=== PATIENT | female | born 1990 | race Caucasian/White ===

== ENCOUNTER 2018-01-17 20:02 | Emergency (ER) | payer BC ==
[2018-01-17] MEDS ORDERED: DEXAMETHASONE 10 MG/ML VIAL ONE (21:51)
[2018-01-17] MEDS ORDERED: MORPHINE 4 MG/ML SYR ONE (21:51)
[2018-01-17] MEDS ORDERED: DIAZEPAM 5 MG TABLET ONE (21:51)
[2018-01-17] MEDS ORDERED: NA CHLORIDE 0.9% 1,000 ML ONE (21:52)
[2018-01-17] MEDS ORDERED: KETOROLAC 30 MG/ML INJ ONE (21:52)
[2018-01-17] MEDS ORDERED: ONDANSETRON 4 MG/2 ML VIAL ONE (21:52)
--- NOTE | 2018-01-17 22:03 | RAD REPORT ---
EXAM DESCRIPTION: CT - Spine Lumbar Wo Con - 01/17/2018 9:34 pm CLINICAL HISTORY: History of herniated disc with recent steroid injection, new onset sharp pain in b ack COMPARISON: None. TECHNIQUE: Thin section axial imaging of the lumbar spine was performed. Sagittal and coronal recon struction images were generated and reviewed. All CT scans are performed using dose optimization technique as appropriate and may include automated exposure control or mA/KV adjustment according to patient size. FINDINGS: Lumbar bodies are normal in height and normal in AP alignment. There is a very minimal rig ht convex curvature of the lumbar spine. No compression fracture. No acute vertebral body finding. Th ere are no pars defects identified. Mild facet joint degenerative change present at L4-5. . No paraspinal soft tissue mass. Disc bulge changes are evident at L5-S1. Disc bulge appears to contact the left S1 nerve root. Mild d isc bulge present at L4-5. No central spinal stenosis. No significant foraminal encroachment seen. IMPRESSION: L5-S1 disc bulge appearing to contact the left S1 nerve root. Mild disc bulge at L4-5. Central canal detail is inherently limited. No finding to suspect epidural abscess or significant epi dural mass.
[2018-01-17 22:16] LABS: Urine Blood TRACE (NEG); Urine Glucose NEGATIVE (NEG); Urine Protein NEGATIVE (NEG); Urine Specific Gravity >1.030 (1.005-1.030); Urine pH 5.5 (5.0-7.0)
[2018-01-17 22:17] LABS: Absolute Lymphocytes (CBC) 2.7 K/uL (0.7-4.9); Absolute Monocytes 0.8 K/uL (0.1-1.3); Absolute Neutrophil 8.7 K/uL (1.8-8.0); Basophils % 0.4 % (0-1.3); Eosinophils % 0.7 % (0-4.4); MCH 27.2 pg (27.0-35.0); MPV 9.1 fL (7.6-11.3); Monocytes % 6.7 % (3.3-12.3); RBC Red Blood Cell Count 5.06 M/uL (3.86-4.86)
--- NOTE | 2018-01-17 22:32 | EDPHYS ---
Physician Documentation [facility] Name: Belia Peter Age: 27 yrs Sex: Female : 1990 Arrival Date: 01/17/2018 Time: 20:10 Bed 15 Private MD: Brown Bower E ED Physician Moris Faustin HPI: 01/17 21:10 This 27 yrs old Female presents to ER via Ambulatory with complaints of Back eloina Pain, Leg Pain. 21:10 The patient presents with pain that is acute, with no known mechanism of injury, and eloina decreased range of motion. The symptoms are located in the low back, right low back. Onset: The symptoms/episode began/occurred 3 day(s) ago. The pain radiates to the right low back. The pain does not radiate. Associated signs and symptoms: The patient has no apparent associated signs or symptoms. Modifying factors: The patient symptoms are alleviated by remaining still, the patient symptoms are aggravated by any movement, standing. Severity of symptoms: At their worst the symptoms were mild, in the emergency department the symptoms are unchanged. The patient has experienced similar episodes in the past, multiple times. 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 - Social history:: Smoking status: Patient/guardian denies using tobacco. - Ebola Screening: : No symptoms or risks identified at this time. - Family history:: not pertinent. ROS: 21:10 Constitutional: Negative for fever, chills, and weight loss, Eyes: Negative for injury, eloina pain, redness, and discharge, ENT: Negative for injury, pain, and discharge, Neck: Negative for injury, pain, and swelling, Cardiovascular: Negative for chest pain, palpitations, and edema, Respiratory: Negative for shortness of breath, cough, wheezing, and pleuritic chest pain, Abdomen/GI: Negative for abdominal pain, nausea, vomiting, diarrhea, and constipation, : Negative for injury, bleeding, discharge, and swelling, MS/Extremity: Negative for injury and deformity, Skin: Negative for injury, rash, and discoloration, Neuro: Negative for headache, weakness, numbness, tingling, and seizure, Psych: Negative for depression, anxiety, suicide ideation, homicidal ideation, and hallucinations, Allergy/Immunology: Negative for hives, rash, and allergies, Endocrine: Negative for neck swelling, polydipsia, polyuria, polyphagia, and marked weight changes, Hematologic/Lymphatic: Negative for swollen nodes, abnormal bleeding, and unusual bruising. 21:10 Back: Positive for decreased range of motion, pain at rest, pain with movement, radiated pain, of the right low back. Exam: 21:10 Constitutional: This is a well developed, well nourished patient who is awake, alert, eloina and in no acute distress. Head/Face: Normocephalic, atraumatic. Eyes: Pupils equal round and reactive to light, extra-ocular motions intact. Lids and lashes normal. Conjunctiva and sclera are non-icteric and not injected. Cornea within normal limits. Periorbital areas with no swelling, redness, or edema. ENT: Nares patent. No nasal discharge, no septal abnormalities noted. Tympanic membranes are normal and external auditory canals are clear. Oropharynx with no redness, swelling, or masses, exudates, or evidence of obstruction, uvula midline. Mucous membranes moist. Neck: Trachea midline, no thyromegaly or masses palpated, and no cervical lymphadenopathy. Supple, full range of motion without nuchal rigidity, or vertebral point tenderness. No Meningismus. Chest/axilla: Normal chest wall appearance and motion. Nontender with no deformity. No lesions are appreciated. Cardiovascular: Regular rate and rhythm with a normal S1 and S2. No gallops, murmurs, or rubs. Normal PMI, no JVD. No pulse deficits. Respiratory: Lungs have equal breath sounds bilaterally, clear to auscultation and percussion. No rales, rhonchi or wheezes noted. No increased work of breathing, no retractions or nasal flaring. Abdomen/GI: Soft, non-tender, with normal bowel sounds. No distension or tympany. No guarding or rebound. No evidence of tenderness throughout. Female : Normal external genitalia. Skin: Warm, dry with normal turgor. Normal color with no rashes, no lesions, and no evidence of cellulitis. MS/ Extremity: Pulses equal, no cyanosis. Neurovascular intact. Full, normal range of motion. Neuro: Awake and alert, GCS 15, oriented to person, place, time, and situation. Cranial nerves II-XII grossly intact. Motor strength 5/5 in all extremities. Sensory grossly intact. Cerebellar exam normal. Normal gait. Psych: Awake, alert, with orientation to person, place and time. Behavior, mood, and affect are within normal limits. Vital Signs: 20:16 BP 139 / 104; Pulse 88; Resp 16; Temp 97.5(TE); Pulse Ox 100% on R/A; Weight 133.81 kg; la1 Height 5 ft. 7 in. (170.18 cm); 22:40 BP 114 / 77; Pulse 70; Resp 18; Pulse Ox 98% on R/A; lp1 20:16 Body Mass Index 46.20 (133.81 kg, 170.18 cm) [facility] MDM: 20:59 Patient medically screened. [facility] 22:31 Data reviewed: vital signs, nurses notes, lab test result(s), radiologic studies, CT eloina scan. 01/17 21:10 Order name: CBC with Diff; Complete Time: 22:38 [facility] 01/17 21:10 Order name: Comprehensive Metabolic Panel; Complete Time: 22:38 [facility] 01/17 21:10 Order name: CT Lumbar Spine Wo Con; Complete Time: 22:31 [facility] 01/17 21:53 Order name: Urine Dipstick--Ancillary (enter results); Complete Time: 22:31 [facility] 01/17 21:10 Order name: Urine Dipstick-Ancillary (obtain specimen); Complete Time: 22:11 [facility] Administered Medications: 22:10 Drug: NS 0.9% 1000 ml Route: IV; Rate: 1 bolus; Site: left antecubital; 1 23:00 Follow up: IV Status: Completed infusion aa 22:10 Drug: TORadol 30 mg Route: IVP; Site: left antecubital; 1 22:11 Drug: morphine 4 mg Route: IVP; Site: left antecubital; lp1 22:11 Drug: Zofran 4 mg Route: IVP; Site: left antecubital; 1 01/18 03:52 Follow up: Response: No adverse reaction [facility] 01/17 22:11 Drug: Decadron - Dexamethasone 10 mg Route: IVP; Site: left antecubital; 1 23:15 Follow up: Response: No adverse reaction; Pain is decreased aa1 22:12 Drug: Valium 5 mg Route: PO; lp1 23:15 Follow up: Response: No adverse reaction; Pain is decreased aa1 Disposition: 01/17/18 22:32 Discharged to Home. Impression: Low back pain, Sciatica, right side. - Condition is Fair. - Discharge Instructions: Back Pain, Adult, Chronic Back Pain, Sciatica, Back Pain, Adult, [id number], Epidural Steroid Injection, Sciatica, [id number]. - Prescriptions for Ibuprofen 600 mg Oral Tablet - take 1 tablet by ORAL route every 6 hours As needed take with food; 30 tablet. Skelaxin 800 mg Oral Tablet - take 1 tablet by ORAL route every 6 hours As needed; 28 tablet. Tylenol- Codeine #3 300-30 mg Oral Tablet - take 2 tablets by ORAL route every 6 hours As needed; 26 tablet. Medrol (Luc) 4 mg Oral Tablets, Dose Pack - take 1 tablet by ORAL route as directed - follow package instructions; 1 packet. - Medication Reconciliation Form, Thank You Letter, Antibiotic Education, Prescription Opioid Use, Family Work Release form. - Follow up: Brown Bower; When: 2 - 3 days; Reason: Recheck today's complaints, Continuance of care, Re-evaluation by your physician. Follow up: Sylvester De Jesus; When: 2 - 3 days; Reason: Recheck today's complaints, Continuance of care, Re-evaluation by your physician. - Problem is new. - Symptoms have improved. Signatures: Dispatcher [employer] EDFatmata Choi RN RN aa1 Moris Faustin MD MD cha Pena, Laura RN RN lp1 Jae Cifuentes RN RN la1 Corrections: (The following items were deleted from the chart) 23:13 22:32 01/17/2018 22:32 Discharged to Home. Impression: Low back pain; Sciatica, right aa1 side. Condition is Fair. Discharge Instructions: Back Pain, Adult, Chronic Back Pain, Sciatica, Back Pain, Adult, [id number], Epidural Steroid Injection, Sciatica, [id number]. Prescriptions for Ibuprofen 600 mg Oral Tablet - take 1 tablet by ORAL route every 6 hours As needed take with food; 30 tablet, Skelaxin 800 mg Oral Tablet - take 1 tablet by ORAL route every 6 hours As needed; 28 tablet, Tylenol-Codeine #3 300-30 mg Oral Tablet - take 2 tablets by ORAL route every 6 hours As needed; 26 tablet, Medrol (Luc) 4 mg Oral Tablets, Dose Pack - take 1 tablet by ORAL route as directed - follow package instructions; 1 packet. and Forms are Medication Reconciliation Form, Thank You Letter, Antibiotic Education, Prescription Opioid Use. Follow up: Brown Bower; When: 2 - 3 days; Reason: Recheck today's complaints, Continuance of care, Re-evaluation by your physician. Follow up: Sylvester De Jesus; When: 2 - 3 days; Reason: Recheck today's complaints, Continuance of care, Re-evaluation by your physician. Problem is new. Symptoms have improved. eloina
--- NOTE | 2018-01-17 22:32 | ER ---
Nurse's Notes [facility] Name: Belia Peter Age: 27 yrs Sex: Female : 1990 Arrival Date: 01/17/2018 Time: 20:10 Bed 15 Private MD: Brown Bower E Diagnosis: Low back pain;Sciatica, right side Presentation: 01/17 20:15 Presenting complaint: Patient states: I have a herniated disk and I got a steroid la1 injection on Wednesday morning, Wednesday night I began having sharp, shooting pain in my back that is new and when I called the office they said to come to the ER. Transition of care: patient was not received from another setting of care. Onset of symptoms was January 17, 2018. Risk Assessment: Do you want to hurt yourself or someone else? Patient reports no desire to harm self or others. Initial Sepsis Screen: Does the patient meet any 2 criteria? No. Patient's initial sepsis screen is negative. Does the patient have a suspected source of infection? No. Patient's initial sepsis screen is negative. Care prior to arrival: None. 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 - Social history:: Smoking status: Patient/guardian denies using tobacco. - Ebola Screening: : No symptoms or risks identified at this time. - Family history:: not pertinent. Screenin:40 Abuse screen: Denies threats or abuse. Denies injuries from another. Nutritional lp1 screening: No deficits noted. Tuberculosis screening: No symptoms or risk factors identified. Fall Risk None identified. Assessment: 21:01 Reassessment: Patient appears in no apparent distress at this time. Patient and/or aa1 family updated on plan of care and expected duration. Pain level reassessed. Patient is alert, oriented x 3, equal unlabored respirations, skin warm/dry/pink. Dr. Faustin at bedside for initial provider assessment. 21:28 Reassessment: Patient appears in no apparent distress at this time. Pt taken to CT at aa1 this time. 23:10 General: Appears uncomfortable, Behavior is appropriate for age. Pain: Complains of lp1 pain in lumbar area Pain currently is 5 out of 10 on a pain scale. Neuro: Level of Consciousness is awake, alert, obeys commands, Oriented to person, place, time, situation. Respiratory: Respiratory effort is even, unlabored. Derm: Skin is pink, warm \T\ dry. Vital Signs: 20:16 BP 139 / 104; Pulse 88; Resp 16; Temp 97.5(TE); Pulse Ox 100% on R/A; Weight 133.81 kg; la1 Height 5 ft. 7 in. (170.18 cm); 22:40 BP 114 / 77; Pulse 70; Resp 18; Pulse Ox 98% on R/A; lp1 20:16 Body Mass Index 46.20 (133.81 kg, 170.18 cm) la1 ED Course: 20:10 Patient arrived in ED. al2 20:10 Brown Bower MD is Private Physician. al2 20:16 Triage completed. la1 20:16 Arm band placed on left wrist. la1 20:59 Moris Faustin MD is Attending Physician. eloina 21:00 Fatmata Ramirez RN is Primary Nurse. aa1 21:[address] kc3 21:35 CT Lumbar Spine Wo Con In Process Unspecified. EDMS 22:00 Inserted saline lock: 20 gauge in left antecubital area, using aseptic technique. Blood lp1 collected. 22:32 Brown Bower MD is Referral Physician. eloina 22:32 Sylvester De Jesus MD is Referral Physician. eloina 22:40 Patient has correct armband on for positive identification. lp1 23:08 No provider procedures requiring assistance completed. IV discontinued, No lp1 redness/swelling at site. Pressure dressing applied. Administered Medications: 22:10 Drug: NS 0.9% 1000 ml Route: IV; Rate: 1 bolus; Site: left antecubital; lp1 23:00 Follow up: IV Status: Completed infusion aa1 22:10 Drug: TORadol 30 mg Route: IVP; Site: left antecubital; lp1 22:11 Drug: morphine 4 mg Route: IVP; Site: left antecubital; lp1 22:11 Drug: Zofran 4 mg Route: IVP; Site: left antecubital; lp1 01/18 03:52 Follow up: Response: No adverse reaction aa1 01/17 22:11 Drug: Decadron - Dexamethasone 10 mg Route: IVP; Site: left antecubital; lp1 23:15 Follow up: Response: No adverse reaction; Pain is decreased aa1 22:12 Drug: Valium 5 mg Route: PO; lp1 23:15 Follow up: Response: No adverse reaction; Pain is decreased aa1 Outcome: 22:32 Discharge ordered by MD. duvall 23:09 Discharged to home ambulatory, with significant other. lp1 23:09 Condition: good 23:09 Discharge instructions given to patient, Instructed on discharge instructions, follow up and referral plans. medication usage, Demonstrated understanding of instructions, follow-up care, medications, Prescriptions given X 4. 23:13 Patient left the ED. aa1 Signatures: Dispatcher [employer] EDMS Fatmata Ramirez RN RN aa1 Moris Faustin MD MD cha Pena, Laura, RN RN lp1 Jae Cifuentes RN RN la1 Love, Angelica al2 Campbell, Kim 3
[2018-01-17 22:34] LABS: Albumin 3.6 g/dL (3.4-5.0); Bilirubin Total 0.2 mg/dL (0.2-1.0); Potassium 3.9 mmol/L (3.5-5.1); Protein, Total 8.1 g/dL (6.4-8.2)
[2018-01-17 23:16] VITALS: TEMP 97.5
[2018-01-17 23:17] VITALS: BP 114/77; O2SAT 98
== END 2018-01-17 23:13 | disposition home or self-care (01) ==
LOC: ER 20:02
DX: M54.41 Lumbago with sciatica, right side (principal)
CPT/HCPCS: 36415; 72131; 80053; 81003; 85025; 96361; 96374; 96375; 99284; J1100; J2405; J7030

== ENCOUNTER 2019-04-11 22:06 | Emergency (ER) | payer BC, SELFPAY ==
[2019-04-11] MEDS ORDERED: HYDROCODONE/APAP 7.5/325 MG TAB ONE (23:19)
[2019-04-11] MEDS ORDERED: TETRACAINE HCL 0.5% 4ML OPTH ONE (23:20)
[2019-04-11] MEDS ORDERED: FLUORESCEIN SODIUM 1 MG/WRAP ONE (23:20)
[2019-04-12] LABS: Urine Blood TRACE (NEG); Urine Glucose NEGATIVE (NEG); Urine Protein NEGATIVE (NEG)
[2019-04-12] MEDS ORDERED: FLUORESCEIN SODIUM 1 MG/WRAP ONE (00:18)
[2019-04-12] MEDS ORDERED: GENTAMICIN 0.3% OPTH DROP 5ML ONE (00:29)
--- NOTE | 2019-04-12 00:32 | EDPHYS ---
Physician Documentation [facility] Name: Belia Peter Age: 29 yrs Sex: Female : 1990 Arrival Date: 04/11/2019 Time: 22:08 Bed 16 Private MD: ED Physician Jordan Fierro HPI: 04/11 23:20 This 29 yrs old Female presents to ER via Ambulatory with complaints of Eye cp Swelling. 23:20 The patient is experiencing decreased vision, pain, redness, to the right eye, caused cp by an unknown mechanism. Onset: The symptoms/episode began/occurred yesterday, and became worse today. 23:20 Duration: the symptoms are continuous. Aggravated by light, opening eye, Alleviated by cp nothing. Associated signs and symptoms: Pertinent negatives: ear ache, fever, runny nose, drainage from eye. Patient wears glasses, wears soft contacts, patient reports she has not worn any contact lenses for the past week. Severity of symptoms: in the emergency department the symptoms are unchanged despite home interventions. 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 - Social history:: Smoking status: Patient/guardian denies using tobacco, Patient/guardian denies using alcohol, street drugs. - Ebola Screening: : Patient negative for fever greater than or equal to 101.5 degrees Fahrenheit, and additional compatible Ebola Virus Disease symptoms Patient denies exposure to infectious person Patient denies travel to an Ebola-affected area in the 21 days before illness onset. ROS: 23:20 Constitutional: Negative for body aches, chills, fever, poor PO intake. cp 23:20 Eyes: Positive for pain, photophobia, redness, visual disturbance, of the right eye, cp Negative for discharge, foreign body sensation. 23:20 ENT: Negative for drainage from ear(s), ear pain, sinus congestion, sinus pain, sore throat, difficulty swallowing, difficulty handling secretions. 23:20 Neck: Negative for pain with movement, pain at rest, stiffness. 23:20 Cardiovascular: Negative for chest pain, palpitations. 23:20 Respiratory: Negative for cough, shortness of breath, wheezing. 23:20 Abdomen/GI: Negative for abdominal pain, nausea, vomiting, and diarrhea. 23:20 Skin: Negative for cellulitis, rash. 23:20 Neuro: Negative for altered mental status, dizziness, headache, numbness, weakness. 23:20 All other systems are negative. Exam: 23:30 Constitutional: The patient appears alert, awake, non-toxic, well developed, well cp nourished, in obvious pain, uncomfortable. 23:30 Head/Face: Normocephalic, atraumatic. cp 23:30 Eyes: Periorbital structures: appear normal, no erythema, no swelling, Pupils: equal, round, and reactive to light and accomodation, Extraocular movements: intact throughout, Conjunctiva: injected, bilaterally, right eye worse than left, Corneas: abrasion, on the right, at 6 o'clock, medium size, foreign body, is not appreciated, a fluorescein strip employed to appreciate the findings, Anterior chamber: normal, no hyphema, Lids and lashes: drainage, is not appreciated, mild swelling of right upper and lower lids. Intraocular pressure: right eye = 20mmHg, left eye = 16mmHg. 23:30 ENT: External ear(s): are unremarkable, Ear canal(s): are normal, clear, TM's: dullness, bilaterally, Nose: is normal, Mouth: Lips: moist, Oral mucosa: pink and intact, moist, Posterior pharynx: is normal, airway is patent, no erythema, no exudate. 23:30 Neck: ROM/movement: is normal, is supple, without pain, no range of motions limitations, no nuchal rigidity, Lymph nodes: no appreciated lymphadenopathy. 23:30 Chest/axilla: Inspection: normal, Palpation: is normal, no crepitus, no tenderness. 23:30 Cardiovascular: Rate: normal, Rhythm: regular. 23:30 Respiratory: the patient does not display signs of respiratory distress, Respirations: normal, no use of accessory muscles, no retractions, no splinting, no tachypnea, labored breathing, is not present, Breath sounds: are clear throughout, no decreased breath sounds, no stridor, no wheezing. 23:30 Abdomen/GI: Exam negative for discomfort, distension, guarding, Inspection: abdomen appears normal. 23:30 Skin: cellulitis, is not appreciated, no rash present. 23:30 Neuro: Orientation: to person, place \T\ time. Mentation: is normal, Cerebellar function: is grossly normal, Motor: moves all fours, strength is normal, Sensation: is normal. Vital Signs: 22:18 BP 140 / 70; Pulse 91; Resp 17; Temp 98.2(O); Pulse Ox 99% on R/A; Weight 140.61 kg; tl1 Height 5 ft. 7 in. (170.18 cm); Pain 02/21; 04/12 00:39 BP 146 / 97; Pulse 94; Resp 18 S; Pulse Ox 99% on R/A; jd3 04/11 22:18 Body Mass Index 48.55 (140.61 kg, 170.18 cm) tl1 Visual Acuity: 00:08 Left Eye Visual acuity 20/40, Pupil size 3 mm, Normal, React To Light, Reactive To jd3 Accomodation; Right Eye Visual acuity 20/50, Pupil size 3 mm, Normal, React To Light, Reactive To Accomodation; Both Eyes Visual acuity 20/50; Without Lenses; MDM: 04/11 23:10 Patient medically screened. cp 23:20 Differential diagnosis: Corneal abrasion of right eye. Corneal ulcer of right eye. cp Foreign body in right eye. Acute iritis of right eye. Infectious conjunctivitis in right eye. 04/12 00:15 Physician consultation: Cheli Franks MD was called at 00:10, was contacted at 00:10, cp regarding consult, patient's condition, outpatient follow-up, today, \T\0800 in clinic would like medications started, gentamycin eye drops apply 1 drop to right eye every 1 hr and f/u in clinic today \T\0800. 00:15 Data reviewed: vital signs, nurses notes, I have discussed the patient's cp presentation/case with the attending Emergency Department Physician;. 00:31 Counseling: I had a detailed discussion with the patient and/or guardian regarding: the cp historical points, exam findings, and any diagnostic results supporting the discharge/admit diagnosis, the need for outpatient follow up, for definitive care, an opthalmologist, to return to the emergency department if symptoms worsen or persist or if there are any questions or concerns that arise at home. 00:31 Response to treatment: the patient's symptoms have markedly improved after treatment, cp Pain improved, and as a result, I will discharge patient. 04/11 23:28 Order name: Urine --Ancillary (enter results) ds4 04/11 23:28 Order name: Urine Dipstick--Ancillary (enter results) ds4 04/11 23:15 Order name: Visual Acuity; Complete Time: 00:14 cp 04/11 23:15 Order name: Eye Tray; Complete Time: 23:23 cp 04/11 23:15 Order name: Fluoresene Opth strip; Complete Time: 23:23 cp 04/11 23:15 Order name: Urine Dipstick-Ancillary (obtain specimen); Complete Time: 23:26 cp 04/11 23:15 Order name: Urine Test (obtain specimen); Complete Time: 23:26 cp Administered Medications: 04/11 23:22 Drug: Tetracaine Drops 0.5 % 1 drops Route: Ophthalmic; Site: right eye; jd3 04/12 00:20 Follow up: Response: No adverse reaction jd3 04/11 23:26 Drug: Hydrocodone-Acetaminophen (7.5 mg-325 mg) 1 tabs Route: PO; jd3 04/12 00:25 Follow up: Response: No adverse reaction; RASS: Alert and Calm (0) jd3 00:30 Drug: Gentamicin Drops 0.3 % 2 drops Route: Ophthalmic; Site: right eye; jd3 00:36 Follow up: Response: Medication administered at discharge. jd3 Disposition: 00:45 Chart complete. cp 07:19 Co-signature as Attending Physician, Jordan Fierro MD I agree with the assessment and tw4 plan of care. Disposition: 04/12/19 00:31 Discharged to Home. Impression: Panuveitis, right eye. - Condition is Stable. - Discharge Instructions: Uveitis. - Prescriptions for Gentamicin 0.3 % Ophthalmic Drops - instill 1 drop by OPHTHALMIC route as directed for 1 day apply 1 drop to right eye every hour while awake today; 1 bottle. - Medication Reconciliation Form, Thank You Letter, Antibiotic Education, Prescription Opioid Use form. - Follow up: Cheli Franks MD; When: Today; Reason: 0800 for reevaluation. Signatures: Dispatcher [employer] EDZahira Troncoso RN RN tl1 Moris Nicholson PA PA cp Davies, Jonathon, RN RN jd3 Jordan Fierro MD MD tw4 Corrections: (The following items were deleted from the chart) 00:39 00:31 04/12/2019 00:31 Discharged to Home. Impression: Panuveitis, right eye. Condition jd3 is Stable. Forms are Medication Reconciliation Form, Thank You Letter, Antibiotic Education, Prescription Opioid Use. Follow up: Cheli Franks; When: Today; Reason: 0800 for reevaluation. cp
--- NOTE | 2019-04-12 00:32 | ER ---
Nurse's Notes [facility] Name: Belia Peter Age: 29 yrs Sex: Female : 1990 Arrival Date: 04/11/2019 Time: 22:08 Bed 16 Private MD: Diagnosis: Panuveitis, right eye Presentation: 04/11 22:16 Presenting complaint: Patient states: I started having sensitivity in my right eye tl1 yesterday and then it started being painful this morning and the pain has gotten worse thru the day. I can't open my right eye. Transition of care: patient was not received from another setting of care. Onset of symptoms was April 11, 2019. Risk Assessment: Do you want to hurt yourself or someone else? Patient reports no desire to harm self or others. Initial Sepsis Screen: Does the patient meet any 2 criteria? No. Patient's initial sepsis screen is negative. Does the patient have a suspected source of infection? No. Patient's initial sepsis screen is negative. Care prior to arrival: None. 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 - Social history:: Smoking status: Patient/guardian denies using tobacco, Patient/guardian denies using alcohol, street drugs. - Ebola Screening: : Patient negative for fever greater than or equal to 101.5 degrees Fahrenheit, and additional compatible Ebola Virus Disease symptoms Patient denies exposure to infectious person Patient denies travel to an Ebola-affected area in the 21 days before illness onset. Screenin:03 Abuse screen: Denies threats or abuse. Nutritional screening: No deficits noted. jd3 Tuberculosis screening: No symptoms or risk factors identified. Fall Risk Ambulatory Aid- None/Bed Rest/Nurse Assist (0 pts). Gait- Normal/Bed Rest/Wheelchair (0 pts) Mental Status- Oriented to own ability (0 pts). Total Hunt Fall Scale indicates No Risk (0-24 pts). Assessment: 23:02 General: Appears in no apparent distress. uncomfortable, Behavior is calm, cooperative, jd3 appropriate for age. Pain: Complains of pain in right eye Quality of pain is described as stinging. Neuro: Level of Consciousness is awake, alert, obeys commands, Oriented to person, place, time, situation. Cardiovascular: Capillary refill < 3 seconds Patient's skin is warm and dry. Respiratory: Airway is patent Respiratory effort is even, unlabored, Respiratory pattern is regular, symmetrical, Denies cough, shortness of breath. GI: No signs and/or symptoms were reported involving the gastrointestinal system. : No signs and/or symptoms were reported regarding the genitourinary system. EENT: Eyes are tearing on right eye Reports pain in right eye. Derm: Skin is intact, Skin is dry, Skin is normal, Skin temperature is warm. Musculoskeletal: Circulation, motion, and sensation intact. Range of motion: intact in all extremities. 04/12 00:30 Reassessment: Patient appears in no apparent distress at this time. Patient and/or jd3 family updated on plan of care and expected duration. Pain level reassessed. Patient is alert, oriented x 3, equal unlabored respirations, skin warm/dry/pink. Patient states feeling better. 00:38 Reassessment: Patient appears in no apparent distress at this time. Patient and/or jd3 family updated on plan of care and expected duration. Pain level reassessed. Patient is alert, oriented x 3, equal unlabored respirations, skin warm/dry/pink. reported understanding of discharge instructions, even and steady gait upon discharge. Vital Signs: 04/11 22:18 BP 140 / 70; Pulse 91; Resp 17; Temp 98.2(O); Pulse Ox 99% on R/A; Weight 140.61 kg; tl1 Height 5 ft. 7 in. (170.18 cm); Pain 02/21; 04/12 00:39 BP 146 / 97; Pulse 94; Resp 18 S; Pulse Ox 99% on R/A; jd3 04/11 22:18 Body Mass Index 48.55 (140.61 kg, 170.18 cm) tl1 Visual Acuity: 00:08 Left Eye Visual acuity 20/40, Pupil size 3 mm, Normal, React To Light, Reactive To jd3 Accomodation; Right Eye Visual acuity 20/50, Pupil size 3 mm, Normal, React To Light, Reactive To Accomodation; Both Eyes Visual acuity 20/50; Without Lenses; ED Course: 04/11 22:08 Patient arrived in ED. cl3 22:18 Triage completed. tl1 22:19 Arm band placed on left wrist. tl1 22:43 Moris Nicholson PA is PHCP. cp 22:43 Jordan Fierro MD is Attending Physician. cp 23:02 Prasanna Pang, PETAR is Primary Nurse. jd3 23:03 Patient has correct armband on for positive identification. Bed in low position. Call jd3 light in reach. Side rails up X 1. Adult w/ patient. 04/12 00:07 Assist provider with eye exam of right eye. using fluorescein stain, Performed by Moris ARCE Patient tolerated well. 00:28 Cheli Franks MD is Referral Physician. cp 00:38 Patient did not have IV access during this emergency room visit. jd3 Administered Medications: 04/11 23:22 Drug: Tetracaine Drops 0.5 % 1 drops Route: Ophthalmic; Site: right eye; jd3 04/12 00:20 Follow up: Response: No adverse reaction jd3 04/11 23:26 Drug: Hydrocodone-Acetaminophen (7.5 mg-325 mg) 1 tabs Route: PO; jd3 04/12 00:25 Follow up: Response: No adverse reaction; RASS: Alert and Calm (0) jd3 00:30 Drug: Gentamicin Drops 0.3 % 2 drops Route: Ophthalmic; Site: right eye; jd3 00:36 Follow up: Response: Medication administered at discharge. jd3 Outcome: 00:31 Discharge ordered by . cp 00:37 Discharged to home ambulatory, with family. jd3 00:37 Condition: stable 00:37 Discharge instructions given to patient, family, Instructed on discharge instructions, follow up and referral plans. medication usage, Demonstrated understanding of instructions, follow-up care, medications, Prescriptions given X 1. 00:39 Patient left the ED. jd3 Signatures: Zahira Chávez RN RN tl1 Moris Nicholson PA PA cp Davies, Jonathon, RN RN jd3 Lewis, Charde cl3
[2019-04-12 01:09] VITALS: TEMP 98.2; O2SAT 99
[2019-04-12 01:11] VITALS: BP 146/97
== END 2019-04-12 00:39 | disposition home or self-care (01) ==
LOC: ER 22:06
DX: H44.111 Panuveitis, right eye (principal)
CPT/HCPCS: 81003; 81025; 99283

== ENCOUNTER 2019-06-09 15:45 | Emergency (ER) | payer SELFPAY ==
--- OUTSIDE RECORDS SUMMARY | 2019-06-09 15:47 | XMS REPORT ---
:1990 [facility] Address [address] [place] [address] Dr. Meeks [address] [place] [id number] Care Team Providers Name Role Phone Unavailable Unavailable Unavailable Problems This patient has no known problems. Allergies, Adverse Reactions, Alerts This patient has no known allergies or adverse reactions. Medications This patient has no known medications.
[2019-06-09] MEDS ORDERED: ONDANSETRON 4 MG/2 ML VIAL ONE (16:55)
[2019-06-09] MEDS ORDERED: MORPHINE 4 MG/ML SYR ONE (16:55)
[2019-06-09] MEDS ORDERED: NA CHLORIDE 0.9% 1,000 ML ONE (16:56)
[2019-06-09 17:16] LABS: Absolute Lymphocytes (CBC) 2.1 K/uL (0.7-4.9); Basophils % 0.7 % (0-1.3); Hematocrit 44.6 % (36.0-45.0); Lymphocytes % 24.8 % (15.3-44.8); MPV 9.1 fL (7.6-11.3); RBC Red Blood Cell Count 5.49 M/uL (3.86-4.86)
[2019-06-09 17:34] LABS: Albumin 3.8 g/dL (3.4-5.0); Bilirubin Direct 0.1 mg/dL (0-0.2); Bilirubin Total 0.3 mg/dL (0.2-1.0); Potassium 3.7 mmol/L (3.5-5.1); Protein, Total 8.2 g/dL (6.4-8.2)
[2019-06-09] MEDS ORDERED: KETOROLAC 30 MG/ML INJ ONE (17:42)
[2019-06-09] MEDS ORDERED: FENTANYL CITR 100 MCG/2 ML ONE (18:27)
--- NOTE | 2019-06-09 18:31 | RAD REPORT ---
EXAM DESCRIPTION: CT - Abdomen Pelvis W Contrast - 06/09/2019 6:06 pm CLINICAL HISTORY: Abdominal pain COMPARISON: none. TECHNIQUE: Computed axial tomography of the abdomen pelvis was obtained. 100 cc Isovue-300 was admin istered intravenously. Oral contrast was not requested which limits evaluation of bowel. All CT scans are performed using dose optimization technique as appropriate and may include automated exposure control or mA/KV adjustment according to patient size. FINDINGS: Fatty infiltration of the liver. Hepatic and splenic granulomata. Mild hepatomegaly Cholecystectomy Pancreas, adrenal and kidneys appear unremarkable. There is no evidence of diverticulitis. Hysterectomy. Small umbilical hernia IMPRESSION: Mild hepatomegaly with fatty infiltration
[2019-06-09] MEDS ORDERED: HYDROCODONE/APAP 10/325 TAB ONE (19:20)
[2019-06-09 19:23] LABS: Urine Blood 2+ (NEG); Urine Glucose NEGATIVE (NEG); Urine Protein TRACE (NEG)
[2019-06-09] MEDS ORDERED: CEFTRIAXONE/SWI 1gm 1 GM/10 ML SYR ONE (19:26)
[2019-06-09 19:30] LABS: Urine Bacteria 20-50 /HPF (<20); Urine Culture Reflex Order REFLEXED
--- NOTE | 2019-06-09 19:45 | ER ---
Nurse's Notes [facility] Name: Belia Peter Age: 29 yrs Sex: Female : 1990 Arrival Date: 06/09/2019 Time: 15:45 Bed 17 Private MD: Diagnosis: Acute cystitis;Abdominal and pelvic pain Presentation: 06/09 16:21 Presenting complaint: Patient states: lower abdominal pain and R side pain since ch yesterday morning, diarrhea yesterday. Transition of care: patient was not received from another setting of care. Onset of symptoms was June 08, 2019 at 08:00. Risk Assessment: Do you want to hurt yourself or someone else? Patient reports no desire to harm self or others. Initial Sepsis Screen: Does the patient meet any 2 criteria? No. Patient's initial sepsis screen is negative. Does the patient have a suspected source of infection? No. Patient's initial sepsis screen is negative. Care prior to arrival: None. 16:21 Method Of Arrival: Ambulatory 16:21 Acuity: PRIMO 3 Triage Assessment: 16:22 General: Appears in no apparent distress. uncomfortable, Behavior is calm, cooperative, ch appropriate for age. Pain: Complains of pain in posterior aspect of right lateral abdomen, anterior aspect of right lateral abdomen, right lower quadrant and left lower quadrant Pain currently is 7 out of 10 on a pain scale. 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 . - Social history:: Smoking status: Patient/guardian denies using tobacco, Patient/guardian denies using alcohol, street drugs. - Ebola Screening: : Patient negative for fever greater than or equal to 101.5 degrees Fahrenheit, and additional compatible Ebola Virus Disease symptoms Patient denies exposure to infectious person Patient denies travel to an Ebola-affected area in the 21 days before illness onset No symptoms or risks identified at this time. Screenin:35 Abuse screen: Denies threats or abuse. Nutritional screening: No deficits noted. ae4 Tuberculosis screening: No symptoms or risk factors identified. Fall Risk None identified. Assessment: 17:35 General: Appears in no apparent distress. uncomfortable, obese, Behavior is calm, ae4 cooperative. Pain: Complains of pain in suprapubic area, right lower quadrant and left lower quadrant. Neuro: Level of Consciousness is awake, alert, obeys commands, Oriented to person, place, time, situation, Appropriate for age. Cardiovascular: Skin warm and mildly diaphoretic. 17:35 Reassessment: Patient reports no change to pain level. Provider notified and new orders ae4 received. 17:35 Respiratory: Airway is patent Respiratory effort is even, unlabored, Respiratory ae4 pattern is regular, symmetrical, Breath sounds are clear bilaterally. GI: Bowel sounds present X 4 quads. Abdomen is tender to palpation in right lower quadrant. : Reports burning with urination, little urine output, states "only like a drop or two will come out.". EENT: No signs and/or symptoms were reported regarding the EENT system. Derm: Skin is flushed. Musculoskeletal: No signs and/or symptoms reported regarding the musculoskeletal system. 18:00 Reassessment: Patient reports no change to pain level. Provider notified, no new orders ae4 received. 18:25 Reassessment: patient reports increased pain to LRQ, provider notified, new orders ae4 received. 18:30 Reassessment: Encouraged patient to inform nurse if she needs to urinate, as a urine ae4 sample is needed. Patient states she is unable to urinate at this time. Will continue to monitor. 19:19 Reassessment: Patient reports increased pain to the lower right quadrant, provider ae4 notified, new orders received. 19:28 General: Appears in no apparent distress. uncomfortable, Behavior is calm, cooperative, tl2 appropriate for age. Pain: Complains of pain in suprapubic area and anterior aspect of right lateral abdomen and posterior aspect of right lateral abdomen Pain currently is 6 out of 10 on a pain scale. Neuro: Level of Consciousness is awake, alert, obeys commands, Oriented to person, place, time, situation. : Reports burning with urination, flank pain. Derm: Skin is pink, warm \\T\\ dry. 19:28 Reassessment: Sent urine to lab, awaiting results. Pt received pain medication and tl2 antibiotic. Resting at this time, no questions or concerns. Family at bedside. 20:05 Reassessment: Patient appears in no apparent distress at this time. Patient and/or tl2 family updated on plan of care and expected duration. Pain level reassessed. Patient is alert, oriented x 3, equal unlabored respirations, skin warm/dry/pink. pt and family verbalized understanding of discharge instructions, need for follow up and prescription usage Patient states feeling better. Vital Signs: 16:22 BP 133 / 91; Pulse 81; Resp 17; Temp 97.9; Pulse Ox 96% on R/A; Height 5 ft. 7 in. (170.18 cm); Pain 7/10; 17:35 BP 136 / 96; Pulse 72; Resp 19; Pulse Ox 100% on R/A; ae4 19:30 BP 126 / 72; Pulse 81; Resp 18; Pulse Ox 96% on R/A; Pain 6/10; tl2 20:05 BP 126 / 72; Pulse 73; Resp 18; Pulse Ox 97% on R/A; tl2 ED Course: 15:45 Patient arrived in ED. as 15:52 Jae Cifuentes FNP-C [facility]. la1 15:52 Victor Manuel Boyce MD is Attending Physician. la1 16:22 Triage completed. 16:22 Arm band placed on left wrist. Patient placed in an exam room, on a stretcher. 16:27 John Ludwig, PETAR is Primary Nurse. ae4 17:08 Initial lab(s) drawn, by dc, sent to lab. Inserted saline lock: 22 gauge in right jb1 antecubital area, using aseptic technique. Blood collected. 17:48 Bed in low position. Call light in reach. Side rails up X2. Adult w/ patient. Pulse ox ae4 on. NIBP on. Warm blanket given. 18:06 CT Abd/Pelvis - IV Contrast Only In Process Unspecified. EDMS 20:05 No provider procedures requiring assistance completed. IV discontinued, intact, tl2 bleeding controlled, No redness/swelling at site. Pressure dressing applied. Administered Medications: 17:15 Drug: Zofran 4 mg Route: IVP; Site: right antecubital; ae4 17:44 Follow up: Response: Nausea is decreased ae4 17:15 Drug: NS 0.9% 1000 ml Route: IV; Rate: 1000 ml; Site: right antecubital; ae4 20:08 Follow up: IV Status: Completed infusion; IV Intake: 1000ml tl2 17:19 Drug: morphine 4 mg Route: IVP; Site: right antecubital; ae4 17:40 Follow up: Response: Pain is unchanged, physician notified ae4 18:29 Follow up: Response: RASS: Restless (+1) ae4 17:40 Drug: TORadol - Ketorolac 15 mg Route: IVP; Site: right antecubital; ae4 18:19 Follow up: Response: Pain is unchanged, physician notified; no new orders received at ae4 this time. 18:30 Follow up: Response: RASS: Restless (+1) ae4 18:29 Drug: fentaNYL (PF) 50 mcg Route: IVP; Site: right antecubital; ae4 19:01 Follow up: Response: Pain is decreased; RASS: Alert and Calm (0) ae4 19:21 Drug: Clearwater 10 mg-325 mg 1 tabs Route: PO; tl2 20:07 Follow up: Response: No adverse reaction; Pain is decreased; RASS: Alert and Calm (0) tl2 19:27 Drug: Rocephin 1 grams Route: IV; Rate: calculated rate; Site: right antecubital; tl2 19:30 Follow up: IV Status: Completed infusion; IV Intake: 10ml tl2 20:05 Drug: Pyridium 200 mg Route: PO; tl2 20:08 Follow up: Response: No adverse reaction; Medication administered at discharge. tl2 Intake: 19:30 IV: 10ml; Total: 10ml. tl2 20:08 IV: 1000ml; Total: 1010ml. tl2 Outcome: 19:44 Discharge ordered by . la1 20:05 Discharged to home ambulatory, with family. tl2 20:05 Condition: stable 20:05 Discharge instructions given to patient, family, Instructed on discharge instructions, follow up and referral plans. medication usage, Demonstrated understanding of instructions, follow-up care, medications, Prescriptions given X 2. 20:08 Patient left the ED. tl2 Addendum: 06/11/2019 07:55 Addendum: Culture Results: Positive urine culture. No further action required. Bacteria e b sensitive to prescribed antibiotic. Signatures: Dispatcher [employer] Stephen Garrett jb1 Dorothea Wright, RN RN ch Miladys Graf Lee, YEYO-C GRANTS DIRECTOR-[id number] Dixie Fajardo RN RN tl2 Ragini Youngblood Andrea RN RN ae4
--- NOTE | 2019-06-09 19:45 | EDPHYS ---
Physician Documentation [facility] Name: Belia Peter Age: 29 yrs Sex: Female : 1990 Arrival Date: 06/09/2019 Time: 15:45 Bed 17 Private MD: ED Physician Victor Manuel Boyce HPI: 06/09 17:03 This 29 yrs old Female presents to ER via Ambulatory with complaints of la1 Abdominal Pain, Flank Pain. 17:03 The patient presents with abdominal pain in the lower abdomen, right lower quadrant. la1 Onset: The symptoms/episode began/occurred acutely. The symptoms do not radiate. Associated signs and symptoms: Pertinent positives: nausea. The symptoms are described as sharp, waxing/waning. Modifying factors: The symptoms are alleviated by nothing, the symptoms are aggravated by touching the area. Severity of pain: At its worst the pain was moderate. The patient has not experienced similar symptoms in the past. 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 . - Social history:: Smoking status: Patient/guardian denies using tobacco, Patient/guardian denies using alcohol, street drugs. - Ebola Screening: : Patient negative for fever greater than or equal to 101.5 degrees Fahrenheit, and additional compatible Ebola Virus Disease symptoms Patient denies exposure to infectious person Patient denies travel to an Ebola-affected area in the 21 days before illness onset No symptoms or risks identified at this time. ROS: 17:04 Constitutional: Negative for fever, chills, and weight loss, Eyes: Negative for injury, la1 pain, redness, and discharge, ENT: Negative for injury, pain, and discharge, Neck: Negative for injury, pain, and swelling, Cardiovascular: Negative for chest pain, palpitations, and edema, Respiratory: Negative for shortness of breath, cough, wheezing, and pleuritic chest pain. 17:04 Back: Negative for injury and pain, : Negative for injury, bleeding, discharge, and swelling, MS/Extremity: Negative for injury and deformity. 17:04 Abdomen/GI: Positive for abdominal pain, Negative for diarrhea, constipation, abdominal distension, dysphagia, hematemesis, black/tarry stool, rectal pain, rectal bleeding, bowel incontinence. Exam: 17:04 Constitutional: This is a well developed, well nourished patient who is awake, alert, la1 and in no acute distress. Head/Face: Normocephalic, atraumatic. Eyes: Pupils equal round and reactive to light, extra-ocular motions intact.Periorbital areas with no swelling, redness, or edema. ENT: Mucous membranes moist. Neck: Trachea midline, no thyromegaly or masses palpated, and no cervical lymphadenopathy. Supple, full range of motion without nuchal rigidity, or vertebral point tenderness. No Meningismus. Chest/axilla: Normal chest wall appearance and motion. Nontender with no deformity. No lesions are appreciated. Cardiovascular: Regular rate and rhythm with a normal S1 and S2. No gallops, murmurs, or rubs. Normal PMI, no JVD. No pulse deficits. Respiratory: Lungs have equal breath sounds bilaterally, clear to auscultation No rales, rhonchi or wheezes noted. No increased work of breathing, no retractions or nasal flaring. 17:04 Abdomen/GI: Inspection: obese Bowel sounds: normal, in all quadrants, Palpation: soft, in all quadrants, moderate abdominal tenderness, in the suprapubic area, right lower quadrant and left lower quadrant, Indicators: McBurney's point is tender, Zamudio's sign is negative, Rovsing's sign is negative, Obturator sign is negative, Psoas sign is negative. 17:05 Back: CVA tenderness, is absent. la1 Vital Signs: 16:22 BP 133 / 91; Pulse 81; Resp 17; Temp 97.9; Pulse Ox 96% on R/A; Height 5 ft. 7 in. ch (170.18 cm); Pain 7/10; 17:35 BP 136 / 96; Pulse 72; Resp 19; Pulse Ox 100% on R/A; ae4 19:30 BP 126 / 72; Pulse 81; Resp 18; Pulse Ox 96% on R/A; Pain 6/10; tl2 20:05 BP 126 / 72; Pulse 73; Resp 18; Pulse Ox 97% on R/A; tl2 MDM: 17:33 Patient medically screened. la1 19:42 Data reviewed: vital signs, nurses notes, lab test result(s), radiologic studies, and la1 as a result, I will discharge patient. Data interpreted: Pulse oximetry: on room air is 96 %. Interpretation: normal. Counseling: I had a detailed discussion with the patient and/or guardian regarding: the historical points, exam findings, and any diagnostic results supporting the discharge/admit diagnosis, lab results, radiology results, the need for outpatient follow up, a family practitioner, to return to the emergency department if symptoms worsen or persist or if there are any questions or concerns that arise at home. Response to treatment: the patient's symptoms have markedly improved after treatment, and as a result, I will discharge patient. Special discussion: Based on the patient's Hx, exam, and Dx evaluation, there is no indication for emergent surgery or inpatient Tx. It is understood by the patient/guardian that if the Sx's persist or worsen they need to return immediately for re-evaluation. Based on the history and exam findings, there is no indication for further emergent testing or inpatient evaluation. I discussed with the patient/guardian the need to see the primary care provider for further evaluation of the symptoms. 06/09 16:31 Order name: Basic Metabolic Panel; Complete Time: 18:20 06/09 16:31 Order name: CBC with Diff; Complete Time: 17:33 06/09 16:31 Order name: Creatinine for Radiology; Complete Time: 17:33 06/09 16:31 Order name: Hepatic Function; Complete Time: 18:20 06/09 16:31 Order name: Lipase; Complete Time: 18:20 06/09 19:18 Order name: Urine Microscopic Only; Complete Time: 19:41 la06/09 16:54 Order name: CT Abd/Pelvis - IV Contrast Only; Complete Time: 18:39 06/09 19:20 Order name: Urine Dipstick--Ancillary (enter results); Complete Time: 19:41 ar5 06/09 19:31 Order name: Urine Culture EDMS 06/09 16:31 Order name: IV Saline Lock; Complete Time: 17:08 06/09 16:31 Order name: Labs collected and sent; Complete Time: 17:08 la1 06/09 16:31 Order name: Urine Dipstick-Ancillary (obtain specimen); Complete Time: 19:21 la1 Administered Medications: 17:15 Drug: Zofran 4 mg Route: IVP; Site: right antecubital; ae4 17:44 Follow up: Response: Nausea is decreased ae4 17:15 Drug: NS 0.9% 1000 ml Route: IV; Rate: 1000 ml; Site: right antecubital; ae4 20:08 Follow up: IV Status: Completed infusion; IV Intake: 1000ml tl2 17:19 Drug: morphine 4 mg Route: IVP; Site: right antecubital; ae4 17:40 Follow up: Response: Pain is unchanged, physician notified ae4 18:29 Follow up: Response: RASS: Restless (+1) ae4 17:40 Drug: TORadol - Ketorolac 15 mg Route: IVP; Site: right antecubital; ae4 18:19 Follow up: Response: Pain is unchanged, physician notified; no new orders received at ae4 this time. 18:30 Follow up: Response: RASS: Restless (+1) ae4 18:29 Drug: fentaNYL (PF) 50 mcg Route: IVP; Site: right antecubital; ae4 19:01 Follow up: Response: Pain is decreased; RASS: Alert and Calm (0) ae4 19:21 Drug: Wilber 10 mg-325 mg 1 tabs Route: PO; tl2 20:07 Follow up: Response: No adverse reaction; Pain is decreased; RASS: Alert and Calm (0) tl2 19:27 Drug: Rocephin 1 grams Route: IV; Rate: calculated rate; Site: right antecubital; tl2 19:30 Follow up: IV Status: Completed infusion; IV Intake: 10ml tl2 20:05 Drug: Pyridium 200 mg Route: PO; tl2 20:08 Follow up: Response: No adverse reaction; Medication administered at discharge. tl2 Disposition: 06/10 19:37 Co-signature as Attending Physician, Victor Manuel Boyce MD I agree with the assessment and kdr plan of care. Disposition: 06/09/19 19:44 Discharged to Home. Impression: Acute cystitis, Abdominal and pelvic pain. - Condition is Stable. - Discharge Instructions: Abdominal Pain, Adult, Urinary Tract Infection, Adult, Abdominal Pain, Adult, [id number]. - Prescriptions for Pyridium 200 mg Oral Tablet - take 1 tablet by ORAL route every 8 hours for 3 days; 9 tablet. Macrobid 100 mg Oral Capsule - take 1 capsule by ORAL route every 12 hours for 7 days; 14 capsule. - Medication Reconciliation Form, Thank You Letter, Antibiotic Education form. - Follow up: Private Physician; When: 2 - 3 days; Reason: Recheck today's complaints, Re-evaluation by your physician. - Problem is new. - Symptoms have improved. Signatures: Dispatcher [employer] EDMS Dorothea Wright, RN RN Victor Manuel Boyce MD MD [facility] Jae Cifuentes, SHOE REPAIRER-C SHOE REPAIRER-Cla1 Dixie Fajardo RN RN tl2 John Ludwig RN RN ae4 Corrections: (The following items were deleted from the chart) 06/09 19:22 16:31 Urine Test ordered. la1 tl2 20:08 19:44 06/09/2019 19:44 Discharged to Home. Impression: Acute cystitis; Abdominal and tl2 pelvic pain. Condition is Stable. Forms are Medication Reconciliation Form, Thank You Letter, Antibiotic Education, Prescription Opioid Use. Follow up: Private Physician; When: 2 - 3 days; Reason: Recheck today's complaints, Re-evaluation by your physician. Problem is new. Symptoms have improved. la1
[2019-06-09] MEDS ORDERED: PHENAZOPYRIDINE 100MG TAB PO ONE (19:50)
[2019-06-09 20:14] VITALS: TEMP 97.9
[2019-06-09 20:17] VITALS: BP 126/72
[2019-06-09 20:18] VITALS: O2SAT 97
== END 2019-06-09 20:08 | disposition home or self-care (01) ==
LOC: ER 15:45
DX: N30.00 Acute cystitis without hematuria (principal)
CPT/HCPCS: 36415; 74177; 80048; 80076; 81003; 81015; 83690; 85025; 87077; 87086; 87088; 87186; 96361; 96374; 96375; 99284; J0696; J2405; J3010; J7030; Q9967

== ENCOUNTER 2019-12-21 15:36 | Emergency (ER) | payer SELFPAY ==
[2019-12-21] MEDS ORDERED: KETOROLAC 30 MG/ML INJ ONE (19:32)
[2019-12-21] MEDS ORDERED: ONDANSETRON 4 MG/2 ML VIAL ONE (19:32)
[2019-12-21 20:00] LABS: Absolute Lymphocytes (CBC) 2.3 K/uL (0.7-4.9); Basophils % 0.6 % (0-1.3); Hematocrit 45.1 % (36.0-45.0); Lymphocytes % 26.9 % (15.3-44.8); MPV 9.5 fL (7.6-11.3); RBC Red Blood Cell Count 5.47 M/uL (3.86-4.86)
[2019-12-21] MEDS ORDERED: MORPHINE 2 MG/ML SYR ONE (20:20)
[2019-12-21 20:24] LABS: ALT/SGPT 34 U/L (12-78); AST/SGOT 24 U/L (15-37); Albumin 3.9 g/dL (3.4-5.0); Alkaline Phosphatase 83 U/L (45-117); BUN Blood Urea Nitrogen 10 mg/dL (7-18); Bicarbonate 26 mmol/L (21-32); Bilirubin Direct < 0.1 mg/dL (0-0.2); Bilirubin Total 0.3 mg/dL (0.2-1.0); Glucose Level 93 mg/dL (74-106); Lipase 75 U/L (73-393); Potassium 3.8 mmol/L (3.5-5.1); Protein, Total 8.3 g/dL (6.4-8.2); Sodium Level 139 mmol/L (136-145)
[2019-12-21 20:31] LABS: Urine Amorphous Sediment 2+ /HPF (NONE SEEN); Urine Bacteria <20 /HPF (<20); Urine Culture Reflex Order NOT NEEDED; Urine Mucus 2+ /HPF (NONE SEEN); Urine RBC <5 /HPF (NONE SEEN)
--- NOTE | 2019-12-21 21:02 | RAD REPORT ---
EXAM DESCRIPTION: CTAbdomen Pelvis W Contrast - 12/21/2019 8:55 pm CLINICAL HISTORY: Abdominal pain. abd pain COMPARISON: Abdomen Pelvis W Contrast dated 06/09/2019 TECHNIQUE: Biphasic CT imaging of the abdomen and pelvis was performed with 100 ml non-ionic IV cont rast. All CT scans are performed using dose optimization technique as appropriate and may include automated exposure control or mA/KV adjustment according to patient size. FINDINGS: The lung bases are clear.Cholecystectomy clips. The liver demonstrates diffuse fatty infiltration. The spleen, pancreas, adrenal glands and kidneys a re within normal limits. No bowel obstruction, free air, free fluid or abscess. The appendix is normal. No evidence of signi ficant lymphadenopathy. No suspicious bony findings. IMPRESSION: No acute intra-abdominal or pelvic finding.
[2019-12-21] MEDS ORDERED: MORPHINE 4 MG/ML SYR ONE (21:38)
[2019-12-21 22:00] LABS: Urine Blood NEGATIVE (NEG); Urine Glucose NEGATIVE (NEG); Urine Protein TRACE (NEG); Urine Specific Gravity 1.025 (1.005-1.030); Urine pH 7.5 (5.0-7.0)
[2019-12-21] MEDS ORDERED: CEFTRIAXONE/SWI 1gm 1 GM/10 ML SYR ONE (22:08)
[2019-12-21] MEDS ORDERED: AZITHROMYCIN 250 MG TAB ONE (22:08)
--- NOTE | 2019-12-21 23:03 | EDPHYS ---
Physician Documentation [facility] Name: Belia Peter Age: 29 yrs Sex: Female : 1990 Arrival Date: 12/21/2019 Time: 15:45 Bed Ultrasound Private MD: ED Physician HPI: 12/20 17:30 This 29 yrs old Female presents to ER via Ambulatory with complaints of cp Abdominal Pain. 17:30 The patient presents with abdominal pain in the left lower quadrant. Onset: The cp symptoms/episode began/occurred last night. The symptoms do not radiate. Associated signs and symptoms: Pertinent negatives: blood in stools, constipation, diarrhea, dysuria, fever, vaginal discharge, vaginal bleeding, pelvic pain. The symptoms are described as sharp. 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 - Social history:: Smoking status: Patient denies any tobacco usage or history of. ROS: 17:38 Abdomen/GI: Positive for abdominal pain, of the left lower quadrant, Negative for cp vomiting, diarrhea, constipation, black/tarry stool, rectal bleeding. 17:38 Eyes: Negative for injury, pain, redness, and discharge. cp 17:38 Constitutional: Negative for body aches, chills, fever. 17:38 Cardiovascular: Negative for chest pain. 17:38 Respiratory: Negative for cough, shortness of breath, wheezing. 17:38 : Negative for urinary symptoms, flank pain, vaginal bleeding, vaginal discharge. 17:38 Skin: Negative for rash. 17:38 All other systems are negative. Exam: 17:45 Constitutional: The patient appears in no acute distress, alert, awake, non-toxic, well cp developed, well nourished, obese. 17:45 Head/Face: Normocephalic, atraumatic. cp 17:45 Eyes: Periorbital structures: appear normal, Conjunctiva: normal, no exudate, no injection, Sclera: no appreciated abnormality, Lids and lashes: appear normal, bilaterally. 17:45 ENT: External ear(s): are unremarkable, Nose: is normal, Mouth: is normal, Posterior pharynx: is normal, airway is patent, no erythema, no exudate. 17:45 Chest/axilla: Inspection: normal, Palpation: is normal, no crepitus, no tenderness. 17:45 Cardiovascular: Rate: normal, Rhythm: regular. 17:45 Respiratory: the patient does not display signs of respiratory distress, Respirations: normal, no use of accessory muscles, no retractions, labored breathing, is not present, Breath sounds: are clear throughout, no decreased breath sounds. 17:45 Abdomen/GI: Inspection: obese Bowel sounds: active, all quadrants, Palpation: soft, in all quadrants, moderate abdominal tenderness, in the left lower quadrant, rebound tenderness, is not appreciated, voluntary guarding, is elicited in the left lower quadrant. 17:45 Back: pain, is absent, ROM is normal. 21:48 : Pelvic Exam: External exam: is normal, Speculum exam: no bleeding is noted, cp bimanual exam reveals left adnexal tenderness, no adnexal mass on right, no adnexal mass on left, discharge, white, the nurse was present for the exam, Sexual behavior: the patient is sexually active, and reports a single partner, method of control is hysterectomy. Vital Signs: 16:26 BP 131 / 70; Pulse 78; Resp 15 S; Temp 97.6(TE); Pulse Ox 99% on R/A; Weight 136.08 kg ca1 (R); Height 5 ft. 7 in. (170.18 cm) (R); Pain 8/10; 19:44 BP 113 / 74; Pulse 67; Resp 16; Pulse Ox 100% on R/A; Pain 8/10; lp1 21:26 BP 134 / 57; Pulse 67; Resp 16; Pulse Ox 100% on R/A; Pain 7/10; lp1 23:03 BP 118 / 66; Pulse 79; Resp 18; Pulse Ox 100% on R/A; wh 16:26 Body Mass Index 46.99 (136.08 kg, 170.18 cm) ca1 MDM: 17:24 Patient medically screened. cp 18:00 Differential diagnosis: bowel obstruction, diverticulitis, Endometriosis, Ovarian cp Torsion, Pelvic Inflammatory Disease, Pyelonephritis, Tubal Ovarian Abcess, Ureterolithiasis, urinary tract infection. 23:01 Data reviewed: vital signs, nurses notes, lab test result(s), radiologic studies, CT cp scan, ultrasound. 23:01 Counseling: I had a detailed discussion with the patient and/or guardian regarding: the cp historical points, exam findings, and any diagnostic results supporting the discharge/admit diagnosis, lab results, radiology results, the need for outpatient follow up, a family practitioner, to return to the emergency department if symptoms worsen or persist or if there are any questions or concerns that arise at home. 12/20 17:25 Order name: Basic Metabolic Panel 12/20 17:25 Order name: CBC with Diff 12/20 17:25 Order name: Hepatic Function 12/20 17:25 Order name: Lipase 12/20 17:25 Order name: Urine Microscopic Only 12/20 19:27 Order name: Urine Dipstick--Ancillary (enter results) [facility] 12/20 20:07 Order name: CBC with Automated Diff; Complete Time: 21:01 EDVA 12/20 21:01 Interpretation: Normal except: RBC 5.47; HCT 45.1. 12/20 20:24 Order name: Basic Metabolic Panel; Complete Time: 21:01 EDVA 12/20 21:01 Interpretation: Normal except: GFR 81. 12/20 20:24 Order name: Liver (Hepatic) Function; Complete Time: 21:01 EDVA 12/20 21:02 Interpretation: Normal except: TP 8.3; GLOB 4.4; A/G 0.9. 12/20 20:24 Order name: Lipase; Complete Time: 21:01 EDVA 12/20 20:32 Order name: Urine Microscopic Only; Complete Time: 21:01 EDVA 12/20 21:02 Interpretation: Normal except: SQEPI 5-10; AMORPH 2+. 12/20 21:37 Order name: GC (GONORR/CHLAMYDIA) Probe 12/20 21:37 Order name: Wet Prep 12/20 22:00 Order name: Urine Dipstick-Ancillary; Complete Time: 22:12 EDVA 12/20 17:25 Order name: IV Saline Lock; Complete Time: 19:43 12/20 17:25 Order name: Labs collected and sent; Complete Time: 19:43 12/20 17:25 Order name: Urine Dipstick-Ancillary (obtain specimen); Complete Time: 19:43 cp 12/20 17:25 Order name: CT Abd/Pelvis - IV Contrast Only cp 12/20 21:04 Order name: CT; Complete Time: 21:28 EDMS 12/20 21:31 Order name: US Pelvis Complete cp 12/20 21:37 Order name: Pelvic Exam Setup; Complete Time: 21:39 cp 12/20 22:40 Order name: Wet Prep; Complete Time: 23:01 EDMS Administered Medications: 19:42 Drug: TORadol - Ketorolac 15 mg Route: IVP; Site: right antecubital; lp1 20:15 Follow up: Response: No change in condition lp1 19:43 Drug: Zofran (Ondansetron) 4 mg Route: IVP; Site: right antecubital; lp1 20:19 Follow up: Response: No change in condition lp1 20:15 Drug: morphine 2 mg {Note: Verbal order per PA. Alexandra} Route: IVP; Site: right lp1 antecubital; 21:27 Follow up: Response: No change in condition lp1 21:34 Drug: morphine 4 mg {Note: RASS 0.} Route: IVP; Site: left antecubital; lp1 23:10 Follow up: Response: Pain is decreased lp1 22:16 Drug: Rocephin - (cefTRIAXone) 1 grams Route: IVPB; Infused Over: 30 mins; Site: left lp1 antecubital; 23:14 Follow up: Response: No adverse reaction; IV Status: Completed infusion; IV Intake: [id number] 22:16 Drug: Zithromax 1 grams Route: PO; lp1 23:14 Follow up: Response: No adverse reaction lp1 23:12 Drug: DiFLUcan 150 mg Route: PO; 23:35 Follow up: Response: No adverse reaction lp1 Disposition: 12/21 15:33 Co-signature as Attending Physician, Victor Manuel Boyce MD I agree with the assessment and kdr plan of care. Disposition: 12/21/19 23:02 Discharged to Home. Impression: Abdominal and pelvic pain - left, Candidiasis - vaginal. - Condition is Stable. - Discharge Instructions: Abdominal Pain, Adult, Pelvic Pain, Female, Vaginal Yeast Infection, Adult. - Prescriptions for Diflucan 150 mg Oral Tablet - take 1 tablet by ORAL route one time for 1 day take afternoon of 12-23-2019; 1 tablet. Ibuprofen 800 mg Oral Tablet - take 1 tablet by ORAL route every 8 hours As needed take with food; 30 tablet. Doxycycline Hyclate 100 mg Oral Tablet - take 1 tablet by ORAL route every 12 hours; 20 tablet. Metronidazole 500 mg Oral Tablet - take 1 tablet by ORAL route every 8 hours; 30 tablet. Tramadol 50 mg Oral Tablet - take 1 tablet by ORAL route every 8 hours as needed; 12 tablet. - Medication Reconciliation Form, Thank You Letter, Antibiotic Education, Prescription Opioid Use form. - Follow up: Private Physician; When: 1 - 2 days; Reason: Recheck today's complaints. - Problem is new. - Symptoms have improved. Signatures: Dispatcher [employer] EDMS Victor Manuel Boyce MD MD kdr Pena, Laura, RN RN lp1 Moris Nicholson PA PA Joceline العلي Cheryl, RN RN ca1 Corrections: (The following items were deleted from the chart) 12/20 23:04 23:02 12/21/2019 23:02 Discharged to Home. Impression: Abdominal and pelvic pain - cp left. Condition is Stable. Forms are Medication Reconciliation Form, Thank You Letter, Antibiotic Education, Prescription Opioid Use. Follow up: Private Physician; When: 1 - 2 days; Reason: Recheck today's complaints. Problem is new. Symptoms have improved. cp 23:34 23:04 12/21/2019 23:02 Discharged to Home. Impression: Abdominal and pelvic pain - lp1 left; Candidiasis - vaginal. Condition is Stable. Discharge Instructions: Abdominal Pain, Adult, Pelvic Pain, Female, Vaginal Yeast Infection, Adult. Prescriptions for Diflucan 150 mg Oral Tablet - take 1 tablet by ORAL route one time for 1 day take afternoon of 12-23-2019; 1 tablet, Ibuprofen 800 mg Oral Tablet - take 1 tablet by ORAL route every 8 hours As needed take with food; 30 tablet, Doxycycline Hyclate 100 mg Oral Tablet - take 1 tablet by ORAL route every 12 hours; 20 tablet, Metronidazole 500 mg Oral Tablet - take 1 tablet by ORAL route every 8 hours; 30 tablet, Tramadol 50 mg Oral Tablet - take 1 tablet by ORAL route every 8 hours as needed; 12 tablet. and Forms are Medication Reconciliation Form, Thank You Letter, Antibiotic Education, Prescription Opioid Use. Follow up: Private Physician; When: 1 - 2 days; Reason: Recheck today's complaints. Problem is new. Symptoms have improved. cp 23:49 23:34 12/21/2019 23:02 Discharged to Home. Impression: Abdominal and pelvic pain - lp1 left; Candidiasis - vaginal. Condition is Stable. Discharge Instructions: Abdominal Pain, Adult, Pelvic Pain, Female, Vaginal Yeast Infection, Adult. Prescriptions for Diflucan 150 mg Oral Tablet - take 1 tablet by ORAL route one time for 1 day take afternoon of 12-23-2019; 1 tablet, Ibuprofen 800 mg Oral Tablet - take 1 tablet by ORAL route every 8 hours As needed take with food; 30 tablet, Doxycycline Hyclate 100 mg Oral Tablet - take 1 tablet by ORAL route every 12 hours; 20 tablet, Metronidazole 500 mg Oral Tablet - take 1 tablet by ORAL route every 8 hours; 30 tablet, Tramadol 50 mg Oral Tablet - take 1 tablet by ORAL route every 8 hours as needed; 12 tablet. and Forms are Medication Reconciliation Form, Thank You Letter, Antibiotic Education, Prescription Opioid Use. Follow up: Private Physician; When: 1 - 2 days; Reason: Recheck today's complaints. Problem is new. Symptoms have improved. lp1
--- NOTE | 2019-12-21 23:03 | ER ---
Nurse's Notes [facility] Name: Belia Peter Age: 29 yrs Sex: Female : 1990 Arrival Date: 12/21/2019 Time: 15:45 Bed Ultrasound Private MD: Diagnosis: Abdominal and pelvic pain-left;Candidiasis-vaginal Presentation: 12/20 16:26 Chief complaint: Patient states: Severe sharp pain on LLQ since last night and did not ca1 go away. Reports nausea. Denies vomiting and diarrhea. Coronavirus screen: Proceed with normal triage. Patient denies a cough. Patient denies shortness of breath or difficulty breathing. Patient denies measured and/or subjective temperature greater than 100.4F prior to today's visit. Patient denies travel on a cruise ship or to a country the [facility] currently lists as an affected area. Patient denies contact with known and/or suspected case of COVID-19. Ebola Screen: Patient negative for fever greater than or equal to 101.5 degrees Fahrenheit, and additional compatible Ebola Virus Disease symptoms Patient denies exposure to infectious person. Patient denies travel to an Ebola-affected area in the 21 days before illness onset. No symptoms or risks identified at this time. Initial Sepsis Screen: Does the patient meet any 2 criteria? No. Patient's initial sepsis screen is negative. Does the patient have a suspected source of infection? No. Patient's initial sepsis screen is negative. Risk Assessment: Do you want to hurt yourself or someone else? Patient reports no desire to harm self or others. Onset of symptoms was December 21, 2019. 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 - Social history:: Smoking status: Patient denies any tobacco usage or history of. Screenin:44 Abuse screen: Denies threats or abuse. Denies injuries from another. Nutritional lp1 screening: No deficits noted. Tuberculosis screening: No symptoms or risk factors identified. Fall Risk None identified. Assessment: 19:43 General: Appears uncomfortable, Behavior is appropriate for age. Pain: Complains of lp1 pain in left lower quadrant Pain currently is 8 out of 10 on a pain scale. Quality of pain is described as sharp. Neuro: Level of Consciousness is awake, alert, obeys commands, Oriented to person, place, time, situation. Cardiovascular: Patient's skin is warm and dry. Respiratory: Respiratory effort is even, unlabored. GI: Abdomen is non-distended, Bowel sounds present X 4 quads. Abdomen is tender to palpation in left lower quadrant. : No signs and/or symptoms were reported regarding the genitourinary system. EENT: No signs and/or symptoms were reported regarding the EENT system. Derm: Skin is pink, warm \T\ dry. Musculoskeletal: No deficits noted. 20:57 Reassessment: Patient returned, notified by CT of IV infiltration to R AC; IV initiated lp1 to L AC by program technician; cold compress in place to R AC. 21:26 Reassessment: Provider notified of continued pain to LLQ of abdomen at this time; lp1 Verbal order for Morphine 4 mg IV now. 23:34 Reassessment: Patient demonstrates understanding of DC instructions; waiting for ride lp1 home; given sliding scale form of PCP's for follow-up. Vital Signs: 16:26 BP 131 / 70; Pulse 78; Resp 15 S; Temp 97.6(TE); Pulse Ox 99% on R/A; Weight 136.08 kg ca1 (R); Height 5 ft. 7 in. (170.18 cm) (R); Pain 8/10; 19:44 BP 113 / 74; Pulse 67; Resp 16; Pulse Ox 100% on R/A; Pain 8/10; lp1 21:26 BP 134 / 57; Pulse 67; Resp 16; Pulse Ox 100% on R/A; Pain 7/10; lp1 23:03 BP 118 / 66; Pulse 79; Resp 18; Pulse Ox 100% on R/A; wh 16:26 Body Mass Index 46.99 (136.08 kg, 170.18 cm) ca1 ED Course: 15:45 Patient arrived in ED. fj1 16:28 Triage completed. ca1 16:28 Arm band placed on right wrist. ca1 17:19 Moris Nicholson PA is PHCP. cp 17:19 Victor Manuel Boyce MD is Attending Physician. cp 17:43 Adarsh Hughes, RN is Primary Nurse. em 19:35 Inserted saline lock: 20 gauge in right antecubital area, using aseptic technique. lp1 Blood collected. 19:44 Patient has correct armband on for positive identification. lp1 21:48 Assist provider with pelvic exam: Set up pelvic tray. Performed by Moris ARCE lp1 Specimens sent to lab. 23:28 IV discontinued, No redness/swelling at site. Pressure dressing applied, 22g IV to L AC lp1 DC'd. 23:34 Attending Physician role handed off by Victor Manuel Boyce MD lp1 23:34 Primary Nurse role handed off by Adarsh Hughes, PETAR lp1 23:34 Kenzie Bowens, RN is Primary Nurse. lp1 23:45 Pelvis Complete In Process Unspecified. EDMS Administered Medications: 19:42 Drug: TORadol - Ketorolac 15 mg Route: IVP; Site: right antecubital; lp1 20:15 Follow up: Response: No change in condition lp1 19:43 Drug: Zofran (Ondansetron) 4 mg Route: IVP; Site: right antecubital; lp1 20:19 Follow up: Response: No change in condition lp1 20:15 Drug: morphine 2 mg {Note: Verbal order per YAZMIN Morris.} Route: IVP; Site: right lp1 antecubital; 21:27 Follow up: Response: No change in condition lp1 21:34 Drug: morphine 4 mg {Note: RASS 0.} Route: IVP; Site: left antecubital; lp1 23:10 Follow up: Response: Pain is decreased lp1 22:16 Drug: Rocephin - (cefTRIAXone) 1 grams Route: IVPB; Infused Over: 30 mins; Site: left lp1 antecubital; 23:14 Follow up: Response: No adverse reaction; IV Status: Completed infusion; IV Intake: [id number] 22:16 Drug: Zithromax 1 grams Route: PO; lp1 23:14 Follow up: Response: No adverse reaction lp1 23:12 Drug: DiFLUcan 150 mg Route: PO; 23:35 Follow up: Response: No adverse reaction lp1 Intake: 23:14 IV: 10ml; Total: 10ml. lp1 Outcome: 23:02 Discharge ordered by . cp 23:28 Discharged to home ambulatory. lp1 23:28 Condition: good 23:28 Discharge instructions given to patient, Instructed on discharge instructions, follow up and referral plans. medication usage, Demonstrated understanding of instructions, follow-up care, medications, Prescriptions given X 5 23:34 Patient left the ED. lp1 23:49 Patient left the ED. lp1 Signatures: Dispatcher [employer] Adarsh Alberts RN RN Kenzie Joshi RN RN lp1 Moris Nicholson PA PA cp Habalo, Winsy wh Acob, Cheryl RN RN [facility] Alo Phan fj1 Corrections: (The following items were deleted from the chart) 21:27 21:26 Reassessment: Provider notified of continued pain to LLQ of abdomen at this time; lp1 Verbal order for Morphine 2 mg IV now lp1 21:49 21:27 No provider procedures requiring assistance completed. lp1 lp1
[2019-12-21] MEDS ORDERED: FLUCONAZOLE 100 MG TAB ONE (23:15)
[2019-12-22 01:02] VITALS: TEMP 97.6
[2019-12-22 01:03] VITALS: O2SAT 100
[2019-12-22 01:06] VITALS: BP 118/66
--- NOTE | 2019-12-22 18:44 | RAD REPORT ---
EXAM DESCRIPTION: Pelvis Complete CLINICAL HISTORY: Left lower abdomen pain COMPARISON: None. TECHNIQUE: US PELVIS 12/21/2019 9:31 PM CDT FINDINGS: Post hysterectomy images show no abnormal masses. Uterus and ovaries are not seen. IMPRESSION: No significant post hysterectomy abnormalities. Electronically signed by: Raymundo Mckeon MD 12/21/2019 11:42 PM CDT Due to temporary technical issues with the PACS/Fluency reporting system, reports are being signed by the in house radiologist without review as a courtesy to ensure prompt reporting. The interpreting r adiologist is fully responsible for the content of the report.
[2019-12-27 16:35] LABS: C.trachomatis RNA,TMA Not Detected (Not Detected)
== END 2019-12-21 23:49 | disposition home or self-care (01) ==
LOC: ER 15:36
DX: B37.3 Candidiasis of vulva and vagina (principal)
CPT/HCPCS: 36415; 74177; 76856; 80048; 80076; 81003; 81015; 83690; 85025; 87210; 87490; 87590; 99284; J0696; J2270; J2405; Q9967

== ENCOUNTER 2020-04-02 15:02 | Emergency (ER) | payer SELFPAY ==
--- OUTSIDE RECORDS SUMMARY | 2020-04-02 15:04 | XMS REPORT | Continuity of Care Document ---
:1990 Author Organization [facility] t Address [address] [place] [address] Dr. Meeks [address] [place] [id number] Care Team Providers Name Role Phone Unavailable Unavailable Unavailable Problems This patient has no known problems. Allergies, Adverse Reactions, Alerts This patient has no known allergies or adverse reactions. Medications This patient has no known medications. Procedures This patient has no known procedures. Results This patient has no known results.
--- NOTE | 2020-04-02 15:18 | EDPHYS ---
Physician Documentation [facility] Name: Belia Peter Age: 30 yrs Sex: Female : 1990 Arrival Date: 04/02/2020 Time: 15:03 Bed 24 Private MD: ED Physician Victor Manuel Boyce HPI: 04/02 19:22 This 30 yrs old Female presents to ER via Wheelchair with complaints of kdr Abdominal Pain, Back Pain, Nausea. 19:22 The patient presents with pain that is acute, and decreased range of motion, and an kdr injury, and tenderness. The symptoms are located in the low back, right flank, right mid back and right low back. Onset: The symptoms/episode began/occurred acutely, suddenly, just prior to arrival, today. Location: right flank. Associated signs and symptoms: The patient has no apparent associated signs or symptoms. The problem was sustained When she stood up, she had acute onset of pain to the right flank. Modifying factors: The patient symptoms are alleviated by remaining still, the patient symptoms are aggravated by any movement, bending, movement, standing, supine position, walking. Severity of symptoms: At their worst the symptoms were moderate, severe, in the emergency department the symptoms are unchanged. The patient has not experienced similar symptoms in the past. The patient has not recently seen a physician. 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 - Social history:: Smoking status: Patient denies any tobacco usage or history of. ROS: 19:22 Constitutional: Negative for fever, chills, and weight loss, Eyes: Negative for injury, kdr pain, redness, and discharge, ENT: Negative for injury, pain, and discharge, Neck: Negative for injury, pain, and swelling, Cardiovascular: Negative for chest pain, palpitations, and edema, Respiratory: Negative for shortness of breath, cough, wheezing, and pleuritic chest pain, : Negative for injury, bleeding, discharge, and swelling, MS/Extremity: Negative for injury and deformity, Skin: Negative for injury, rash, and discoloration, Neuro: Negative for headache, weakness, numbness, tingling, and seizure activity. Psych: Negative for depression, anxiety, suicide ideation, homicidal ideation, and hallucinations, Allergy/Immunology: Negative for hives, rash, and allergies, Endocrine: Negative for neck swelling, polydipsia, polyuria, polyphagia, and marked weight changes. 19:22 Abdomen/GI: Positive for abdominal pain, nausea, Negative for vomiting, diarrhea, constipation, abdominal cramps, abdominal distension, anorexia, black/tarry stool, rectal pain, rectal bleeding, bowel incontinence. Exam: 19:22 Constitutional: This is a well developed, well nourished patient who is awake, alert, kdr and in no acute distress. Head/Face: Normocephalic, atraumatic. Eyes: Pupils equal round and reactive to light, extra-ocular motions intact. Lids and lashes normal. Conjunctiva and sclera are non-icteric and not injected. Cornea within normal limits. Periorbital areas with no swelling, redness, or edema. Neck: Trachea midline, no thyromegaly or masses palpated, and no cervical lymphadenopathy. Supple, full range of motion without nuchal rigidity, or vertebral point tenderness. No Meningismus. Chest/axilla: Normal chest wall appearance and motion. Nontender with no deformity. No lesions are appreciated. Cardiovascular: Regular rate and rhythm with a normal S1 and S2. No gallops, murmurs, or rubs. Normal PMI, no JVD. No pulse deficits. Respiratory: Lungs have equal breath sounds bilaterally, clear to auscultation and percussion. No rales, rhonchi or wheezes noted. No increased work of breathing, no retractions or nasal flaring. Skin: Warm, dry with normal turgor. Normal color with no rashes, no lesions, and no evidence of cellulitis. MS/ Extremity: Pulses equal, no cyanosis. Neurovascular intact. Full, normal range of motion. Neuro: Awake and alert, GCS 15, oriented to person, place, time, and situation. Cranial nerves II-XII grossly intact. Motor strength 5/5 in all extremities. Sensory grossly intact. Cerebellar exam normal. Normal gait. Psych: Awake, alert, with orientation to person, place and time. Behavior, mood, and affect are within normal limits. 19:22 Abdomen/GI: Inspection: abdomen appears normal, Bowel sounds: normal, active, Palpation: soft, mild abdominal tenderness, in the posterior aspect of right lateral abdomen, anterior aspect of right lateral abdomen, right upper quadrant and right lower quadrant, mass, is not appreciated, rebound tenderness, is not appreciated. Vital Signs: 15:10 BP 131 / 84; Pulse 79; Resp 17; Temp 98.0; Pulse Ox 100% ; Weight 136.08 kg; Height 5 ll1 ft. 7 in. (170.18 cm); Pain 9/10; 17:22 BP 126 / 78; Pulse 66; Resp 17 S; Pulse Ox 100% on R/A; jd3 18:20 BP 126 / 56; Pulse 61; Resp 17 S; Pulse Ox 99% on R/A; jd3 15:10 Body Mass Index 46.99 (136.08 kg, 170.18 cm) ll1 MDM: 15:17 Patient medically screened. kdr 19:22 Data reviewed: vital signs, nurses notes, lab test result(s), radiologic studies. kdr Counseling: I had a detailed discussion with the patient and/or guardian regarding: the historical points, exam findings, and any diagnostic results supporting the discharge/admit diagnosis, lab results, radiology results, the need for outpatient follow up. 04/02 15:14 Order name: Basic Metabolic Panel; Complete Time: 16:29 kdr 04/02 15:14 Order name: CBC with Diff; Complete Time: 16:29 kdr 04/02 15:14 Order name: Hepatic Function; Complete Time: 16:29 kdr 04/02 15:14 Order name: Lipase; Complete Time: 16:29 kdr 04/02 18:31 Order name: Urine Dipstick--Ancillary (enter results) hb 04/02 15:40 Order name: CT Stone Protocol; Complete Time: 16:53 kdr 04/02 15:14 Order name: IV Saline Lock; Complete Time: 15:34 kdr 04/02 15:14 Order name: Labs collected and sent; Complete Time: 15:34 kdr Administered Medications: 15:51 Drug: TORadol - Ketorolac 15 mg Route: IVP; Site: left antecubital; jd3 16:50 Follow up: Response: No adverse reaction jd3 15:51 Drug: Zofran (Ondansetron) 4 mg Route: IVP; Site: left antecubital; jd3 16:50 Follow up: Response: No adverse reaction jd3 15:51 Drug: Pepcid 20 mg Route: IVP; Site: left antecubital; jd3 16:50 Follow up: Response: No adverse reaction jd3 16:26 Drug: morphine 4 mg Route: IVP; Site: left antecubital; jd3 17:26 Follow up: Response: No adverse reaction; RASS: Alert and Calm (0) jd3 16:26 Drug: Zofran (Ondansetron) 4 mg Route: IVP; Site: left antecubital; jd3 17:26 Follow up: Response: No adverse reaction jd3 17:20 Drug: Demerol 25 mg Route: IVP; Site: left antecubital; jd3 18:20 Follow up: Response: No adverse reaction; RASS: Alert and Calm (0) jd3 17:20 Drug: Robaxin 1 grams Route: IVPB; Infused Over: 1 hrs; Site: left antecubital; jd3 18:20 Follow up: Response: No adverse reaction; IV Status: Completed infusion; IV Intake: jd3 100ml 18:55 Drug: morphine 4 mg Route: IVP; Site: left antecubital; hb 18:56 Follow up: Response: Medication administered at discharge. hb 18:55 Drug: Bolivar 10 mg-325 mg 1 tabs Route: PO; hb 18:55 Follow up: Response: Medication administered at discharge. hb Disposition: 04/02/20 18:39 Discharged to Home. Impression: Musculoskeletal Pain, Flank Pain, Myofascial Pain. - Condition is Stable. - Discharge Instructions: Musculoskeletal Pain, Flank Pain, [id number], Heat Therapy, [id number]. - Prescriptions for ketorolac 10 mg Oral tablet - take 1 tablet by ORAL route every 4-6 hours not to exceed 40 mg in 24hrs; 16 tablet. Robaxin 500 mg Oral Tablet - take 2 tablet by ORAL route every 6 hours As needed; 40 tablet. Tylenol- Codeine #3 300-30 mg Oral Tablet - take 2 tablets by ORAL route every 6 hours As needed; 16 tablet. - Medication Reconciliation Form, Thank You Letter, Prescription Opioid Use form. - Follow up: Private Physician; When: 2 - 3 days; Reason: If symptoms return, Further diagnostic work-up, Recheck today's complaints, Continuance of care, Re-evaluation by your physician. - Problem is new. - Symptoms have improved. Signatures: Dispatcher [employer] EDMS Victor Manuel oByce MD MD kdr Waters, Shelly, [employer] SALES BEAUTY ADVISOR-C [employer] SALES BEAUTY ADVISOR-Csnw Alexandra Moore, RN RN Prasanna Pang, RN RN jd3 Braeden Motta RN RN ll1 Corrections: (The following items were deleted from the chart) 15:38 15:17 04/02/2020 15:17 Discharged to Home. Impression: Vomiting; Mild hyperemesis kdr gravidarum. Condition is Stable. Forms are Medication Reconciliation Form, Thank You Letter, Antibiotic Education, Prescription Opioid Use. Follow up: Kwame Cardenas; When: 1 - 2 days; Reason: If symptoms return, Further diagnostic work-up, Recheck today's complaints, Continuance of care, Re-evaluation by your physician. Problem is an acute exacerbation. Symptoms have improved. kdr 18:56 18:39 04/02/2020 18:39 Discharged to Home. Impression: Musculoskeletal Pain, Flank hb Pain, Myofascial Pain. Condition is Stable. Forms are Medication Reconciliation Form, Thank You Letter, Antibiotic Education, Prescription Opioid Use. Follow up: Private Physician; When: 2 - 3 days; Reason: If symptoms return, Further diagnostic work-up, Recheck today's complaints, Continuance of care, Re-evaluation by your physician. Problem is new. Symptoms have improved. kdr
--- NOTE | 2020-04-02 15:18 | ER ---
Nurse's Notes [facility] Name: Belia Peter Age: 30 yrs Sex: Female : 1990 Arrival Date: 04/02/2020 Time: 15:03 Bed 24 Private MD: Diagnosis: Musculoskeletal Pain, Flank Pain, Myofascial Pain Presentation: 04/02 15:10 Coronavirus screen: Client denies travel out of the [place] in the last 14 days. At this ll1 time, the client does not indicate any symptoms associated with coronavirus-19. Ebola Screen: Patient denies travel to an Ebola-affected area in the 21 days before illness onset. Initial Sepsis Screen: Does the patient meet any 2 criteria? No. Patient's initial sepsis screen is negative. Does the patient have a suspected source of infection? Yes: Acute abdominal pain. Risk Assessment: Do you want to hurt yourself or someone else? Patient reports no desire to harm self or others. Onset of symptoms was April 02, 2020. 15:10 Method Of Arrival: Wheelchair ll1 15:10 Acuity: PRIMO 3 ll1 15:12 Chief complaint: Patient states: Sudden onset right flank pain for 2 hours with nausea. ll1 No known fever. 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 - Social history:: Smoking status: Patient denies any tobacco usage or history of. Screenin:14 Abuse screen: Denies threats or abuse. Nutritional screening: No deficits noted. jd3 Tuberculosis screening: No symptoms or risk factors identified. Fall Risk Ambulatory Aid- None/Bed Rest/Nurse Assist (0 pts). Gait- Normal/Bed Rest/Wheelchair (0 pts) Mental Status- Oriented to own ability (0 pts). Total Hunt Fall Scale indicates No Risk (0-24 pts). Assessment: 15:51 General: Appears in no apparent distress. uncomfortable, Behavior is calm, cooperative, jd3 appropriate for age. Pain: Complains of pain in right flank Quality of pain is described as aching. Neuro: Level of Consciousness is awake, alert, obeys commands, Oriented to person, place, time, situation. Cardiovascular: Denies chest pain, Capillary refill < 3 seconds Patient's skin is warm and dry. Respiratory: Airway is patent Respiratory effort is even, unlabored, Respiratory pattern is regular, symmetrical, Denies cough, shortness of breath. GI: Abdomen is round non-distended, Abd is soft X 4 quads Abdomen is tender to palpation X 4 quads. Reports nausea. : No signs and/or symptoms were reported regarding the genitourinary system. EENT: No signs and/or symptoms were reported regarding the EENT system. Derm: Skin is intact, Skin is dry, Skin is normal, Skin temperature is warm. Musculoskeletal: Circulation, motion, and sensation intact. Range of motion: intact in all extremities. 16:30 Reassessment: Patient appears in no apparent distress at this time. No changes from jd3 previously documented assessment. Patient and/or family updated on plan of care and expected duration. Pain level reassessed. Patient is alert, oriented x 3, equal unlabored respirations, skin warm/dry/pink. 17:22 Reassessment: Patient appears in no apparent distress at this time. No changes from jd3 previously documented assessment. Patient and/or family updated on plan of care and expected duration. Pain level reassessed. Patient is alert, oriented x 3, equal unlabored respirations, skin warm/dry/pink. 18:20 Reassessment: Patient appears in no apparent distress at this time. Patient and/or jd3 family updated on plan of care and expected duration. Pain level reassessed. Patient is alert, oriented x 3, equal unlabored respirations, skin warm/dry/pink. Vital Signs: 15:10 BP 131 / 84; Pulse 79; Resp 17; Temp 98.0; Pulse Ox 100% ; Weight 136.08 kg; Height 5 ll1 ft. 7 in. (170.18 cm); Pain 9/10; 17:22 BP 126 / 78; Pulse 66; Resp 17 S; Pulse Ox 100% on R/A; jd3 18:20 BP 126 / 56; Pulse 61; Resp 17 S; Pulse Ox 99% on R/A; jd3 15:10 Body Mass Index 46.99 (136.08 kg, 170.18 cm) ll1 ED Course: 15:03 Patient arrived in ED. ag5 15:10 Arm band placed on Patient placed in an exam room, on a stretcher. ll1 15:12 Triage completed. ll1 15:14 Victor Manuel Boyce MD is Attending Physician. kdr 15:14 Patient has correct armband on for positive identification. Bed in low position. Call jd3 light in reach. Side rails up X 1. Pulse ox on. NIBP on. 15:15 Kwame Cardenas MD is Referral Physician. kdr 15:17 Prasanna Pang RN is Primary Nurse. jd3 15:34 Inserted saline lock: 20 gauge in left antecubital area, using aseptic technique. Blood jd3 collected. 16:14 CT Stone Protocol In Process Unspecified. EDMS 18:56 No provider procedures requiring assistance completed. IV discontinued, intact, hb bleeding controlled, No redness/swelling at site. Administered Medications: 15:51 Drug: TORadol - Ketorolac 15 mg Route: IVP; Site: left antecubital; jd3 16:50 Follow up: Response: No adverse reaction jd3 15:51 Drug: Zofran (Ondansetron) 4 mg Route: IVP; Site: left antecubital; jd3 16:50 Follow up: Response: No adverse reaction jd3 15:51 Drug: Pepcid 20 mg Route: IVP; Site: left antecubital; jd3 16:50 Follow up: Response: No adverse reaction jd3 16:26 Drug: morphine 4 mg Route: IVP; Site: left antecubital; jd3 17:26 Follow up: Response: No adverse reaction; RASS: Alert and Calm (0) jd3 16:26 Drug: Zofran (Ondansetron) 4 mg Route: IVP; Site: left antecubital; jd3 17:26 Follow up: Response: No adverse reaction jd3 17:20 Drug: Demerol 25 mg Route: IVP; Site: left antecubital; jd3 18:20 Follow up: Response: No adverse reaction; RASS: Alert and Calm (0) jd3 17:20 Drug: Robaxin 1 grams Route: IVPB; Infused Over: 1 hrs; Site: left antecubital; jd3 18:20 Follow up: Response: No adverse reaction; IV Status: Completed infusion; IV Intake: jd3 100ml 18:55 Drug: morphine 4 mg Route: IVP; Site: left antecubital; hb 18:56 Follow up: Response: Medication administered at discharge. hb 18:55 Drug: [place] 10 mg-325 mg 1 tabs Route: PO; hb 18:55 Follow up: Response: Medication administered at discharge. hb Intake: 18:20 IV: 100ml; Total: 100ml. jd3 Outcome: 15:17 Discharge ordered by . kdr 18:39 Discharge ordered by . kdr 18:56 Discharged to home ambulatory. hb 18:56 Condition: stable 18:56 Discharge instructions given to patient, Instructed on discharge instructions, follow up and referral plans. medication usage, Demonstrated understanding of instructions, follow-up care, medications, Prescriptions given X 3. 18:56 Patient left the ED. hb Signatures: Dispatcher [employer] EDMS Victor Manuel Boyce MD MD kdr Alexandra Moore RN RN Prasanna Pang RN RN Juventino Sutherland Braeden Olguin RN RN ll1
[2020-04-02 15:45] LABS: Absolute Lymphocytes (CBC) 2.1 K/uL (0.7-4.9); Basophils % 0.6 % (0-1.3); Hematocrit 39.7 % (36.0-45.0); Lymphocytes % 25.4 % (15.3-44.8); MPV 9.5 fL (7.6-11.3); RBC Red Blood Cell Count 4.84 M/uL (3.86-4.86)
[2020-04-02] MEDS ORDERED: ONDANSETRON 4 MG/2 ML VIAL ONE ×2 (15:58→16:34)
[2020-04-02] MEDS ORDERED: FAMOTIDINE 20 MG/2 ML VIAL IV ONE (15:58)
[2020-04-02] MEDS ORDERED: KETOROLAC 30 MG/ML INJ ONE (15:58)
[2020-04-02 16:09] LABS: ALT/SGPT 27 U/L (12-78); AST/SGOT 24 U/L (15-37); Albumin 3.5 g/dL (3.4-5.0); Alkaline Phosphatase 86 U/L (45-117); BUN Blood Urea Nitrogen 13 mg/dL (7-18); Bicarbonate 30 mmol/L (21-32); Bilirubin Direct < 0.1 mg/dL (0-0.2); Bilirubin Total 0.3 mg/dL (0.2-1.0); Glucose Level 86 mg/dL (74-106); Lipase 81 U/L (73-393); Potassium 3.8 mmol/L (3.5-5.1); Sodium Level 138 mmol/L (136-145)
--- NOTE | 2020-04-02 16:27 | RAD REPORT ---
EXAM DESCRIPTION: CT - Stone Protocol - 04/02/2020 4:14 pm CLINICAL HISTORY: Abdominal pain. Right flank pain COMPARISON: December 2019 TECHNIQUE: Computed axial tomography of the abdomen pelvis was obtained without oral or IV contrast. Lack of IV and oral contrast limits evaluation of solid organs, bowel, and vessels. Coronal reformat kelsie images were obtained and reviewed. All CT scans are performed using dose optimization technique as appropriate and may include automated exposure control or mA/KV adjustment according to patient size. FINDINGS: A renal calculus is not seen. An ureteral calculus is not noted. A bladder calculus is not present. Fatty liver. The liver appears enlarged. Hepatic and splenic granulomata are present. The pancreas and adrenals appear grossly normal There is no evidence of diverticulitis. The appendix appears normal . Small umbilical hernia. Hysterectomy Cholecystectomy IMPRESSION: Negative for a genitourinary calculus
[2020-04-02] MEDS ORDERED: MORPHINE 4 MG/ML SYR ONE ×2 (16:34→19:00)
[2020-04-02] MEDS ORDERED: MEPERIDINE HCL 50 MG/ML ONE (17:22)
[2020-04-02] MEDS ORDERED: METHOCARBAMOL 1,000 MG/10 ML VIAL IV ONE (17:22)
[2020-04-02] MEDS ORDERED: NA CHLORIDE 0.9% 100 ML IV ONE (17:24)
[2020-04-02 18:45] LABS: Urine Blood NEGATIVE (NEG); Urine Glucose NEGATIVE (NEG); Urine Protein NEGATIVE (NEG)
[2020-04-02] MEDS ORDERED: HYDROCODONE/APAP 10/325 TAB ONE (19:00)
[2020-04-02 20:03] VITALS: TEMP 98
[2020-04-02 20:21] VITALS: BP 126/56; O2SAT 99
== END 2020-04-02 18:56 | disposition home or self-care (01) ==
LOC: ER 15:02
DX: M79.18 Myalgia, other site (principal)
CPT/HCPCS: 36415; 74176; 76377; 80048; 80076; 81003; 83690; 85025; 96365; 96375; 99284; J2175; J2405; J2800

== ENCOUNTER 2020-07-03 12:39 | Emergency (ER) | payer SELFPAY ==
--- OUTSIDE RECORDS SUMMARY | 2020-07-03 12:41 | XMS REPORT | Continuity of Care Document ---
:1990 Author Organization [facility] t Address [address] [place] [address] Dr. M[address]ks [address] [place] [id number] Care Team Providers Name Role Phone Unavailable Unavailable Unavailable Problems This patient has no known problems. Allergies, Adverse Reactions, Alerts This patient has no known allergies or adverse reactions. Medications This patient has no known medications. Procedures This patient has no known procedures. Results This patient has no known results.
[2020-07-03] MEDS ORDERED: dexAMETHasone 10 MG/ML VIAL ONE (13:54)
[2020-07-03] MEDS ORDERED: DIPHENHYDRAMINE 50 MG/ML VIAL ONE (13:54)
[2020-07-03] MEDS ORDERED: METOCLOPRAMIDE 10 MG/2mL INJ ONE (13:54)
[2020-07-03] MEDS ORDERED: NA CHLORIDE 0.9% 1,000 ML ONE (13:55)
[2020-07-03] MEDS ORDERED: KETOROLAC 30 MG/ML INJ ONE (13:55)
--- NOTE | 2020-07-03 14:20 | RAD REPORT ---
EXAM DESCRIPTION: CT - CTHCSPWOC - 07/03/2020 2:06 pm CLINICAL HISTORY: Trauma, head and neck injury. headache and neck pain COMPARISON: No comparisons TECHNIQUE: Axial 5 mm thick images of the head were obtained. Axial 2 mm thick images of the cervical spine were obtained with sagittal and coronal reconstruction images generated and reviewed. All CT scans are performed using dose optimization technique as appropriate and may include automated exposure control or mA/KV adjustment according to patient size. FINDINGS: CT HEAD WITHOUT CONTRAST: No acute hemorrhage, hydrocephalus or extra-axial collection is identified.No areas of brain edema or midline shift. The paranasal sinuses and mastoids are clear.The calvarium is intact. CT CERVICAL SPINE WITHOUT CONTRAST: No fracture or subluxation.No prevertebral soft tissues swelling is identified. Mildly prominent lymp h nodes are seen throughout the neck bilaterally, nonspecific. IMPRESSION: No acute intracranial or cervical spine findings.
--- NOTE | 2020-07-03 15:04 | ER ---
Nurse's Notes [facility] Name: Belia Peter Age: 30 yrs Sex: Female : 1990 Arrival Date: 07/03/2020 Time: 12:43 Bed 16 Private MD: Diagnosis: Headache;Cervicalgia Presentation: 07/03 12:50 Chief complaint: Patient states: [place] for 10 days. Tenderness to back of head and neck ll1 pain began today. No fever. Coronavirus screen: Client denies travel out of the [place] in the last 14 days. headache, nausea, Client presents with at least one sign or symptom that may indicate coronavirus-19. Standard/surgical mask placed on the client. Ebola Screen: Patient denies travel to an Ebola-affected area in the 21 days before illness onset. Initial Sepsis Screen: Does the patient meet any 2 criteria? No. Patient's initial sepsis screen is negative. Does the patient have a suspected source of infection? Yes: S/S of meningitis or endocarditis. Risk Assessment: Do you want to hurt yourself or someone else? Patient reports no desire to harm self or others. Onset of symptoms was June 23, 2020. 12:50 Method Of Arrival: Ambulatory ll1 12:50 Acuity: PRIMO 3 ll1 Historical: - Allergies: 12:50 No Known Drug Allergies; ll1 - PMHx: 12:50 chronic back pain; ll1 - PSHx: 12:50 back surgery; Hysterectomy; Cholecystectomy; ll1 - Immunization history:: Flu vaccine is not up to date. - Social history:: Smoking status: Patient denies any tobacco usage or history of. Screenin:04 Abuse screen: Denies threats or abuse. Nutritional screening: No deficits noted. vg1 Tuberculosis screening: No symptoms or risk factors identified. Fall Risk None identified. Assessment: 13:40 General: Appears in no apparent distress. uncomfortable, Behavior is calm, cooperative. vg1 Pain: Complains of pain in Head Pain currently is 9 out of 10 on a pain scale. Neuro: Level of Consciousness is awake, alert, obeys commands, Oriented to person, place, time, situation. Cardiovascular: Patient's skin is warm and dry. Respiratory: Airway is patent Respiratory effort is even, unlabored. GI: Reports nausea. : No signs and/or symptoms were reported regarding the genitourinary system. EENT: No signs and/or symptoms were reported regarding the EENT system. Derm: Skin is intact, is healthy with good turgor. Musculoskeletal: Circulation, motion, and sensation intact. 15:00 Reassessment: Patient appears in no apparent distress at this time. Patient and/or vg1 family updated on plan of care and expected duration. Pain level reassessed. Patient is alert, oriented x 3, equal unlabored respirations, skin warm/dry/pink. Vital Signs: 12:50 BP 137 / 92; Pulse 77; Resp 18; Temp 97.5; Pulse Ox 100% ; Weight 138.35 kg; Height 5 ll1 ft. 7 in. (170.18 cm); Pain 7/10; 13:45 BP 111 / 51 Supine; Pulse 70; Resp 16; Pulse Ox 100% on R/A; vg1 15:00 BP 117 / 77; Pulse 67; Resp 16; Pulse Ox 100% on R/A; vg1 12:50 Body Mass Index 47.77 (138.35 kg, 170.18 cm) ll1 ED Course: 12:43 Patient arrived in ED. mr 12:49 Arm band placed on Patient placed in an exam room, on a stretcher. ll1 12:51 Triage completed. ll1 13:17 Parris Daniels, PETAR is Primary Nurse. vg1 13:21 Moris Nicholson PA is PHCP. cp 13:21 Afshin Razo MD is Attending Physician. cp 13:50 Inserted saline lock: 20 gauge in left antecubital area, using aseptic technique. vg1 14:[address] via wheelchair. vg1 14:04 Patient has correct armband on for positive identification. Bed in low position. Call vg1 light in reach. Side rails up X 1. 14:05 CT Head C Spine In Process Unspecified. EDMS 14:11 Patient moved back from CT. vg1 15:40 No provider procedures requiring assistance completed. IV discontinued, intact, vg1 bleeding controlled, No redness/swelling at site. Pressure dressing applied. Administered Medications: 14:01 Drug: Reglan 10 mg Route: IVP; Site: left antecubital; vg1 15:38 Follow up: Response: No adverse reaction; Nausea is decreased vg1 14:01 Drug: Decadron - Dexamethasone 10 mg Route: IVP; Site: left antecubital; vg1 15:38 Follow up: Response: No adverse reaction vg1 14:01 Drug: Benadryl 25 mg Route: IVP; Site: left antecubital; vg1 15:38 Follow up: Response: No adverse reaction vg1 14:02 Drug: NS 0.9% 1000 ml Route: IV; Rate: 1 bolus; Site: left antecubital; vg1 15:38 Follow up: IV Status: Completed infusion; IV Intake: 800ml vg1 14:02 Drug: TORadol - Ketorolac 15 mg Route: IVP; Site: left antecubital; vg1 15:38 Follow up: Response: No adverse reaction; Pain is decreased vg1 Intake: 15:38 IV: 800ml; Total: 800ml. vg1 Outcome: 15:04 Discharge ordered by . alicia 15:40 Discharged to home ambulatory. vg1 15:40 Condition: stable 15:40 Discharge instructions given to patient, Instructed on discharge instructions, follow up and referral plans. medication usage, Demonstrated understanding of instructions, follow-up care, medications, Prescriptions given X 2. 15:42 Patient left the ED. vg1 Signatures: Dispatcher [employer] Bonnie Crum Corey, PA PA cp Garcia, Victoria, RN RN vg1 Braeden Motta RN RN ll1
--- NOTE | 2020-07-03 15:04 | EDPHYS ---
Physician Documentation [facility] Name: Belia Peter Age: 30 yrs Sex: Female : 1990 Arrival Date: 07/03/2020 Time: 12:43 Bed 16 Private MD: ED Physician Afshin Razo HPI: 07/03 13:25 This 30 yrs old Female presents to ER via Ambulatory with complaints of cp Headache. 13:25 The patient complains of pain to the left occipital area, left base of the skull, right cp occipital area and right base of the skull. 13:25 The patient describes the headache as aching, constant. Onset: The symptoms/episode cp began/occurred 1 week(s) ago. Associated signs and symptoms: Pertinent positives: neck stiffness, Pertinent negatives: fever, weakness. Severity of symptoms: in the emergency department the pain is unchanged, despite home interventions. Historical: - Allergies: 12:50 No Known Drug Allergies; ll1 - PMHx: 12:50 chronic back pain; ll1 - PSHx: 12:50 back surgery; Hysterectomy; Cholecystectomy; ll1 - Immunization history:: Flu vaccine is not up to date. - Social history:: Smoking status: Patient denies any tobacco usage or history of. ROS: 13:30 Constitutional: Negative for body aches, chills, fever, poor PO intake. cp 13:30 Neck: Positive for pain with movement, pain at rest, stiffness, tenderness. cp 13:30 Neuro: Positive for headache, Negative for altered mental status, dizziness, numbness, weakness. Exam: 13:35 Constitutional: The patient appears in no acute distress, alert, awake, non-toxic, well cp developed, well nourished, obese. 13:35 Head/Face: Normocephalic, atraumatic. cp 13:35 Eyes: Periorbital structures: appear normal, Conjunctiva: normal, no exudate, no injection, Sclera: no appreciated abnormality, Lids and lashes: appear normal, bilaterally. 13:35 ENT: External ear(s): are unremarkable, Nose: is normal, Mouth: Lips: moist, Oral mucosa: pink and intact, moist, Posterior pharynx: Airway: no evidence of obstruction, patent, erythema, is not appreciated, exudate, is not appreciated. 13:35 Neck: ROM/movement: pain, that is moderate, with flexion, limited range of motion, is not appreciated, Meningeal signs: are not present, nuchal rigidity, is not appreciated, Lymph nodes: no appreciated lymphadenopathy. 13:35 Chest/axilla: Inspection: normal, Palpation: is normal, no crepitus, no tenderness. 13:35 Cardiovascular: Rate: normal, Rhythm: regular. 13:35 Respiratory: the patient does not display signs of respiratory distress, Respirations: normal, no use of accessory muscles, no retractions, labored breathing, is not present, Breath sounds: are clear throughout, no decreased breath sounds, no stridor, no wheezing. 13:35 Abdomen/GI: Exam negative for discomfort, distension, guarding, Inspection: abdomen appears normal. 13:35 Back: pain, is absent, ROM is normal. 13:35 Neuro: Orientation: to person, place \T\ time. Mentation: is normal, Cerebellar function: is grossly normal, Motor: moves all fours, strength is normal, Sensation: is normal. Vital Signs: 12:50 BP 137 / 92; Pulse 77; Resp 18; Temp 97.5; Pulse Ox 100% ; Weight 138.35 kg; Height 5 ll1 ft. 7 in. (170.18 cm); Pain 7/10; 13:45 BP 111 / 51 Supine; Pulse 70; Resp 16; Pulse Ox 100% on R/A; vg1 15:00 BP 117 / 77; Pulse 67; Resp 16; Pulse Ox 100% on R/A; vg1 12:50 Body Mass Index 47.77 (138.35 kg, 170.18 cm) ll1 MDM: 13:22 Patient medically screened. cp 14:00 Differential diagnosis: cluster headache, migraine, tension headache. cp 15:02 Data reviewed: vital signs, nurses notes, radiologic studies, CT scan. cp 15:02 Counseling: I had a detailed discussion with the patient and/or guardian regarding: the historical points, exam findings, and any diagnostic results supporting the discharge/admit diagnosis, radiology results, to return to the emergency department if symptoms worsen or persist or if there are any questions or concerns that arise at home. Response to treatment: the patient's symptoms have markedly improved after treatment, and as a result, I will discharge patient. 07/03 13:51 Order name: CT Head C Spine; Complete Time: 14:26 07/03 14:26 Interpretation: Reviewed report. 07/03 13:29 Order name: IV; Complete Time: 14:02 cp Administered Medications: 14:01 Drug: Reglan 10 mg Route: IVP; Site: left antecubital; vg1 15:38 Follow up: Response: No adverse reaction; Nausea is decreased vg1 14:01 Drug: Decadron - Dexamethasone 10 mg Route: IVP; Site: left antecubital; vg1 15:38 Follow up: Response: No adverse reaction vg1 14:01 Drug: Benadryl 25 mg Route: IVP; Site: left antecubital; vg1 15:38 Follow up: Response: No adverse reaction vg1 14:02 Drug: NS 0.9% 1000 ml Route: IV; Rate: 1 bolus; Site: left antecubital; vg1 15:38 Follow up: IV Status: Completed infusion; IV Intake: 800ml vg1 14:02 Drug: TORadol - Ketorolac 15 mg Route: IVP; Site: left antecubital; vg1 15:38 Follow up: Response: No adverse reaction; Pain is decreased vg1 Disposition: 15:15 Chart complete. Disposition: 07/03/20 15:04 Discharged to Home. Impression: Headache, Cervicalgia. - Condition is Stable. - Discharge Instructions: General Headache Without Cause. - Prescriptions for Cyclobenzaprine 10 mg Oral Tablet - take 1 tablet by ORAL route every 8 hours As needed; 15 tablet. Diclofenac Sodium 75 mg Oral Tablet, Delayed Release (E.C.) - take 1 tablet by ORAL route 2 times per day; 20 tablet. - Medication Reconciliation Form, Thank You Letter, Antibiotic Education, Prescription Opioid Use form. - Follow up: Private Physician; When: 1 - 2 days; Reason: Recheck today's complaints. - Problem is new. - Symptoms have improved. Addendum: 07/06/2020 10:02 Co-signature as Attending Physician, Afshin Razo MD. r n Signatures: Dispatcher [employer] EDAfshin Larson MD MD rn Page, Corey, PA PA cp Garcia, Victoria RN RN vg1 Braeden Motta RN RN ll1 Corrections: (The following items were deleted from the chart) 07/03 15:42 15:04 07/03/2020 15:04 Discharged to Home. Impression: Headache; Cervicalgia. Condition vg1 is Stable. Forms are Medication Reconciliation Form, Thank You Letter, Antibiotic Education, Prescription Opioid Use. Follow up: Private Physician; When: 1 - 2 days; Reason: Recheck today's complaints. Problem is new. Symptoms have improved. cp
[2020-07-03 15:53] VITALS: TEMP 97.5; O2SAT 100
[2020-07-03 15:56] VITALS: BP 117/77
== END 2020-07-03 15:42 | disposition home or self-care (01) ==
LOC: ER 12:39
DX: M54.2 Cervicalgia (principal)
CPT/HCPCS: 70450; 72125; 96361; 96374; 96375; 99284; J1100; J1200; J2765; J7030

== ENCOUNTER 2021-10-14 22:13 | Emergency (ER) | payer SELFPAY ==
--- OUTSIDE RECORDS SUMMARY | 2021-10-14 22:16 | XMS REPORT | Continuity of Care Document ---
:1990 Author Organization [facility] t Address [address] [place] [address] Dr. M[address]ks [address] [place] [id number] Care Team Providers Name Role Phone Unavailable Unavailable Unavailable Problems This patient has no known problems. Allergies, Adverse Reactions, Alerts This patient has no known allergies or adverse reactions. Medications This patient has no known medications. Procedures This patient has no known procedures. Results This patient has no known results.
[2021-10-15] MEDS ORDERED: NA CHLORIDE 0.9% 1,000 ML ONE (01:47)
[2021-10-15] MEDS ORDERED: ONDANSETRON 4 MG/2 ML VIAL ONE (01:47)
[2021-10-15 01:56] LABS: Absolute Lymphocytes (CBC) 2.3 K/uL (0.7-4.9)
[2021-10-15 02:07] LABS: Albumin 3.9 g/dL (3.4-5.0); Bilirubin Total 0.4 mg/dL (0.2-1.0); Potassium 3.7 mmol/L (3.5-5.1)
--- NOTE | 2021-10-15 02:36 | ER ---
Nurse's Notes [facility] Name: Belia Peter Age: 31 yrs Sex: Female : 1990 Arrival Date: 10/14/2021 Time: 22:16 Bed 4 Private MD: Diagnosis: Weakness Presentation: 10/14 22:23 Chief complaint: Patient states: Pt reporting generalized weakness. Unable to bathe ld1 herself or get in truck alone. Denies N/V/D. Coronavirus screen: At this time, the client does not indicate any symptoms associated with coronavirus-19. Ebola Screen: No symptoms or risks identified at this time. Initial Sepsis Screen: Does the patient meet any 2 criteria? No. Patient's initial sepsis screen is negative. Does the patient have a suspected source of infection? No. Patient's initial sepsis screen is negative. Risk Assessment: Do you want to hurt yourself or someone else? Patient reports no desire to harm self or others. Onset of symptoms was October 14, 2021. 22:23 Method Of Arrival: Wheelchair ld1 22:23 Acuity: PRIMO 3 ld1 Triage Assessment: 22:23 General: Appears in no apparent distress. comfortable, Behavior is calm, cooperative, ld1 appropriate for age. Pain: Denies pain. EENT: No signs and/or symptoms were reported regarding the EENT system. Neuro: Reports weakness. Cardiovascular: Capillary refill < 3 seconds Patient's skin is warm and dry. Respiratory: Airway is patent Respiratory effort is even, unlabored. GI: Abdomen is round non-distended. : No signs and/or symptoms were reported regarding the genitourinary system. Derm: No signs and/or symptoms reported regarding the dermatologic system. Musculoskeletal: No signs and/or symptoms reported regarding the musculoskeletal system. 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 - Social history:: Smoking status: Patient denies any tobacco usage or history of. Patient/guardian denies using alcohol. Screenin/04 01:17 Abuse screen: Denies threats or abuse. Denies injuries from another. Nutritional ld1 screening: No deficits noted. Tuberculosis screening: No symptoms or risk factors identified. Fall Risk None identified. Assessment: 01:17 Reassessment: see triage assessment. ld1 02:24 Reassessment: Patient appears in no apparent distress at this time. No changes from ld1 previously documented assessment. Patient and/or family updated on plan of care and expected duration. Pain level reassessed. Patient is alert, oriented x 3, equal unlabored respirations, skin warm/dry/pink. 03:51 Reassessment: Patient appears in no apparent distress at this time. No changes from ld1 previously documented assessment. Patient and/or family updated on plan of care and expected duration. Pain level reassessed. Patient is alert, oriented x 3, equal unlabored respirations, skin warm/dry/pink. Patient states feeling better. Patient states symptoms have improved. Vital Signs: 10/14 22:23 BP 146 / 91; Pulse 69; Resp 18; Temp 98.8(TE); Pulse Ox 100% on R/A; Weight 122.47 kg; ld1 Height 5 ft. 7 in. (170.18 cm); Pain 0/10; 10/15 02:25 BP 138 / 86; Pulse 64; Resp 18 S; Pulse Ox 100% on R/A; ld1 03:51 BP 142 / 88; Pulse 74; Resp 18; Pulse Ox 100% on R/A; ld1 10/14 22:23 Body Mass Index 42.29 (122.47 kg, 170.18 cm) ld1 ED Course: 10/14 22:16 Patient arrived in ED. kz 22:23 Arm band placed on right wrist. ld1 22:25 Triage completed. ld1 10/15 01:17 Allison Burns, PETAR is Primary Nurse. ld1 01:17 Patient has correct armband on for positive identification. Placed in gown. Bed in low ld1 position. Call light in reach. Side rails up X2. groundwater monitoring technician on. Pulse ox on. NIBP on. Door closed. Noise minimized. Warm blanket given. 01:17 No provider procedures requiring assistance completed. ld1 01:18 Moris Faustin MD is Attending Physician. [facility] 01:38 Inserted saline lock: 20 gauge in left antecubital area, using aseptic technique. Blood mw2 collected. 01:54 CBC with Diff Sent. ld1 01:54 CMP Sent. ld1 01:54 Lipase Sent. ld1 03:52 IV discontinued, intact, bleeding controlled, No redness/swelling at site. Pressure ld1 dressing applied. Administered Medications: 01:46 Drug: Zofran (Ondansetron) 4 mg Route: IVP; Site: left antecubital; ld1 01:46 Follow up: Response: No adverse reaction ld1 01:47 Drug: NS 0.9% 1000 ml Route: IV; Rate: 1 bolus; Site: left antecubital; ld1 03:51 Follow up: Response: No adverse reaction; IV Status: Completed infusion; IV Intake: ld1 1000ml Intake: 03:51 IV: 1000ml; Total: 1000ml. ld1 Outcome: 02:35 Discharge ordered by . [facility] 03:52 Discharged to home ambulatory. ld1 03:52 Condition: stable 03:52 Discharge instructions given to patient, Instructed on discharge instructions, Demonstrated understanding of instructions. 03:53 Patient left the ED. ld1 Signatures: Moris Faustin MD MD cha Westbrook, MyKena [email or web address] Allison Burns RN RN [email or web address] Zoë Paez Corrections: (The following items were deleted from the chart) 10/14 22:24 22:23 PSHx: None; ld1 ld1
--- NOTE | 2021-10-15 02:36 | EDPHYS ---
Physician Documentation [facility] Name: Belia Peter Age: 31 yrs Sex: Female : 1990 Arrival Date: 10/14/2021 Time: 22:16 Bed 4 Private MD: ED Physician Moris Faustin HPI: 10/15 02:32 This 31 yrs old Female presents to ER via Wheelchair with complaints of eloina General Weakness. 02:32 weakness, chills. Onset: The symptoms/episode began/occurred 1 day(s) ago. Severity of eloina symptoms: At their worst the symptoms were mild in the emergency department the symptoms have improved mildly. The patient has experienced a previous episode. 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 - Social history:: Smoking status: Patient denies any tobacco usage or history of. Patient/guardian denies using alcohol. ROS: 10/15 02:33 Constitutional: Negative for fever, chills, and weight loss, Eyes: Negative for injury, eloina pain, redness, and discharge, ENT: Negative for injury, pain, and discharge, Neck: Negative for injury, pain, and swelling, Cardiovascular: Negative for chest pain, palpitations, and edema, Respiratory: Negative for shortness of breath, cough, wheezing, and pleuritic chest pain, Abdomen/GI: Negative for abdominal pain, nausea, vomiting, diarrhea, and constipation, Back: Negative for injury and pain, : Negative for injury, bleeding, discharge, and swelling, MS/Extremity: Negative for injury and deformity, Skin: Negative for injury, rash, and discoloration, Neuro: Negative for headache, weakness, numbness, tingling, and seizure, Psych: Negative for depression, anxiety, suicide ideation, homicidal ideation, and hallucinations, Allergy/Immunology: Negative for hives, rash, and allergies, Endocrine: Negative for neck swelling, polydipsia, polyuria, polyphagia, and marked weight changes, Hematologic/Lymphatic: Negative for swollen nodes, abnormal bleeding, and unusual bruising. Exam: 02:33 Constitutional: This is a well developed, well nourished patient who is awake, alert, eloina and in no acute distress. Head/Face: Normocephalic, atraumatic. Eyes: Pupils equal round and reactive to light, extra-ocular motions intact. Lids and lashes normal. Conjunctiva and sclera are non-icteric and not injected. Cornea within normal limits. Periorbital areas with no swelling, redness, or edema. ENT: Nares patent. No nasal discharge, no septal abnormalities noted. Tympanic membranes are normal and external auditory canals are clear. Oropharynx with no redness, swelling, or masses, exudates, or evidence of obstruction, uvula midline. Mucous membranes moist. Neck: Trachea midline, no thyromegaly or masses palpated, and no cervical lymphadenopathy. Supple, full range of motion without nuchal rigidity, or vertebral point tenderness. No Meningismus. Chest/axilla: Normal chest wall appearance and motion. Nontender with no deformity. No lesions are appreciated. Cardiovascular: Regular rate and rhythm with a normal S1 and S2. No gallops, murmurs, or rubs. Normal PMI, no JVD. No pulse deficits. Respiratory: Lungs have equal breath sounds bilaterally, clear to auscultation and percussion. No rales, rhonchi or wheezes noted. No increased work of breathing, no retractions or nasal flaring. Abdomen/GI: Soft, non-tender, with normal bowel sounds. No distension or tympany. No guarding or rebound. No evidence of tenderness throughout. Back: No spinal tenderness. No costovertebral tenderness. Full range of motion. Skin: Warm, dry with normal turgor. Normal color with no rashes, no lesions, and no evidence of cellulitis. MS/ Extremity: Pulses equal, no cyanosis. Neurovascular intact. Full, normal range of motion. Neuro: Awake and alert, GCS 15, oriented to person, place, time, and situation. Cranial nerves II-XII grossly intact. Motor strength 5/5 in all extremities. Sensory grossly intact. Cerebellar exam normal. Normal gait. Psych: Awake, alert, with orientation to person, place and time. Behavior, mood, and affect are within normal limits. 02:33 Musculoskeletal/extremity: DVT Exam: No signs of deep vein thrombosis. no pain, no swelling, no tenderness, negative Homans' sign noted on exam, no appreciated bluish discoloration, no erythema, no increased warmth. Vital Signs: 10/14 22:23 BP 146 / 91; Pulse 69; Resp 18; Temp 98.8(TE); Pulse Ox 100% on R/A; Weight 122.47 kg; ld1 Height 5 ft. 7 in. (170.18 cm); Pain 0/10; 10/15 02:25 BP 138 / 86; Pulse 64; Resp 18 S; Pulse Ox 100% on R/A; ld1 03:51 BP 142 / 88; Pulse 74; Resp 18; Pulse Ox 100% on R/A; ld1 10/14 22:23 Body Mass Index 42.29 (122.47 kg, 170.18 cm) ld1 MDM: 01:18 Patient medically screened. [facility] 02:34 Data reviewed: vital signs, nurses notes, lab test result(s), CBC, electrolytes, [facility] hepatic panel. Data interpreted: orthopaedic nurse: rate is 64 beats/min, rhythm is regular, Pulse oximetry: on room air is 100 %. Counseling: I had a detailed discussion with the patient and/or guardian regarding: the historical points, exam findings, and any diagnostic results supporting the discharge/admit diagnosis, lab results, the need for outpatient follow up, for definitive care, a family practitioner. 10/15 01:25 Order name: CBC with Diff [facility] 10/15 01:25 Order name: CMP; Complete Time: 02:10 [facility] 10/15 01:25 Order name: Lipase; Complete Time: 02:10 [facility] 10/15 01:25 Order name: Labs collected and sent; Complete Time: 01:44 [facility] 10/15 01:25 Order name: Urine Test (obtain specimen); Complete Time: 01:45 [facility] Administered Medications: 01:46 Drug: Zofran (Ondansetron) 4 mg Route: IVP; Site: left antecubital; ld1 01:46 Follow up: Response: No adverse reaction ld1 01:47 Drug: NS 0.9% 1000 ml Route: IV; Rate: 1 bolus; Site: left antecubital; ld1 03:51 Follow up: Response: No adverse reaction; IV Status: Completed infusion; IV Intake: ld1 1000ml Disposition Summary: 10/15/21 02:35 Discharge Ordered Location: Home eloina Problem: new eloina Symptoms: have improved eloina Condition: Stable eloina Diagnosis - Weakness eloina Followup: eloina - With: Private Physician - When: 2 - 3 days - Reason: Recheck today's complaints, Continuance of care, Re-evaluation by your physician Discharge Instructions: - Discharge Summary Sheet eloina - Weakness eloina - Weakness, [id number] eloina Forms: - Medication Reconciliation Form eloina - Thank You Letter eloina - Antibiotic Education eloina - Prescription Opioid Use [facility] Signatures: Dispatcher [employer] EDMoris Lutz MD MD cha Dibbern, Lauren, RN RN ld1 Shonna Munguia PA PA sb3 Corrections: (The following items were deleted from the chart) 10/14 22:24 22:23 PSHx: None; ld1 ld1
[2021-10-15 02:50] LABS: Hematocrit 40.8 % (36.0-45.0); Lymphocytes % 27.3 % (15.3-44.8); MPV 9.1 fL (7.6-11.3); RBC Red Blood Cell Count 4.99 M/uL (3.86-4.86)
[2021-10-15 05:19] VITALS: TEMP 98.8; O2SAT 100
[2021-10-15 05:23] VITALS: BP 142/88
== END 2021-10-15 03:53 | disposition home or self-care (01) ==
LOC: ER 22:13
DX: R53.1 Weakness (principal)
CPT/HCPCS: 36415; 80053; 83690; 85025; 96361; 96374; 99284; J2405; J7030

== ENCOUNTER 2022-06-15 07:58 | Emergency (ER) | payer SELFPAY ==
--- OUTSIDE RECORDS SUMMARY | 2022-06-15 08:00 | XMS REPORT | Continuity of Care Document ---
:1990 Author Organization [facility] t Address [address] [place] [address] Dr. Meeks [address] [place] [id number] Care Team Providers Name Role Phone Unavailable Unavailable Unavailable Problems This patient has no known problems. Allergies, Adverse Reactions, Alerts This patient has no known allergies or adverse reactions. Medications This patient has no known medications. Procedures This patient has no known procedures. Results This patient has no known results.
[2022-06-15 09:01] LABS: Hematocrit 41.3 % (36.0-45.0); Lymphocytes % 26.2 % (15.3-44.8); MCV 81.9 fL (80-100); MPV 8.3 fL (7.6-11.3); RBC Red Blood Cell Count 5.04 M/uL (3.86-4.86)
[2022-06-15 09:18] LABS: Albumin 3.4 g/dL (3.4-5.0); Bilirubin Total 0.4 mg/dL (0.2-1.0); Potassium 3.8 mmol/L (3.5-5.1); Protein, Total 7.6 g/dL (6.4-8.2)
[2022-06-15] MEDS ORDERED: MORPHINE 4 MG/ML SYR ONE (09:36)
[2022-06-15] MEDS ORDERED: NA CHLORIDE 0.9% 1,000 ML ONE (09:36)
[2022-06-15] MEDS ORDERED: FAMOTIDINE 20 MG/2 ML VIAL IV ONE (09:36)
[2022-06-15] MEDS ORDERED: ONDANSETRON 4 MG/2 ML VIAL ONE (09:36)
--- NOTE | 2022-06-15 09:46 | RAD REPORT ---
EXAM DESCRIPTION: CT - Abdomen Pelvis W Contrast - 06/15/2022 9:33 am CLINICAL HISTORY: Epigastric Pain, nausea, hx of hysterectomy COMPARISON: Abdomen Pelvis W Contrast dated 12/21/2019 TECHNIQUE: Biphasic, helical CT imaging of the abdomen and pelvis was performed following 100 ml non -ionic IV contrast. Oral contrast: No. All CT scans are performed using dose optimization technique as appropriate and may include automated exposure control or mA/KV adjustment according to patient size. FINDINGS: No suspicious findings in the lung bases. The liver, spleen, and pancreas show no suspicious findings. Gallbladder is absent. No abnormal bilia ry tree dilatation. Calcifications abutting the capsule of the left lobe liver unchanged from prior i maging. Symmetric renal function is seen with no hydronephrosis or suspicious renal mass. No pyelonephritis o r acute parenchymal process. No bladder abnormalities. No adrenal abnormalities. Uterus is absent. Jovanny th ovaries are seen and normal for age. No dilated bowel loops or bowel wall thickening. Appendix is identified and normal. No free air, free fluid or inflammatory stranding. No hernia, mass or bulky lymphadenopathy. No suspicious bony findings. There is significant respiratory motion artifact decreasing detail of the upper and mid abdomen struc tures. IMPRESSION: Contrast enhanced CT abdomen and pelvis showing no acute or emergent finding. Patient is status post cholecystectomy. No abnormal biliary tree dilatation.
[2022-06-15] MEDS ORDERED: MAGNES/ALUMIN/SIMET 30ML UCUP ONE (10:01)
[2022-06-15] MEDS ORDERED: LIDOCAINE VISCOUS 2% SOLN 15 ML UDC ONE (10:01)
[2022-06-15] MEDS ORDERED: KETOROLAC 30 MG/ML INJ ONE (11:28)
[2022-06-15] MEDS ORDERED: KETAMINE HCL 500 MG/5 ML VIAL ONE (12:09)
--- NOTE | 2022-06-15 12:53 | ER ---
Nurse's Notes [facility] Name: Belia Peter Age: 32 yrs Sex: Female : 1990 Arrival Date: 06/15/2022 Time: 07:59 Bed 11 Private MD: Diagnosis: Epigastric abdominal pain Presentation: 06/15 08:30 Chief complaint: Patient states: upper abd pain that radiates around to the back that ss began last night. Coronavirus screen: Client denies travel out of the [place] in the last 14 days. Ebola Screen: Patient denies exposure to infectious person. Patient denies travel to an Ebola-affected area in the 21 days before illness onset. Initial Sepsis Screen: Does the patient meet any 2 criteria? No. Patient's initial sepsis screen is negative. Does the patient have a suspected source of infection? No. Patient's initial sepsis screen is negative. Risk Assessment: Do you want to hurt yourself or someone else? Patient reports no desire to harm self or others. Onset of symptoms was June 14, 2022. 08:30 Method Of Arrival: Ambulatory ss 08:30 Acuity: PRIMO 3 ss Triage Assessment: 11:45 General: Appears uncomfortable, Behavior is calm, cooperative. Pain: Complains of pain ap3 in left upper quadrant and right upper quadrant and epigastric area. GI: Reports lower abdominal pain, upper abdominal pain, nausea. 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 - Social history:: Smoking status: Patient reports the use of cigarette tobacco products, denies chronic smoking, but will smoke occasionally. Screenin:20 [facility] ED Fall Risk Assessment (Adult) History of falling in the last 3 months, ap3 including since admission. Abuse screen: Denies threats or abuse. Nutritional screening: No deficits noted. Tuberculosis screening: No symptoms or risk factors identified. Vital Signs: 08:30 Pulse 75; Resp 15; Temp 98.2(TE); Pulse Ox 100% on R/A; Height 5 ft. 7 in. (170.18 cm); Pain 9/10; 08:34 BP 140 / 85; ss 13:20 BP 105 / 85; Pulse 64; Pulse Ox 99% ; ap3 ED Course: 07:59 Patient arrived in ED. am2 08:23 Adebayo Mcpherson PA is PHCP. m 08:23 Kimberley Rich MD is Attending Physician. m 08:30 Triage completed. ss 08:30 Arm band placed on right wrist. ss 08:54 Inserted saline lock: 22 gauge in left antecubital area, using aseptic technique. Blood rs5 collected. 08:55 CBC with Diff Sent. rs5 08:55 CMP Sent. rs5 08:55 Lipase Sent. rs5 09:15 Debby Jefferson, PETAR is Primary Nurse. ap3 09:35 CT Abd/Pelvis - IV Contrast Only In Process Unspecified. EDMS 11:45 Pulse ox on. NIBP on. ap3 13:20 No provider procedures requiring assistance completed. IV discontinued, intact, ap3 bleeding controlled, No redness/swelling at site. Pressure dressing applied. 13:21 Patient has correct armband on for positive identification. ap3 Administered Medications: 10:12 Drug: NS 0.9% 1000 ml Route: IV; Rate: 1 bolus; Site: left antecubital; ap3 13:22 Follow up: IV Status: Completed infusion; IV Intake: 1000ml ap3 10:12 Drug: Pepcid (famotidine) 20 mg Route: IVP; Site: left antecubital; ap3 11:12 Follow up: Response: No adverse reaction ap3 10:12 Drug: Zofran (Ondansetron) 4 mg Route: IVP; Site: left antecubital; ap3 11:12 Follow up: Response: No adverse reaction ap3 10:12 Drug: morphine 4 mg Route: IVP; Infused Over: 4 mins; Site: left antecubital; ap3 11:12 Follow up: Response: No adverse reaction; Pain is unchanged, physician notified ap3 10:12 Drug: GI Cocktail without - (Maalox Suspension 30 ml, Lidocaine Liquid 2 % 15 ap3 ml) Route: PO; 11:12 Follow up: Response: No adverse reaction; Pain is decreased ap3 12:12 Drug: Ketorolac 30 mg Route: IVP; Site: left antecubital; ap3 13:21 Follow up: Response: No adverse reaction; Pain is decreased ap3 12:12 Drug: Ketamine 10 mg Route: IVP; Site: left antecubital; ap3 13:21 Follow up: Response: No adverse reaction; Pain is decreased ap3 Medication: 13:21 VIS not applicable for this client. ap3 Intake: 13:22 IV: 1000ml; Total: 1000ml. ap3 Outcome: 12:52 Discharge ordered by MD. severino 13:21 Discharged to home ambulatory. ap3 13:21 Condition: good 13:21 Discharge instructions given to patient, Instructed on discharge instructions, follow up and referral plans. medication usage, Demonstrated understanding of instructions, follow-up care, medications, Prescriptions given X 4. 13:36 Patient left the ED. ap3 Signatures: Dispatcher [employer] EDMS Adebayo Mcpherson PA PA jmm Smirch, Shelby, RN RN ss Moreno, Amanda am2 Debby Jefferson RN RN ap3 J Carlos Gregg rs5
--- NOTE | 2022-06-15 12:53 | EDPHYS ---
Physician Documentation [facility] Name: Belia Peter Age: 32 yrs Sex: Female : 1990 Arrival Date: 06/15/2022 Time: 07:59 Bed 11 Private MD: ED Physician Kimberley Rich HPI: 06/15 08:32 This 32 yrs old Female presents to ER via Ambulatory with complaints of Epigastric Pain.jmm 08:32 The patient presents with abdominal pain. Onset: The symptoms/episode began/occurred jmm gradually, 1 day(s) ago. The symptoms radiate to Associated signs and symptoms: Pertinent negatives: fever. Is a 32-year-old female with no chronic medical conditions and presents emerged part with complaints of epigastric abdominal pain which radiates into her back. Denies fever or vomiting or diarrhea but states having some nausea.. 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 - Social history:: Smoking status: Patient reports the use of cigarette tobacco products, denies chronic smoking, but will smoke occasionally. ROS: 08:32 Constitutional: Negative for fever, chills, and weight loss, Cardiovascular: Negative jmm for chest pain, palpitations, and edema, Respiratory: Negative for shortness of breath, cough, wheezing, and pleuritic chest pain. 08:32 Abdomen/GI: Positive for abdominal pain. 08:32 All other systems are negative. Exam: 08:32 Constitutional: This is a well developed, well nourished patient who is awake, alert, jmm and in no acute distress. Head/Face: atraumatic. Eyes: EOMI, no conjunctival erythema appreciated ENT: Moist Mucus Membranes Neck: Trachea midline, Supple Chest/axilla: Normal chest wall appearance and motion. Cardiovascular: Regular rate and rhythm. No edema appreciated Respiratory: Normal respirations, no respiratory distress appreciated 08:32 Back: Normal ROM Skin: General appearance color normal MS/ Extremity: Moves all extremities, no obvious deformities appreciated, no edema noted to the lower extremities Neuro: Awake and alert Psych: Behavior is normal, Mood is normal, Patient is cooperative and pleasant 08:32 Abdomen/GI: Inspection: abdomen appears normal, Bowel sounds: normal, Palpation: soft, mild abdominal tenderness, in the epigastric area, right upper quadrant and left upper quadrant. Vital Signs: 08:30 Pulse 75; Resp 15; Temp 98.2(TE); Pulse Ox 100% on R/A; Height 5 ft. 7 in. (170.18 cm); ss Pain 9/10; 08:34 BP 140 / 85; ss 13:20 BP 105 / 85; Pulse 64; Pulse Ox 99% ; ap3 MDM: 08:32 Patient medically screened. [facility] 12:51 Data reviewed: vital signs, nurses notes. Counseling: I had a detailed discussion with mere the patient and/or guardian regarding: the historical points, exam findings, and any diagnostic results supporting the discharge/admit diagnosis, lab results, radiology results, the need for outpatient follow up, to return to the emergency department if symptoms worsen or persist or if there are any questions or concerns that arise at home. Response to treatment: the patient's symptoms have mildly improved after treatment, and as a result, I will discharge patient. ED course: Labs and imaging studies were unremarkable. Patient advised follow-up PCP and otherwise given strict return precautions. Patient understands agrees plan of care.. 06/15 08:33 Order name: CBC with Diff; Complete Time: 09:31 [facility] 06/15 08:33 Order name: CMP; Complete Time: 09:31 [facility] 06/15 08:33 Order name: Lipase; Complete Time: 09:31 [facility] 06/15 08:33 Order name: CT Abd/Pelvis - IV Contrast Only; Complete Time: 09:47 [facility] 06/15 08:33 Order name: IV Saline Lock; Complete Time: 08:54 [facility] 06/15 08:33 Order name: Labs collected and sent; Complete Time: 08:54 [facility] Administered Medications: 10:12 Drug: NS 0.9% 1000 ml Route: IV; Rate: 1 bolus; Site: left antecubital; ap3 13:22 Follow up: IV Status: Completed infusion; IV Intake: 1000ml ap3 10:12 Drug: Pepcid (famotidine) 20 mg Route: IVP; Site: left antecubital; ap3 11:12 Follow up: Response: No adverse reaction ap3 10:12 Drug: Zofran (Ondansetron) 4 mg Route: IVP; Site: left antecubital; ap3 11:12 Follow up: Response: No adverse reaction ap3 10:12 Drug: morphine 4 mg Route: IVP; Infused Over: 4 mins; Site: left antecubital; ap3 11:12 Follow up: Response: No adverse reaction; Pain is unchanged, physician notified ap3 10:12 Drug: GI Cocktail without - (Maalox Suspension 30 ml, Lidocaine Liquid 2 % 15 ap3 ml) Route: PO; 11:12 Follow up: Response: No adverse reaction; Pain is decreased ap3 12:12 Drug: Ketorolac 30 mg Route: IVP; Site: left antecubital; ap3 13:21 Follow up: Response: No adverse reaction; Pain is decreased ap3 12:12 Drug: Ketamine 10 mg Route: IVP; Site: left antecubital; ap3 13:21 Follow up: Response: No adverse reaction; Pain is decreased ap3 Disposition: 18:41 STAFF ATTESTATION STATEMENT: I was immediately available onsite in the emergency sd2 department for consultation in the care of this patient. I did not see or examine this patient. Kimberley Rich MD. Disposition Summary: 06/15/22 12:52 Discharge Ordered Location: Home [facility] Condition: Stable [facility] Diagnosis - Epigastric abdominal pain [facility] Followup: [facility] - With: Private Physician - When: 2 - 3 days - Reason: Recheck today's complaints, Continuance of care, Re-evaluation by your physician Discharge Instructions: - Discharge Summary Sheet [facility] - Abdominal Pain, Adult [facility] Forms: - Medication Reconciliation Form [facility] - Thank You Letter [facility] - Antibiotic Education [facility] - Prescription Opioid Use [facility] Prescriptions: - Carafate 1 gram Oral Tablet - take 1 tablet by ORAL route 4 times per day take on an empty stomach, beginning jm on waking and last dose at bedtime; 100 tablet; Refills: 0, Product Selection Permitted - Pepcid 20 mg Oral Tablet - take 1 tablet by ORAL route every 12 hours for 10 days; 20 tablet; Refills: 0, [facility] Product Selection Permitted - dicyclomine 20 mg Oral Tablet - take 1 tablet by ORAL route 4 times per day As needed; 30 tablet; Refills: 0, [facility] Product Selection Permitted - ondansetron 4 mg Oral - take 4 milligrams by SUBLINGUAL route every 8 hours; 15 tablet; Refills: 0, [facility] Product Selection Permitted Signatures: Dispatcher [employer] Adebayo Grant PA PA jmm Smirch, Shelby, RN RN ss Prokisch, Amanda, RN RN ap3 Dunlop, Stephanie, MD MD sd2
[2022-06-15 13:51] VITALS: TEMP 98.2
[2022-06-15 14:01] VITALS: BP 105/85; O2SAT 99
== END 2022-06-15 13:36 | disposition home or self-care (01) ==
LOC: ER 07:58
DX: R10.13 Epigastric pain (principal); F17.210 Nicotine dependence, cigarettes, uncomplicated
CPT/HCPCS: 36415; 74177; 80053; 83690; 85025; 96361; 96374; 96375; 99284; J2405; J7030; Q9967

== ENCOUNTER 2023-10-06 09:38 | Emergency (ER) | payer SELFPAY ==
[2023-10-06] MEDS ORDERED: CYCLOBENZAPRINE 10 MG TAB ONE (10:08)
[2023-10-06] MEDS ORDERED: IBUPROFEN 400 MG TAB ONE (10:08)
--- NOTE | 2023-10-06 10:24 | RAD REPORT ---
EXAM DESCRIPTION: RAD - Wrist Right 3 View - 10/06/2023 10:15 am CLINICAL HISTORY: Right wrist pain status post injury FINDINGS: No fracture or dislocation is seen. If the patient continues to have symptoms to suggest a n occult fracture then a followup plain film series in 7 days would be recommended.
--- NOTE | 2023-10-06 11:07 | ER ---
Nurse's Notes [facility] Name: Belia Peter Age: 33 yrs Sex: Female : 1990 Arrival Date: 10/06/2023 Time: 09:38 Bed 6 Private MD: Diagnosis: Pain in right wrist Presentation: 10/05 09:57 Chief complaint: Patient states: [place] a pop to R wrist/hand at 0045 this AM while in ll1 the tub. Pain radiates into R arm now. Coronavirus screen: Client denies travel out of the [place] in the last 14 days. At this time, the client does not indicate any symptoms associated with coronavirus-19. Ebola Screen: Patient denies travel to an Ebola-affected area in the 21 days before illness onset. Initial Sepsis Screen: Does the patient meet any 2 criteria? No. Patient's initial sepsis screen is negative. Does the patient have a suspected source of infection? No. Patient's initial sepsis screen is negative. Risk Assessment: Do you want to hurt yourself or someone else? Patient reports no desire to harm self or others. Onset of symptoms was October 06, 2023. 09:57 Method Of Arrival: Ambulatory ll1 09:57 Acuity: PRIMO 4 ll1 Triage Assessment: 09:59 General: Appears uncomfortable, Behavior is calm, cooperative, appropriate for age. ll1 Pain: Complains of pain in left hand Pain currently is 9 out of 10 on a pain scale. Quality of pain is described as aching, throbbing, Pain began 1 day ago. Musculoskeletal: Circulation, motion, and sensation intact. Capillary refill < 3 seconds, Reports pain in right hand. Injury Description: Bruise. 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 - Infectious Disease History:: Denies. - Social history:: Smoking status: Patient reports the use of cigarette tobacco products, smokes one-half pack cigarettes per day. - Family history:: not pertinent. Screenin:59 [facility] ED Fall Risk Assessment (Adult) History of falling in the last 3 months, ll1 including since admission No falls in past 3 months (0 pts) Confusion or Disorientation No (0 pts) Intoxicated or Sedated No (0 pts) Impaired Gait No (0 pts) Mobility Assist Device Used No (0 pt) Altered Elimination No (0 pt) Score/Fall Risk Level 0 - 2 = Low Risk Maintained a safe environment, Hourly rounding (assess needs \T\ fall precautionary measures) done. Abuse screen: Denies threats or abuse. Nutritional screening: No deficits noted. Tuberculosis screening: No symptoms or risk factors identified. Assessment: 10:16 Reassessment: No changes from previously documented assessment. Patient and/or family ll1 updated on plan of care and expected duration. Pain level reassessed. Patient is alert, oriented x 3, equal unlabored respirations, skin warm/dry/pink. 10:49 Reassessment: No changes from previously documented assessment. Patient and/or family ll1 updated on plan of care and expected duration. Pain level reassessed. Patient is alert, oriented x 3, equal unlabored respirations, skin warm/dry/pink. 11:37 Reassessment: No changes from previously documented assessment. Patient and/or family ll1 updated on plan of care and expected duration. Pain level reassessed. Patient is alert, oriented x 3, equal unlabored respirations, skin warm/dry/pink. 11:37 Musculoskeletal: Circulation, motion, and sensation intact. Capillary refill < 3 ll1 seconds. Vital Signs: 09:57 BP 145 / 71; Pulse 68; Resp 17; Temp 97.6; Pulse Ox 100% ; Weight 124.74 kg; Height 5 ll1 ft. 7 in. ; Pain 9/10; 11:35 BP 143 / 98; Pulse 57; Resp 17; Pulse Ox 96% ; Pain 7/10; ll1 09:57 Body Mass Index 43.07 (124.74 kg, 170.18 cm) ll1 09:57 Pain Scale: Adult ll1 11:35 Pain Scale: Adult ll1 ED Course: 09:39 Patient arrived in ED. mr 09:40 Ti Ellison MD is Attending Physician. rt 09:53 Arm band placed on Patient placed in an exam room, on a stretcher. ll1 09:59 Triage completed. ll1 10:00 Patient has correct armband on for positive identification. Bed in low position. Call ll1 light in reach. Provided Education on: ER procedures and process. 10:00 No provider procedures requiring assistance completed. Patient did not have IV access ll1 during this emergency room visit. 10:16 Wrist Right 3 View XRAY In Process Unspecified. EDMS 10:49 Braeden Motta RN is Primary Nurse. ll1 11:15 Velcro wrist splint applied to right wrist. em1 Administered Medications: 10:16 Drug: Ibuprofen PO 800 mg PO once Route: PO; ll1 10:49 Follow up: Response: No adverse reaction; Pain is unchanged, physician notified ll1 10:16 Drug: Cyclobenzaprine PO 10 mg PO once Route: PO; ll1 10:49 Follow up: Response: No adverse reaction; Pain is unchanged, physician notified; RASS: ll1 Alert and Calm (0) 11:13 Drug: traMADol PO 50 mg PO once Route: PO; ll1 11:27 Follow up: Response: No adverse reaction; Pain is unchanged, physician notified; RASS: ll1 Alert and Calm (0) Medication: 10:00 VIS not applicable for this client. ll1 Outcome: 11:07 Discharge ordered by MD. rt 11:37 Patient left the ED. ll1 11:37 Discharged to home ambulatory, ll1 11:37 Condition: stable 11:37 Discharge instructions given to patient, Instructed on discharge instructions, follow up and referral plans. Demonstrated understanding of instructions, follow-up care, Signatures: Dispatcher [employer] EDOR Bonnie Damian, Reg Reg mr GrafGadiel em1 Braeden Motta RN RN ll1 Ti Ellison MD MD rt Corrections: (The following items were deleted from the chart) 12:54 11:37 Reassessment: No changes from previously documented assessment. Patient and/or ll1 family updated on plan of care and expected duration. Pain level reassessed. Patient is alert, oriented x 3, equal unlabored respirations, skin warm/dry/pink. ll1 12:54 12:54 Musculoskeletal: Circulation, motion, and sensation intact. Capillary refill < 3 ll1 seconds, ll1
--- NOTE | 2023-10-06 11:07 | EDPHYS ---
Physician Documentation [facility] Name: Belia Peter Age: 33 yrs Sex: Female : 1990 Arrival Date: 10/06/2023 Time: 09:38 Bed 6 Private MD: ED Physician Ti Ellison HPI: 10/05 10:20 This 33 yrs old Female presents to ER via Ambulatory with complaints of Hand Injury. rt 10:20 Patient presents to the ED with a right wrist injury. Patient states that she was in rt the bathtub, turning an object when she felt a snap in her wrist. This caused pain to radiate to the rest of the arm. Denies numbness, tingling. Denies other acute complaints, symptoms are moderate in severity, no other aggravating or alleviating factors.. 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 - Infectious Disease History:: Denies. - Social history:: Smoking status: Patient reports the use of cigarette tobacco products, smokes one-half pack cigarettes per day. - Family history:: not pertinent. ROS: 10:20 Constitutional: Negative for fever, chills, and weight loss, Cardiovascular: Negative rt for chest pain, palpitations, and edema, Respiratory: Negative for shortness of breath, cough, wheezing, and pleuritic chest pain, Abdomen/GI: Negative for abdominal pain, nausea, vomiting, diarrhea, and constipation, Skin: Negative for injury, rash, and discoloration, Neuro: Negative for headache, weakness, numbness, tingling, and seizure, 10:20 MS/extremity: Positive for pain, Negative for injury or acute deformity, Exam: 10:20 Constitutional: This is a well developed, well nourished patient who is awake, alert, rt and in no acute distress. Head/Face: Normocephalic, atraumatic. Chest/axilla: Normal chest wall appearance and motion. Nontender with no deformity. No lesions are appreciated. Cardiovascular: Regular rate and rhythm with a normal S1 and S2. No gallops, murmurs, or rubs. Normal PMI, no JVD. No pulse deficits. Respiratory: Lungs have equal breath sounds bilaterally, clear to auscultation and percussion. No rales, rhonchi or wheezes noted. No increased work of breathing, no retractions or nasal flaring. Abdomen/GI: Soft, non-tender, with normal bowel sounds. No distension or tympany. No guarding or rebound. No evidence of tenderness throughout. Skin: Warm, dry with normal turgor. Normal color with no rashes, no lesions, and no evidence of cellulitis. Neuro: Awake and alert, GCS 15, oriented to person, place, time, and situation. Cranial nerves II-XII grossly intact. Motor strength 5/5 in all extremities. Sensory grossly intact. Cerebellar exam normal. Normal gait. 10:20 Musculoskeletal/extremity: Tenderness medially on left wrist, no deformities noted, there is mild muscular tenderness to the rest of the arm, no bruising noted. Full range of motion.. Vital Signs: 09:57 BP 145 / 71; Pulse 68; Resp 17; Temp 97.6; Pulse Ox 100% ; Weight 124.74 kg; Height 5 ll1 ft. 7 in. ; Pain 9/10; 11:35 BP 143 / 98; Pulse 57; Resp 17; Pulse Ox 96% ; Pain 7/10; ll1 09:57 Body Mass Index 43.07 (124.74 kg, 170.18 cm) ll1 09:57 Pain Scale: Adult ll1 11:35 Pain Scale: Adult ll1 MDM: 09:58 Patient medically screened. rt 13:06 Differential diagnosis: Fracture, tendinitis, ligamentous injury. Data reviewed: vital rt signs, nurses notes, radiologic studies. I considered the following discharge prescriptions or medication management in the emergency department Medications were administered in the Emergency Department. See MAR. Independent interpretation of the following test(s) in the Emergency Department X-Ray: My interpretation is No fracture seen on interpretation of x-ray images. Counseling: I had a detailed discussion with the patient and/or guardian regarding the historical points, exam findings, and any diagnostic results supporting the discharge/admit diagnosis, radiology results, the need for outpatient follow up, Instructed patient to follow-up for repeat imaging if her symptoms persist. 10/05 10:04 Order name: Wrist Right 3 View XRAY; Complete Time: 10:26 rt 10/05 11:06 Order name: Wrist Splint; Complete Time: 11:14 rt Administered Medications: 10:16 Drug: Ibuprofen PO 800 mg PO once Route: PO; 1 10:49 Follow up: Response: No adverse reaction; Pain is unchanged, physician notified ll1 10:16 Drug: Cyclobenzaprine PO 10 mg PO once Route: PO; 1 10:49 Follow up: Response: No adverse reaction; Pain is unchanged, physician notified; RASS: ll1 Alert and Calm (0) 11:13 Drug: traMADol PO 50 mg PO once Route: PO; ll1 11:27 Follow up: Response: No adverse reaction; Pain is unchanged, physician notified; RASS: ll1 Alert and Calm (0) Disposition Summary: 10/06/23 11:07 Discharge Ordered Notes: Location: Home rt Problem: new rt Symptoms: are unchanged rt Condition: Stable rt Diagnosis - Pain in right wrist rt Followup: rt - With: Private Physician - When: 5 - 6 days - Reason: Discharge Instructions: - Discharge Summary Sheet rt - Joint Pain rt - Wrist Pain, Adult rt Forms: - Medication Reconciliation Form rt - Antibiotic Education rt - Prescription Opioid Use rt - Patient Portal Instructions rt - Leadership Thank You Letter rt Signatures: Dispatcher [employer] Braeden Sanchez, PETAR RN ll1 Ti Ellison MD MD rt
[2023-10-06] MEDS ORDERED: TRAMADOL HCL 50 MG TAB ONE (11:08)
[2023-10-06 11:47] VITALS: BP 145/71; TEMP 97.6; O2SAT 100
== END 2023-10-06 11:37 | disposition home or self-care (01) ==
LOC: ER 09:38
DX: M25.531 Pain in right wrist (principal); F17.210 Nicotine dependence, cigarettes, uncomplicated
CPT/HCPCS: 99283

== ENCOUNTER 2024-05-18 23:34 | Emergency (ER) | payer SELFPAY ==
[2024-05-19] MEDS ORDERED: DIPHENHYDRAMINE 50 MG/ML VIAL ONE (00:50)
[2024-05-19] MEDS ORDERED: KETOROLAC 30 MG/ML INJ ONE (00:50)
[2024-05-19] MEDS ORDERED: NA CHLORIDE 0.9% 1,000 ML ONE (00:51)
[2024-05-19] MEDS ORDERED: METOCLOPRAMIDE 10 MG/2mL INJ ONE (00:51)
--- NOTE | 2024-05-19 03:01 | RAD REPORT ---
CT HEAD WITHOUT IV CONTRAST INDICATION: Acute headache. COMPARISON: None TECHNIQUE: CT images of the head were obtained without contrast. Multiplanar reformats were provided. Dose lowering techniques such as automated exposure control, iterative reconstruction, and mA and/or kV adjustment for patient size was utilized for this examination. FINDINGS: PARENCHYMA: No acute arterial territory infarct. No acute intracranial hemorrhage. Partial empty sell a. No mass effect or midline shift. Cerebellar tonsils terminate at foramen magnum. CRANIOVERTEBRAL JUNCTION: Soft tissue crowding at foramen magnum with associated dorsiflexed odontoid process. The anterior column of CSF space at the craniovertebral junction is reduced. Cerebellar tonsils terminate at the level of foramen magnum. VENTRICLES: Normal in size for patient's age. EXTRA-AXIAL: No focal collection. Patent basilar cisterns. ORBITS: Unremarkable. BONES: No acute finding. PARANASAL SINUSES/MASTOIDS/MIDDLE EARS: Mild polypoid mucosal thickening of right maxillary sinus. Pa ranasal sinuses, mastoid air cells and middle ear cavities are otherwise clear. SOFT TISSUES: No acute findings. OTHER: None. IMPRESSION: 1. No CT evidence of acute intracranial abnormality. 2. Partially empty sella. 3. Crowding at foramen magnum and reduced CSF space at the craniovertebral junction with associated dorsiflexed odontoid process, likely a developmental finding. Electronically signed by: Evelin Frank MD 05/19/2024 02:53 AM [facility] Due to temporary technical issues with the PACS/[employer] reporting system, reports are being alethea d by the in-house radiologist without review as a courtesy to ensure prompt reporting the interpreting radiologist is fully responsible for the content of the report. Transcribed Date/Time: 05/19/2024 3:01 AM
--- NOTE | 2024-05-19 03:25 | ER ---
Nurse's Notes [facility] Name: Belia Peter Age: 34 yrs Sex: Female : 1990 Arrival Date: 05/18/2024 Time: 23:34 Bed 14 Private MD: Diagnosis: Tension-type headache;Acute Headache Presentation: 05/18 23:42 Chief complaint: Patient states: HEADACHE, NAUSEA, AND VOMITING. FLU LIKE SYMPTOMS LAST ha1 WEEK. TOOK IBUPROFEN AT HOME. 23:42 Coronavirus screen: Client denies travel out of the [place] in the last 14 days. Ebola ha1 Screen: No symptoms or risks identified at this time. Initial Sepsis Screen: Does the patient meet any 2 criteria? No. Patient's initial sepsis screen is negative. Does the patient have a suspected source of infection? No. Patient's initial sepsis screen is negative. Risk Assessment: Do you want to hurt yourself or someone else? Patient reports no desire to harm self or others. Onset of symptoms was May 19, 2024. 23:42 Method Of Arrival: Ambulatory ha1 23:42 Acuity: PRIMO 3 ha1 Triage Assessment: 23:44 Headache History: Denies prior headaches. General: Appears uncomfortable, Behavior is ha1 cooperative. Pain: Complains of pain in HEAD Pain currently is 10 out of 10 on a pain scale. Quality of pain is described as throbbing, Pain began 1 day ago. Is continuous. Neuro: Level of Consciousness is awake, alert, obeys commands, Oriented to person, place, time, situation. Respiratory: Airway is patent Respiratory effort is even, unlabored, Respiratory pattern is regular, symmetrical. 05/19 04:00 Pain: Also complains of no other associated symptoms. 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 - Infectious Disease History:: Denies. - Social history:: Smoking status: Patient denies any tobacco usage or history of. - Family history:: not pertinent. Screenin/06 00:11 Abuse screen: Denies threats or abuse. Denies injuries from another. Nutritional ha1 screening: No deficits noted. Tuberculosis screening: No symptoms or risk factors identified. 02:30 [facility] ED Fall Risk Assessment (Adult) History of falling in the last 3 months, kj2 including since admission No falls in past 3 months (0 pts) Confusion or Disorientation No (0 pts) Intoxicated or Sedated No (0 pts) Impaired Gait No (0 pts) Mobility Assist Device Used No (0 pt) Altered Elimination No (0 pt) Score/Fall Risk Level 0 - 2 = Low Risk Oriented to surroundings, Hourly rounding (assess needs \T\ fall precautionary measures) done. Abuse screen: Denies threats or abuse. Denies injuries from another. Assessment: 00:11 General: Appears in no apparent distress. uncomfortable, Behavior is calm, cooperative, jb4 appropriate for age. Pain: Complains of pain in migraine headache Pain does not radiate. Pain currently is 10 out of 10 on a pain scale. Neuro: Level of Consciousness is awake, alert, obeys commands, Oriented to person, place, time, situation, Reports photophobia. Cardiovascular: Patient's skin is warm and dry. Respiratory: Airway is patent Respiratory effort is even, unlabored, Respiratory pattern is regular, symmetrical. Derm: Skin is intact, Skin is pink, warm \T\ dry. Musculoskeletal: Circulation, motion, and sensation intact. Range of motion: intact in all extremities. 00:58 Reassessment: Patient appears in no apparent distress at this time. Patient and/or jb4 family updated on plan of care and expected duration. Pain level reassessed. Patient is alert, oriented x 3, equal unlabored respirations, skin warm/dry/pink. 02:36 Reassessment: Patient appears in no apparent distress at this time. Patient and/or jb4 family updated on plan of care and expected duration. Pain level reassessed. Patient is alert, oriented x 3, equal unlabored respirations, skin warm/dry/pink. Patient states feeling better. 03:25 Reassessment: No changes from previously documented assessment. Patient and/or family kj2 updated on plan of care and expected duration. Pain level reassessed. Patient is alert, oriented x 3, equal unlabored respirations, skin warm/dry/pink. Vital Signs: 05/18 23:42 BP 146 / 84; Pulse 68; Resp 17 S; Temp 97.8; Pulse Ox 100% on R/A; Weight 133.81 kg; ha1 Height 5 ft. 7 in. ; 05/19 03:34 BP 112 / 62; Pulse 67; Resp 18; Pulse Ox 100% on R/A; kj2 04:02 BP 118 / 66; Pulse 64; Resp 18; Temp 98; Pulse Ox 100% on R/A; kj2 05/18 23:42 Body Mass Index 46.20 (133.81 kg, 170.18 cm) ha1 ED Course: 05/18 23:37 Patient arrived in ED. gm2 23:38 Sathish Ramirez MD is Attending Physician. sp4 05/19 00:08 Triage completed. ha1 00:48 Inserted saline lock: 20 gauge in left antecubital area, using aseptic technique. Blood vk collected. Flushed with 10 mL NS. 01:37 CT Head Brain wo Cont In Process Unspecified. EDMS 02:30 Patient has correct armband on for positive identification. Bed in low position. Call kj2 light in reach. Adult w/ patient. Provided Education on: call light. Report received from PETAR Arreola. 02:30 Arm band placed on Patient placed in an exam room, on a stretcher. kj2 03:21 Maynor Atkins MD is Referral Physician. sp4 03:23 Nanci Mack, PETAR is Primary Nurse. kj2 04:00 No provider procedures requiring assistance completed. IV discontinued, intact, kj2 bleeding controlled, No redness/swelling at site. Pressure dressing applied. Administered Medications: 00:59 Drug: Ketorolac IVP 30 mg IVP once Route: IVP; Site: left antecubital; jb4 03:25 Follow up: Response: No adverse reaction kj2 00:59 Drug: metoCLOPramide IVP 10 mg IVP once; over 1 to 2 minutes Route: IVP; Site: left jb4 antecubital; 03:24 Follow up: Response: No adverse reaction kj2 00:59 Drug: diphenhydrAMINE IVP 25 mg IVP once Route: IVP; Site: left antecubital; jb4 03:24 Follow up: Response: No adverse reaction kj2 00:59 Drug: NS 0.9% IV 1000 ml IV at 1 bolus Per protocol; to be given as a bolus over 60 jb4 minutes Route: IV; Rate: 1 bolus; Site: left antecubital; 02:00 Follow up: IV Status: Completed infusion; IV Intake: 1000ml kj2 03:24 Follow up: Response: No adverse reaction kj2 04:01 Drug: Acetaminophen-Codeine PO (300 mg-30 mg) 2 tabs PO once; RASS on ADMIN: Combtv4, kj2 Very Agttd3, Agttd2, Rstlss1, AlertClm0, Drwsy-1, Lt Sdtn-2, Mod Sdtn-3, Dp Sdtn-4, UnArsble-5 Route: PO; 04:01 Follow up: Response: Medication administered at discharge. kj2 Medication: 02:30 VIS not applicable for this client. kj2 Intake: 02:00 IV: 1000ml; Total: 1000ml. kj2 Outcome: 03:24 Discharge ordered by . sp4 04:01 Discharged to home ambulatory, with family, kj2 04:01 Condition: stable 04:01 Discharge instructions given to patient, family, Instructed on discharge instructions, follow up and referral plans. Demonstrated understanding of instructions, follow-up care, 04:09 Patient left the ED. kj2 Signatures: Dispatcher [employer] EDMS Sylvester Cedillo RN RN jb4 Ibeth Keene RN RN julia1 Sathish Ramirez MD MD sp4 Haylee Paul gm2 Lea Dunn Krystal, RN RN kj2 Corrections: (The following items were deleted from the chart) 00:10 1205 23:42 Chief complaint: Patient states: HEADACHE, NAUSEA, AND VOMITING. FLU LIKE ha1 SYMPTOMS LAST WEEK ha1 05/19 00:11 12 23:42 Chief complaint: Patient states: HEADACHE, NAUSEA, AND VOMITING. FLU LIKE ha1 SYMPTOMS LAST WEEK ha1
--- NOTE | 2024-05-19 03:25 | EDPHYS ---
Physician Documentation [facility] Name: Belia Peter Age: 34 yrs Sex: Female : 1990 Arrival Date: 05/18/2024 Time: 23:34 Bed 14 Private MD: ED Physician Sathish Ramirez HPI: 05/18 23:38 This 34 yrs old Other Race Female presents to ER via Unassigned with complaints of sp4 Headache. 05/19 04:21 34-year-old female with positive prior history of chronic back pain presents with sp4 moderate to severe diffuse headache associated with 2 episodes of vomiting.. 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 - Infectious Disease History:: Denies. - Social history:: Smoking status: Patient denies any tobacco usage or history of. - Family history:: not pertinent. ROS: 05/19 04:21 Constitutional: Negative for fever, chills, and weight loss, positive for acute global sp4 headache. Positive for vomiting All other systems are negative, Exam: 04:21 Constitutional: This is a well developed, well nourished patient who is awake, alert, sp4 and in no acute distress. Head/Face: Normocephalic, atraumatic. Eyes: Pupils equal round and reactive to light, extra-ocular motions intact. Lids and lashes normal. Conjunctiva and sclera are not injected. Cornea within normal limits. Periorbital areas with no swelling, redness, or edema. ENT: Nares patent. No nasal discharge, no septal abnormalities noted. Tympanic membranes are normal and external auditory canals are clear. Oropharynx with no redness, swelling, or masses, exudates, or evidence of obstruction, uvula midline. Mucous membranes moist. Neck: Trachea midline, no thyromegaly or masses palpated, and no cervical lymphadenopathy. Supple, full range of motion without nuchal rigidity, or vertebral point tenderness. Chest/axilla: Normal chest wall appearance and motion. Nontender with no deformity. No lesions are appreciated. Cardiovascular: Regular rate and rhythm with a normal S1 and S2. No gallops, murmurs, or rubs. Normal PMI, no JVD. No pulse deficits. Respiratory: Lungs have equal breath sounds bilaterally, clear to auscultation and percussion. No rales, rhonchi or wheezes noted. No increased work of breathing, no retractions or nasal flaring. Abdomen/GI: Soft, with normal bowel sounds. No distension or tympany. No guarding or rebound. No evidence of tenderness throughout. Back: No spinal tenderness. No costovertebral tenderness. Skin: Warm, dry with normal turgor. Normal color with no rashes, no lesions, and no evidence of cellulitis. MS/ Extremity: Pulses equal, no cyanosis. Neurovascular intact. Full, normal range of motion. Neuro: Awake and alert, GCS 15, oriented to person, place, time, and situation. Cranial nerves II-XII grossly intact. Motor strength 5/5 in all extremities. Sensory grossly intact. Psych: Awake, alert, with orientation to person, place and time. Behavior, mood, and affect are within normal limits Vital Signs: 05/18 23:42 BP 146 / 84; Pulse 68; Resp 17 S; Temp 97.8; Pulse Ox 100% on R/A; Weight 133.81 kg; ha1 Height 5 ft. 7 in. ; 05/19 03:34 BP 112 / 62; Pulse 67; Resp 18; Pulse Ox 100% on R/A; kj2 04:02 BP 118 / 66; Pulse 64; Resp 18; Temp 98; Pulse Ox 100% on R/A; kj2 05/18 23:42 Body Mass Index 46.20 (133.81 kg, 170.18 cm) [facility] MDM: 00:26 Medical Screening Exam initiated sp4 03:14 ED course: CT HEAD WITHOUT IV CONTRAST INDICATION: Acute headache. COMPARISON: None sp4 TECHNIQUE: CT images of the head were obtained without contrast. Multiplanar reformats were provided. Dose lowering techniques such as automated exposure control, iterative reconstruction, and mA and/or kV adjustment for patient size was utilized for this examination. FINDINGS: PARENCHYMA: No acute arterial territory infarct. No acute intracranial hemorrhage. Partial empty sella. No mass effect or midline shift. Cerebellar tonsils terminate at foramen magnum. CRANIOVERTEBRAL JUNCTION: Soft tissue crowding at foramen magnum with associated dorsiflexed odontoid process. The anterior column of CSF space at the craniovertebral junction is reduced. Cerebellar tonsils terminate at the level of foramen magnum. VENTRICLES: Normal in size for patient's age. EXTRA-AXIAL: No focal collection. Patent basilar cisterns. ORBITS: Unremarkable. BONES: No acute finding. PARANASAL SINUSES/MASTOIDS/MIDDLE EARS: Mild polypoid mucosal thickening of right maxillary sinus. Paranasal sinuses, mastoid air cells and middle ear cavities are otherwise clear. SOFT TISSUES: No acute findings. OTHER: None. IMPRESSION: 1. No CT evidence of acute intracranial abnormality. 2. Partially empty sella. 3. Crowding at foramen magnum and reduced CSF space at the craniovertebral junction with associated dorsiflexed odontoid process, likely a developmental finding. Electronically signed by: Evelin Frank MD 05/19/2024 02:53 AM CREDIT REFERENCE CLERK. 04:22 Differential diagnosis: cluster headache, migraine, tension headache, vasomotor sp4 headache. Data reviewed: vital signs, nurses notes, radiologic studies, CT scan, I have discussed the patient's presentation/case with the attending Emergency Department Physician;. ED course: Headache has much improved. Patient stable for discharge home. . 05/19 00:36 Order name: CT Head Brain wo Cont; Complete Time: 03:17 sp4 05/19 00:35 Order name: Saline Lock; Complete Time: 00:48 sp4 Administered Medications: 00:59 Drug: Ketorolac IVP 30 mg IVP once Route: IVP; Site: left antecubital; jb4 03:25 Follow up: Response: No adverse reaction kj2 00:59 Drug: metoCLOPramide IVP 10 mg IVP once; over 1 to 2 minutes Route: IVP; Site: left jb4 antecubital; 03:24 Follow up: Response: No adverse reaction kj2 00:59 Drug: diphenhydrAMINE IVP 25 mg IVP once Route: IVP; Site: left antecubital; jb4 03:24 Follow up: Response: No adverse reaction kj2 00:59 Drug: NS 0.9% IV 1000 ml IV at 1 bolus Per protocol; to be given as a bolus over 60 jb4 minutes Route: IV; Rate: 1 bolus; Site: left antecubital; 02:00 Follow up: IV Status: Completed infusion; IV Intake: 1000ml kj2 03:24 Follow up: Response: No adverse reaction kj2 04:01 Drug: Acetaminophen-Codeine PO (300 mg-30 mg) 2 tabs PO once; RASS on ADMIN: Combtv4, kj2 Very Agttd3, Agttd2, Rstlss1, AlertClm0, Drwsy-1, Lt Sdtn-2, Mod Sdtn-3, Dp Sdtn-4, UnArsble-5 Route: PO; 04:01 Follow up: Response: Medication administered at discharge. kj2 Disposition Summary: 05/19/24 03:24 Discharge Ordered Notes: Location: Home sp4 Problem: new sp4 Symptoms: have improved sp4 Condition: Stable sp4 Diagnosis - Tension-type headache sp4 - Acute Headache sp4 Followup: sp4 - With: Maynor Atkins MD - When: 7 - 10 days - Reason: Recheck today's complaints Discharge Instructions: - Discharge Summary Sheet sp4 - Tension Headache, Adult, [id number] sp4 Forms: - Patient Portal Instructions sp4 Prescriptions: - Fioricet 50-300-40 mg Oral capsule - take 1 capsule ORAL route every 6 hours PRN headache; 30 capsule; Refills: 0, sp4 Product Selection Permitted Signatures: Dispatcher [employer] Sylvester Khalil, RN RN jb4 Ibeth Keene RN RN ha1 Sathish Ramirez MD MD sp4 Nanci Mack RN RN kj2
[2024-05-19] MEDS ORDERED: CODEINE 30MG/APAP 300MG TAB ONE (03:28)
[2024-05-19 10:01] VITALS: O2SAT 100
[2024-05-19 10:17] VITALS: BP 118/66; TEMP 98
== END 2024-05-19 04:09 | disposition home or self-care (01) ==
LOC: ER 23:34
DX: G44.209 Tension-type headache, unspecified, not intractable (principal)
CPT/HCPCS: 70450; 96361; 96374; 96375; 99284; J1200; J2765; J7030

== ENCOUNTER 2025-04-02 09:58 | Emergency (ER) | payer SELFPAY ==
--- OUTSIDE RECORDS SUMMARY | 2025-04-02 10:02 | XMS REPORT | Continuity of Care Document ---
Author Name Unknown Address [address] [place] [address] [facility] Address [address] [place] [address] Care Team Providers Care Documentation Nurse Name Role Phone PCP, PATIENT DOES NOT HAVE A Primary Care Physic shade Unavailable DRAGAN QURESHI Attending Clinician Unavailab GUSTAVO Aguirre Attending Clinician Unavailable [facility] Attending Clinician [phone] Doctor Unassigned, [place] Attending Clinician U Najma Sanders CNM Attending Clinician NAJMA ROCHA Attending Clinician Unavaila sonia Pcp, Patient Does Not Have A Attending Clinician DRAGAN QURESHI Admitting Clinician Unavailab jesus Payers Payer Name Policy Type Policy Number Effective Date Expirati on Date Source [facility] [id number] 2024 00:00:00 Problems Condition Name Condition Details Condition Category Status Onset Date Resolution Date Last Treatment Date Treating Clinician Comments Source Sprain of left foot, initial encounter Sprain of left foot, initial encounter Disease Active 02-25 00:00: 00 [facility] Sprain of other ligament of left ankle, initial encounter Sprain of other ligament of left ankle, initial encounter Disease Active 02-25 00:00: 00 [facility] History of partial hysterecto my History of partial hysterecto my Disease Active 03-11 00:00: 00 Overview: Formattin g of this note might be different from the original. Has ovaries [facility] Depression , unspecifie d depression type Depression , unspecifie d depression type Disease Active 03-11 00:00: 00 [facility] Elevated blood pressure reading without diagnosis of hypertensi on Elevated blood pressure reading without diagnosis of hypertensi on Disease Active 03-08 00:00: 00 [facility] Morbid obesity Morbid obesity Disease Resolve d 03-08 00:00: 00 2024-07-28 00:00:00 2024-07-28 08:47:32 [facility] Metabolic syndrome Metabolic syndrome Disease Resolve d 03-13 00:00: 00 2023-03-11 00:00:00 2023-03-11 16:02:26 [facility] PCOS (polycysti c ovarian syndrome) PCOS (polycysti c ovarian syndrome) Disease Resolve d 03-13 00:00: 00 2023-03-11 00:00:00 2023-03-11 16:02:03 [facility] Abdominal pain, generalize d Abdominal pain, generalize d Disease Resolve d 03-08 00:00: 00 2023-03-11 00:00:00 2023-03-11 16:02:05 [facility] History of female sterilizat ion History of female sterilizat ion Disease Resolve d 03-08 00:00: 00 2023-03-11 00:00:00 2023-03-11 16:02:11 [facility] Irregular menstrual cycle Irregular menstrual cycle Disease Resolve d 03-08 00:00: 00 2023-03-11 00:00:00 2023-03-11 16:01:56 [facility] Insomnia Insomnia Disease Resolve d 03-08 00:00: 00 2023-03-11 00:00:00 2023-03-11 16:02:25 [facility] Allergies, Adverse Reactions, Alerts Allergy Name Allergy Type Status Severity Reaction(s) Onset Date Inactive Date Treating Clinician Comments Source NO KNOWN ALLERGIE S Drug Class Active [facility] Social History Social Habit Start Date Stop Date Quantity Comments Source Sexual orientation [facility] ASSERTION Not [facility] History of Occupation [facility] History of tobacco use Cigarette Smoker [facility] Gender identity [facility] Alcoholic beverage intake 2025-02-25 00:00:00 2025-02-25 00:00:00 0 /d [facility] History of Social function 2024-07-28 00:00:00 2024-07-28 00:00:00 [facility] Tobacco Comment 2024-07-28 00:00:00 2024-07-28 00:00:00 vapes [facility] Alcohol intake 2023-04-05 00:00:00 2023-04-05 00:00:00 0 /d [facility] Alcohol Comment 2015-03-08 00:00:00 2015-03-08 00:00:00 Socail Occasional drinker only [facility] Sex assigned at 1990 00:00:00 1990 00:00:00 [facility] Smoking Status Start Date Stop Date Source Ex-smoker 2024-07-28 00:00:00 2024-07-28 00:00:00 [facility] Medications Ordered Medication Name Filled Medication Name Start Date Stop Date Current Medication? Ordering Clinician Indication Dosage Frequency Signature (SIG) Comments Components Source ketorolac (TORADOL) 30 mg/mL (1 mL) injection 30 mg 02-26 02:30: 00 02-26 01:52 :00 No 30mg 30 mg, Intramuscu lar, ONCE, 1 dose, On 02/25/25 at 2130, Routine [facility] HYDROcodone -acetaminop hen (NORCO 5) 5-325 mg tablet 1 tablet 02-26 00:00: 00 02-26 00:23 :00 No 1{tbl} 1 tablet, Oral, ONCE, 1 dose, On 02/25/25 at 1900, NESTOR [facility] HYDROmorphO ne (DILAUDID) 2 mg tablet 03-09 13:17: 13 03-09 00:00 :00 No 2mg Take 1 tablet by mouth every 6 (six) hours as needed. [facility] SERTraline 100 mg tablet 03-09 00:00: 00 Yes [id number] 100mg Take 1 tablet by mouth in the morning. [facility] azithromyci n 250 mg tablet 11-28 00:00: 00 03-09 00:00 :00 No [id number] 250mg Take 1 tablet by mouth daily. Take 500 mg day 1, then 250 mg days 2 to 5. [facility] traMADOL (ULTRAM) 50 mg tablet 10-30 00:00: 00 03-09 00:00 :00 No 50mg Take 1 tablet by mouth every 6 (six) hours as needed for Pain (scale 4-6). [facility] HYDROmorphO ne (DILAUDID) 2 mg tablet 10-02 03:34: 40 Yes 2mg Take 2 mg by mouth every 6 (six) hours as needed. [facility] acetaminoph en-codeine (TYLENOL-CO DEINE #3) 300-30 mg tablet 10-02 00:00: 00 03-09 00:00 :00 No 2{tbl} Take 2 tablets by mouth every 6 (six) hours as needed for Pain (scale 7-10). [facility] acetaminoph en-codeine 300-30 mg tablet 2016-06 0- 00:00: 00 03-09 00:00 :00 No 1{tbl} Take 1 tablet by mouth every 6 (six) hours as needed for Pain (scale 4-6). [facility] famotidine 20 mg tablet 2015-06 2 00:00: 00 03-09 00:00 :00 No 20mg Take 1 tablet by mouth 2 (two) times daily. [facility] proMETHazin e (PHENERGAN) 25 mg tablet 2-29 00:00: 00 03-09 00:00 :00 No 12.5mg Take 0.5 Tabs by mouth every 6 (six) hours as needed for Nausea and Vomiting (N/V). [facility] Vital Signs Vital Name Observation Time Observation Value Comments S sanchez Systolic blood pressure 2025-02-26 02:00:00 135 mm[Hg] [facility] Diastolic blood pressure 2025-02-26 02:00:00 85 mm[Hg] [facility] Heart rate 2025-02-26 02:00:00 77 /min [facility] Body temperature 2025-02-26 02:00:00 37.22 Dona [facility] Respiratory rate 2025-02-26 02:00:00 20 /min [facility] Oxygen saturation in Arterial blood by Pulse oximetry 2025-02-26 02:00:00 99 /min [facility] Body height 2025-02-25 23:44:00 170.2 cm [facility] Body weight 2025-02-25 23:44:00 113.399 kg [facility] BMI 2025-02-25 23:44:00 39.16 kg/m2 [facility] Systolic blood pressure 2024-07-28 14:23:00 131 mm[Hg] [facility] Diastolic blood pressure 2024-07-28 14:23:00 80 mm[Hg] [facility] Heart rate 2024-07-28 14:23:00 72 /min [facility] Body temperature 2024-07-28 14:23:00 36.33 Dona [facility] Respiratory rate 2024-07-28 14:23:00 18 /min [facility] Body height 2024-07-28 14:23:00 170.2 cm [facility] Body weight 2024-07-28 14:23:00 113.399 kg [facility] BMI 2024-07-28 14:23:00 39.16 kg/m2 [facility] Systolic blood pressure 2023-03-09 15:14:00 120 mm[Hg] [facility] Diastolic blood pressure 2023-03-09 15:14:00 82 mm[Hg] [facility] Heart rate 2023-03-09 15:09:00 69 /min [facility] Body temperature 2023-03-09 15:09:00 36.39 Dona [facility] Respiratory rate 2023-03-09 15:09:00 18 /min [facility] Body height 2023-03-09 15:09:00 170.2 cm [facility] Body weight 2023-03-09 15:09:00 124.824 kg [facility] BMI 2023-03-09 15:09:00 43.10 kg/m2 [facility] Procedures Procedure Date / Time Performed Performing Clinician Source XR ANKLE 3+ VW LEFT 2025-02-26 00:18:34 Leila Qureshi [facility] XR FOOT 3+ VW LEFT 2025-02-26 00:18:34 Snow Qureshi ril [facility] THYROID STIMULATING HORMONE 2024-07-28 15:15:00 Gustavo Sherman [facility] COMP. METABOLIC PANEL (00407) 2024-07-28 15:15:00 Gustavo Sherman [facility] LIPID PANEL (10620)(TOTAL CHOLESTEROL, TRIGLYCERIDES, HDL) 2024-07-28 15:15:00 Gustavo Sherman [facility] CBC WITH DIFF 2024-07-28 15:15:00 Gustavo Sherman [facility] GLYCOSYLATED HEMOGLOBIN (A1C) 2024-07-28 15:15:00 Gustavo Sherman [facility] HCV ANTIBODY 2024-07-28 15:15:00 Gustavo Sherman [facility] GC & CHLAMYDIA AMPLIFIED ASSAY 2024-07-28 15:15:00 [facility] HIV 1/2 AG-AB WITH REFLEX 2024-07-28 15:15:00 [address] [facility] SYPHILIS IGG/IGM 2024-07-28 15:15:00 Gustavo Sherman [facility] BCCS-RELATED DOCUMENTATION 2023-04-16 05:01:00 Doctor Unassigned, [place] [facility] BI ULTRASOUND BREAST LIMITED LEFT 2023-04-05 19:47:03 Najma Rocha [facility] BI DIAGNOSTIC TOMOSYNTHESIS BILATERAL 2023-04-05 19:00:01 Najma Rocha [facility] CONSENT/REFUSAL FOR DIAGNOSIS AND TREATMENT 2023-03-09 14:28:17 Doctor Unassigned, [place] [facility] ASSIGNMENT OF BENEFITS 2023-03-09 14:28:02 Docto r Unassigned, [place] [facility] Encounters Start Date/Time End Date/Time Encounter Type Admission Type Attending [facility] Care Facility Care Department Encounter ID Source 2025-02-25 18:47:00 2025-02-25 21:30:00 Emergency X DRAGAN QURESHI [facility] ERT [id number] [facility] 2024-07-28 08:30:00 2024-07-28 09:20:01 Outpatient R GUSTAVO SHERMAN [facility] [id number] [facility] 2024-07-28 08:30:00 2024-07-28 09:20:01 Office Visit Gustavo Sherman [facility] FOOD SCIENCE PROFESS[facility] 1.0.114 350.1.13.10 4.2.7.2.686 [id number] [facility] 2023-04-16 00:00:00 2023-04-16 00:00:00 Orders Only Doctor Unassigned, [place] [facility] 1.2840.114 350.1.13.10 4.2.7.2.686 [id number] [facility] 2023-04-05 13:06:14 2023-04-05 23:59:00 Hospital Encounter Najma Rocha [facility] 1.2840.114 350.1.13.10 4.2.7.2.686 [id number] [facility] 2023-04-05 13:04:20 2023-04-05 13:05:00 Hospital Encounter Najma Rocha [facility] 1.2840.114 350.1.13.10 4.2.7.2.686 [id number] [facility] 2023-04-05 13:04:20 2023-04-05 13:05:00 Outpatient R NAJMA ROCHA [facility] [id number] [facility] 2023-03-25 11:00:00 2023-03-25 11:00:00 Outpatient R NAJMA ROCHA [facility] [id number] [facility] 2023-03-09 10:00:00 2023-03-09 11:26:12 [facility] [id number] 2023-03-09 10:00:00 2023-03-09 11:26:12 Office Visit Najma Rocha [facility] FOOD SCIENCE PROFESSOR [facility] ..114 350.1.13.10 4.2.7.2.686 [id number] [facility] 2023-03-09 00:00:00 2023-03-09 00:00:00 Orders Only Doctor Unassigned, [place] [facility] ..114 350.1.13.10 4.2.7.2.686 [id number] [facility] 2023-03-09 00:00:00 2023-03-09 00:00:00 Case Management Najam Rocha [facility] FOOD SCIENCE PROFESSOR [facility] 1.0.114 350.1.13.10 4.2.7.2.686 [id number] [facility] 2023-02-26 00:00:00 2023-02-26 00:00:00 Telephone Pcp, Patient Does Not Have A [facility] FOOD SCIENCE PROFESSOR [facility] CHILD [facility] 1..114 350.1.13.10 4.2.7.2.686 [id number] [facility] Results Test Description Test Time Test Comments Results Resul t Comments Source XR Foot 3+ vw left 2025-02-26 01:38:05 LEFT ANKLE AND LEFT FOOT X-RAYS HISTORY: Foot and ankle pain after injury Ordering physician: DRAGAN QURESHI TECHNIQUE: ?3 views of the left ankle and 3 views of the left foot. COMPARISON: ?None RESULT:No evidence of acute fracture. ?The articular surfaces are preserved. ?Theankle mortise is intact. There is mild forefoot edema. There is a posterior and inferior calcaneal enthesophyte present. [facility] XR Ankle 3+ vw left 2025-02-26 01:38:05 LEFT ANKLE AND LEFT FOOT X-RAYS HISTORY: Foot and ankle pain after injury Ordering physician: DRAGAN QURESHI TECHNIQUE: ?3 views of the left ankle and 3 views of the left foot. COMPARISON: ?None RESULT:No evidence of acute fracture. ?The articular surfaces are preserved. ?Theankle mortise is intact. There is mild forefoot edema. There is a posterior and inferior calcaneal enthesophyte present. [facility]2024-07-29 09:46:36* Test Item Value Reference Range Interpretation Comme [facility] HGB A1C (test code = 4548-4) 4.9 % 4.0-5.7 GÉNESIS (test code = GÉNESIS) Reference RangesNormal: <5.7%Prediabetes: 5.7 - 6.4%Diabetes: > 6.5% Lab Interpretation (test code = 79958-4) [facility] WITH [id number] 08:45:22* Test Item Value Reference Range Interpretation Comme nts HIV Semi-quantitative (test code = 46763-6) 0.10 Negative GÉNESIS (test code = GÉNESIS) Non-reactive for HIV-1 antigen and HIV-1/HIV-2 antibodies. ?No laboratory evidence of HIV infection. ?Repeat in 2-4 weeks if acute HIV infection is suspected. [facility] [id number] 07:14:51* Test Item Value Reference Range Interpretation Comme nts HCV Ab (test code = 94458-5) Negative HCV Semi-Quantitative (test code = 23684-3) 0.07 [facility] [id number] 06:57:32 * Test Item Value Reference Range Interpretation Comme nts TSH (test code = 5856581542) 1.78 0.45-4.70 Biotin has been reported to cause a negative bias, interpret results relative to patient's use of biotin. Lab Interpretation (test code = 98007-5) Normal [facility] (12360)(TOTAL CHOLESTEROL, TRIGLYCERIDES, HDL)2024-07-29 06:23:06* Test Item Value Reference Range Interpretation Comme nts CHOL (test code = 0364687904) 156 mg/dL 120-200 HDL (test code = 0492698187) 50 mg/dL >=50 L HDLC RATIO (test code = 3820989022) 3.1 <=4.5 TRIG (test code = 9223912752) 111 mg/dL 30-170 LDL CHOL (test code = 54610-5) 84 mg/dL <=160 VLDL (test code = 0966423923) 22 mg/dL 5-60 Lab Interpretation (test cod e = 22653-7) [facility]normal [facility] (20866)2024-07-29 06:23:06* Test Item Value Reference Range Interpretation Comme nts NA (test code = 4186210188) 141 mmol/L 135-145 K (test code = 9338207644) 4.2 mmol/L 3.5-5.0 CL (test code = 6155262605) 102 mmol/L 98-108 CO2 TOTAL (test code = 1653572167) 31 mmol/L 23-31 AGAP (test code = 0371792686) 8 2-16 BUN (test code = 2305244276) 17 mg/dL 7-23 GLUCOSE (test code = 1246342896) 82 mg/dL 70-110 CREATININE (test code = 2160-0) 0.73 mg/dL 0.50-1.04 TOTAL BILI (test code = 9462945973) 0.4 mg/dL 0.1-1.1 CALCIUM (test code = 2517915509) 9.5 mg/dL 8.6-10.6 T PROTEIN (test code = 7150186922) 7.8 g/dL 6.3-8.2 ALBUMIN (test code = 4346978203) 4.5 g/dL 3.5-5.0 ALK PHOS (test code = 1505921046) 64 U/L 34-122 ALTv (test code = 1742-6) 23 U/L 5-35 AST(SGOT) (test code = 6852412467) 34 U/L 13-40 eGFR (test code = 06669-6) 109.5 mL/min/1.73m2 CKD-EPI eGFR (20 21). Assuming creatinine has been stable day-to-day for at least three months, the eGFR indicates Category G1 (>= 90 mL/min/1.73 m2) [facility] WITH [id number] 05:31:41* Test Item Value Reference Range Interpretation Comme nts WBC (test code = 6690-2) 9.23 4.30-11.10 RBC (test code = 789-8) 5.10 3.93-5.25 HGB (test code = 718-7) 14.4 g/dL 11.6-15.0 HCT (test code = 4544-3) 44.7 % 35.7-45.2 MCV (test code = 787-2) 87.6 fL 80.6-95.5 MCH (test code = 785-6) 28.2 pg 25.9-32.8 MCHC (test code = 786-4) 32.2 g/dL 31.6-35.1 RDW-SD (test code = 82456-9) 43.8 fL 39.0-49.9 RDW-CV (test code = 788-0) 13.6 % 12.0-15.5 PLT (test code = 777-3) 251 166-358 MPV (test code = 61788-0) 11.9 fL 9.5-12.9 NRBC/100 WBC (test code = 0856192674) 0.0 0.0-10.0 NRBC x10^3 (test code = 2790980041) See_Comment [Automated me ssage] The system which generated this result transmitted reference range: 10*3/?L. The reference range was not used to interpret this result as normal/abnormal. GRAN MAT (NEUT) % (test code = 770-8) 70.3 % IMM GRAN % (test code = 1157894589) 0.30 % LYMPH % (test code = 736-9) 19.5 % MONO % (test code = 5905-5) 8.3 % EOS % (test code = 713-8) 1.2 % BASO % (test code = 706-2) 0.4 % GRAN MAT x10^3(ANC) (test code = 1994814455) 6.48 10*3/uL 1.88-7.09 IMM GRAN x10^3 (test code = 8213007061) 0.03 10*3/uL 0.00-0.06 LYMPH x10^3 (test code = 731-0) 1.80 10*3/uL 1.32-3.29 MONO x10^3 (test code = 742-7) 0.77 10*3/uL 0.33-0.92 EOS x10^3 (test code = 711-2) 0.11 10*3/uL 0.03-0.39 BASO x10^3 (test code = 704-7) 0.04 10*3/uL 0.01-0.07 [facility] Notes Date/Time Note Provider Source 2025-02-25 21:21:05 Dc instructions reviewed with patient. No prescriptions written, no home meds changed. Crutch use reviewed with patient. She was able to take steps with crutches in room. She was provided with written instructions for crutch use as well. She has no PCP-she was provided with the [facility] Access Center phone number and web site for assistance in obtaining follow up care. She understands to use acetaminophen or ibuprofen for pain management, and to apply ice to her ankle several times a day, also to keep left leg elevated as much as possible to reduce swelling. She verbalized understanding of instructions and was Dc'd via W/C-warm, dry, pink, alert. She received a shot of toradol 30 mg Im prior to DC for left ankle pain 12/21. Arash Diaz RN [facility] 2025-02-25 21:00:00 Justin wrap applied to left ankle as instructed for support and immobilization. Patient instructed to loosen wrap if foot/toes became cool, numb, or blue. She was instructed to keep her leg elevated as much as possible to minimize swelling and pain. She verbalized understanding. 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 PT STATES SHE IS UNABLE TO STAND ON HER FOOT. SWELLING NOTED TO LEFT FOOT. Yasmeen Logan RN [facility] 2023-02-26 16:27:30 Formatting of this n ote might be different from the original. Noted. Vandana Daniels LVN [facility] 2023-02-26 16:12:52 Formatting of this n ote might be different from the original. 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 Marcia Arellano [facility] 2023-02-26 13:42:42 Formatting of this n ote might be different from the original. Belia Peter is a 33 year old female Pt is calling because the Tia referred her to call for ER follow up from Ultrasound done Wednesday for lump on her breast and left breast pain. Please contact pt at [phone]. Gisselle Fulton [facility]
[2025-04-02 12:35] LABS: Urine Culture Reflex Order NOT NEEDED; Urine Microscopic Reflex YN ORDER UMIC
[2025-04-02] MEDS ORDERED: ONDANSETRON 4 MG/2 ML VIAL ONE (14:34)
[2025-04-02] MEDS ORDERED: HYDROMORPHONE HCL 1 MG/ML INJ ONE (14:34)
[2025-04-02] MEDS ORDERED: KETOROLAC 30 MG/ML INJ ONE (14:34)
[2025-04-02] MEDS ORDERED: NA CHLORIDE 0.9% 1,000 ML ONE (14:35)
--- NOTE | 2025-04-02 15:05 | RAD REPORT ---
EXAMINATION: Abdomen Pelvis Wo Contrast CLINICAL INDICATION: Female, 35 years old.FLANK PAIN TECHNIQUE: CT abdomen and pelvis was performed, without IV contrast, as per department protocol. Axia l, sagittal and coronal reconstructions were obtained. One or more of the following dose reduction techniques were used: Automated exposure control, adjustment of the mA and/or kV according to the pat ient size, and/or iterative reconstruction. Unless otherwise specified, incidental findings do not require dedicated imaging follow-up. [id number]. IV CONTRAST: Not administered. COMPARISON: 06/15/2022 FINDINGS: The lack of intravenous contrast limits the sensitivity of this exam for evaluation of solid visceral organs, vascular structures, and retroperitoneum. LOWER CHEST: No acute process identified. No significant pericardial effusion. UPPER GI: No significant abnormality. LIVER: Scattered coarse liver calcifications. No suspicious mass. GALLBLADDER/BILE DUCTS: Cholecystectomy.? PANCREAS: No mass, ductal dilation, or darius-pancreatic fluid. SPLEEN: Unremarkable. ADRENALS: No adrenal masses. KIDNEYS AND URETERS: No hydronephrosis. Limited evaluation for renal lesions in the absence of IV con trast. No renal calculi. No ureteral calculi. ABDOMINAL AORTA AND OTHER VESSELS: Normal caliber aorta and IVC. PERITONEUM: No abnormal free fluid. No free air. LYMPH NODES: No pathologic lymphadenopathy. ABDOMINAL WALL: Unremarkable SMALL BOWEL/COLON: Small bowel has normal course and caliber. No colonic wall thickening or pericolon ic inflammatory changes. Normal appendix. URINARY BLADDER: Underdistended but grossly unremarkable. REPRODUCTIVE ORGANS: Uterus surgically absent. No adnexal abnormality. MUSCULOSKELETAL: Mild disc height loss and retrolisthesis of L5 on S1. ADDITIONAL FINDINGS: None. IMPRESSION: No acute findings within the abdomen or pelvis. No appendicitis.
[2025-04-02 15:07] LABS: Absolute Lymphocytes (CBC) 1.8 K/uL (0.7-4.9); Hematocrit 40.9 % (36.0-45.0); Hemoglobin 13.6 g/dL (12.0-15.0); MCH 27.5 pg (27.0-35.0); MCHC 33.1 g/dL (32.0-36.0); MCV 82.9 fL (80-100); MPV 9.4 fL (7.6-11.3); Nucleated RBC Absolute Count 0.0 (0-0); Nucleated Red Blood Cells % 0.1 % (0-0); RBC Red Blood Cell Count 4.94 M/uL (3.86-4.86); White Blood Count 8.80 thou/uL (4.3-10.9)
[2025-04-02 15:25] LABS: ALT/SGPT 30.0 U/L (13-56); AST/SGOT 21.0 U/L (15-37); Albumin 3.6 g/dL (3.4-5.0); Albumin/Globulin Ratio 0.8 (1.1-1.8); Alkaline Phosphatase 66.0 U/L (45-117); Anion Gap 6.5 mEq/L (5.0-15.0); BUN Blood Urea Nitrogen 14.0 mg/dL (7-18); Globulin 4.4 g/dL (2.3-3.5); Glucose Level 83.0 mg/dL (74-106); Lipase 16.0 U/L (13-75); Potassium 3.5 mEq/L (3.5-5.1)
--- NOTE | 2025-04-02 16:14 | ER ---
Nurse's Notes [facility] Name: Belia Peter Age: 35 yrs Sex: Female : 1990 Arrival Date: 04/02/2025 Time: 09:58 Bed 11 Private MD: Diagnosis: Flank pain, microscopic hematuria Presentation: 04/02 10:09 Chief complaint: Patient states: JYOTI MIDDLE AND LOWER BACK PAIN, BURNING WITH URINATION dd2 AND FREQUENCY THAT BEGAN THIS MORNING. Coronavirus screen: At this time, the client does not indicate any symptoms associated with coronavirus-19. Ebola Screen: No symptoms or risks identified at this time. Initial Sepsis Screen: Does the patient meet any 2 criteria? No. Patient's initial sepsis screen is negative. Does the patient have a suspected source of infection? No. Patient's initial sepsis screen is negative. Risk Assessment: Do you want to hurt yourself or someone else? Patient reports no desire to harm self or others. Onset of symptoms. 10:09 Method Of Arrival: Ambulatory dd2 10:09 Acuity: PRIMO 3 dd2 Triage Assessment: 10:10 General: Appears in no apparent distress. uncomfortable, Behavior is calm, cooperative, dd2 appropriate for age. : Reports pain in bilateral in lower back with urination, urgency, urinary frequency. 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 dd2 Historical: - Allergies: 10:10 No Known Allergies; dd2 - PMHx: 10:10 chronic back pain; dd2 - PSHx: 10:10 back sx; Cholecystectomy; hysterectomy; dd2 Screenin:02 [facility] ED Fall Risk Assessment (Adult) History of falling in the last 3 months, hb including since admission No falls in past 3 months (0 pts) Confusion or Disorientation No (0 pts) Intoxicated or Sedated No (0 pts) Impaired Gait No (0 pts) Mobility Assist Device Used No (0 pt) Altered Elimination No (0 pt) Score/Fall Risk Level 0 - 2 = Low Risk Oriented to surroundings, Maintained a safe environment, Educated pt \T\ family on fall prevention, incl call for assistance when getting out of bed. Abuse screen: Denies threats or abuse. Denies injuries from another. Nutritional screening: No deficits noted. Tuberculosis screening: No symptoms or risk factors identified. Assessment: 15:02 General: Appears in no apparent distress. Behavior is calm, cooperative. Pain: Pain hb currently is 7 out of 10 on a pain scale. Neuro: Level of Consciousness is awake, alert, obeys commands, Oriented to person, place, time, situation. Cardiovascular: Patient's skin is warm and dry. Respiratory: Respiratory effort is even, unlabored, Respiratory pattern is regular, symmetrical. GI: Reports lower abdominal pain. : Reports dysuria. EENT: No signs and/or symptoms were reported regarding the EENT system. Derm: Skin is pink, warm \T\ dry. Musculoskeletal: No signs and/or symptoms reported regarding the musculoskeletal system. 16:41 Reassessment: Patient appears in no apparent distress at this time. Patient and/or jb4 family updated on plan of care and expected duration. Pain level reassessed. Patient is alert, oriented x 3, equal unlabored respirations, skin warm/dry/pink. Vital Signs: 10:09 BP 127 / 91; Pulse 70; Resp 16; Temp 98.3; Pulse Ox 98% ; Weight 115.67 kg; Height 5 dd2 ft. 7 in. ; Pain 8/10; 10:09 Body Mass Index 39.94 (115.67 kg, 170.18 cm) dd2 10:09 Pain Scale: Adult dd2 ED Course: 10:05 Patient arrived in ED. al6 10:05 Bolivar Rodriguez MD is Attending Physician. sp3 10:10 Triage completed. dd2 10:10 Arm band placed on right wrist. dd2 12:24 Test, Urine Sent. hb 12:24 UA Rfx Alexx Cult if indicated Sent. hb 14:30 Alexandra Moore, RN is Primary Nurse. hb 14:46 CT Abd/Pelvis - Without Contrast In Process Unspecified. EDMS 15:00 Inserted saline lock: 22 gauge in left antecubital area, using aseptic technique. Blood hb collected. Flushed with 10 mL NS. 15:01 CBC with Diff Sent. hb 15:01 CMP Sent. hb 15:01 Lipase Sent. hb 16:41 Patient has correct armband on for positive identification. Bed in low position. Call jb4 light in reach. Side rails up X 1. Provided Education on: discharge instructions. 16:41 No provider procedures requiring assistance completed. IV discontinued, intact, jb4 bleeding controlled, No redness/swelling at site. Pressure dressing applied. Administered Medications: 15:00 Drug: NS 0.9% IV 1000 ml IV at 1 bolus Per protocol; to be given as a bolus over 60 hb minutes Route: IV; Rate: 1 bolus; Site: left antecubital; 15:00 Drug: HYDROmorphone IVP 1 mg IVP once Route: IVP; Site: left antecubital; hb 15:01 Drug: TORadol - Ketorolac IVP 15 mg IVP once Route: IVP; Site: left antecubital; hb 15:01 Drug: Ondansetron IVP 4 mg IVP once; over 2 minutes Route: IVP; Site: left antecubital; hb Medication: 16:41 VIS not applicable for this client. jb4 Outcome: 16:14 Discharge ordered by MD. omalley 16:41 Discharged to home ambulatory, with family, jb4 16:41 Condition: stable 16:41 Discharge instructions given to patient, Instructed on discharge instructions, follow up and referral plans. no drinking with medication, no driving heavy equipment, medication usage, Demonstrated understanding of instructions, follow-up care, medications, Prescriptions given X 2, 16:44 Patient left the ED. jb4 Signatures: Dispatcher [employer] EDMS Alexandra Moore RN RN Sylvester Cedillo RN RN jb4 Bolivar Rodriguez MD MD sp3 MICAH PRADO RN RN dd2 Fatmata Davies
--- NOTE | 2025-04-02 16:14 | EDPHYS ---
Physician Documentation [facility] Name: Belia Peter Age: 35 yrs Sex: Female : 1990 Arrival Date: 04/02/2025 Time: 09:58 Bed 11 Private MD: ED Physician Bolivar Rodriguez HPI: 04/02 14:51 This 35 yrs old Female presents to ER via Ambulatory with complaints of Urinary sp3 Incontinence. 14:51 35-year-old female with history of chronic back pain presents to the ED with chief sp3 complaint dysuria, urinary frequency and left greater than right flank pain. No history of kidney stones reported. Patient denies any headache, neck pain, chest pain, shortness of breath, intra-abdominal pain except over the bladder, or any other signs or symptoms on ROS at this time. She is status post hysterectomy so is not possible.. 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 dd2 Historical: - Allergies: 10:10 No Known Allergies; dd2 - PMHx: 10:10 chronic back pain; dd2 - PSHx: 10:10 back sx; Cholecystectomy; hysterectomy; dd2 ROS: 14:58 Constitutional: Negative for fever, chills, and weight loss, Eyes: Negative for injury, sp3 pain, redness, and discharge, ENT: Negative for injury, pain, and discharge, Neck: Negative for injury, pain, and swelling, Cardiovascular: Negative for chest pain, palpitations, and edema, Respiratory: Negative for shortness of breath, cough, wheezing, and pleuritic chest pain, MS/Extremity: Negative for injury and deformity, Skin: Negative for injury, rash, and discoloration, Neuro: Negative for headache, weakness, numbness, tingling, and seizure, Psych: Negative for depression, anxiety, suicide ideation, homicidal ideation, and hallucinations, Allergy/Immunology: Negative for hives, rash, and allergies, Endocrine: Negative for neck swelling, polydipsia, polyuria, polyphagia, and marked weight changes, Hematologic/Lymphatic: Negative for swollen nodes, abnormal bleeding, and unusual bruising, 14:58 All other systems are negative, Exam: 14:58 Constitutional: This is a well developed, well nourished patient who is awake, alert, sp3 and in no acute distress. Head/Face: Normocephalic, atraumatic. Eyes: Pupils equal round and reactive to light, extra-ocular motions intact. Lids and lashes normal. Conjunctiva and sclera are non-icteric and not injected. Cornea within normal limits. Periorbital areas with no swelling, redness, or edema. Neck: Trachea midline, no thyromegaly or masses palpated, and no cervical lymphadenopathy. Supple, full range of motion without nuchal rigidity, or vertebral point tenderness. No Meningismus. Chest/axilla: Normal chest wall appearance and motion. Nontender with no deformity. No lesions are appreciated. Cardiovascular: Regular rate and rhythm with a normal S1 and S2. No gallops, murmurs, or rubs. Normal PMI, no JVD. No pulse deficits. Respiratory: Lungs have equal breath sounds bilaterally, clear to auscultation and percussion. No rales, rhonchi or wheezes noted. No increased work of breathing, no retractions or nasal flaring. Skin: Warm, dry with normal turgor. Normal color with no rashes, no lesions, and no evidence of cellulitis. MS/ Extremity: Pulses equal, no cyanosis. Neurovascular intact. Full, normal range of motion. Neuro: Awake and alert, GCS 15, oriented to person, place, time, and situation. Cranial nerves II-XII grossly intact. Motor strength 5/5 in all extremities. Sensory grossly intact. Cerebellar exam normal. Normal gait. Psych: Awake, alert, with orientation to person, place and time. Behavior, mood, and affect are within normal limits. 14:58 Abdomen/GI: Mild suprapubic pain to palpation without peritoneal signs, rebound or guarding. Mild left CVA tenderness., Vital Signs: 10:09 BP 127 / 91; Pulse 70; Resp 16; Temp 98.3; Pulse Ox 98% ; Weight 115.67 kg; Height 5 dd2 ft. 7 in. ; Pain 8/10; 10:09 Body Mass Index 39.94 (115.67 kg, 170.18 cm) dd2 10:09 Pain Scale: Adult dd2 MDM: 10:09 Medical Screening Exam initiated sp3 14:58 Data reviewed: vital signs, nurses notes, lab test result(s), radiologic studies. ED sp3 course: 35-year-old female with urinary symptoms coupled with suprapubic pain and flank pain. Differential diagnosis includes UTI/pyelonephritis spectrum, ureterolithiasis/kidney stone spectrum, colitis, musculoskeletal, other intra-abdominal process. Workup will include UA, general labs and CT scan of the abdomen pelvis kidney stone protocol. IV meds for pain and nausea control. Disposition pending workup and patient course.. 16:12 ED course: Full workup negative. Will discharge patient with antibiotics with sp3 instructions to start in 5 days if she is not improved. Patient likely had passed kidney stone.. 04/02 10:09 Order name: UA Rfx Alexx Cult if indicated; Complete Time: 13:30 sp3 04/02 10:09 Order name: Test, Urine; Complete Time: 13:30 sp3 04/02 14:26 Order name: CBC with Diff; Complete Time: 15:19 sp3 04/02 14:26 Order name: CMP; Complete Time: 15:26 sp3 04/02 14:26 Order name: Lipase; Complete Time: 15:26 sp3 04/02 14:26 Order name: CT Abd/Pelvis - Without Contrast; Complete Time: 15: sp3 04/02 14:26 Order name: IV Saline Lock; Complete Time: 15: sp3 04/02 14:26 Order name: Labs collected and sent; Complete Time: 15:01 sp3 Administered Medications: 15:00 Drug: NS 0.9% IV 1000 ml IV at 1 bolus Per protocol; to be given as a bolus over 60 hb minutes Route: IV; Rate: 1 bolus; Site: left antecubital; 15:00 Drug: HYDROmorphone IVP 1 mg IVP once Route: IVP; Site: left antecubital; hb 15:01 Drug: TORadol - Ketorolac IVP 15 mg IVP once Route: IVP; Site: left antecubital; hb 15:01 Drug: Ondansetron IVP 4 mg IVP once; over 2 minutes Route: IVP; Site: left antecubital; hb Disposition Summary: 04/02/25 16:14 Discharge Ordered Notes: Start Bactrim and 3 days if you are still symptomatic. Location: Home sp3 Condition: Stable sp3 Diagnosis - Flank pain, microscopic hematuria sp3 Followup: sp3 - With: Private Physician - When: Upon discharge from the Emergency Department - Reason: Continuance of care Discharge Instructions: - Discharge Summary Sheet sp3 - Flank Pain, Adult sp3 Forms: - Work release form jb4 - Medication Reconciliation Form sp3 - Antibiotic Education sp3 - Prescription Opioid Use sp3 - Patient Portal Instructions sp3 - Leadership Thank You Letter sp3 Prescriptions: - Tramadol 50 mg Oral Tablet - take 1 tablet ORAL route every 8 hours as needed; 12 tablet; Refills: 0, sp3 Product Selection Permitted - Bactrim DS 800-160 mg Oral tablet - take 1 tablet ORAL route every 12 hours for 5 days; 10 tablet; Refills: 0, sp3 Product Selection Permitted Signatures: Dispatcher [employer] EDMS Alexandra Moore RN RN hb Bolivar Rodriguez MD MD sp3 MICAH PRADO RN RN dd2 Corrections: (The following items were deleted from the chart) 14:27 14:27 Abdomen Pelvis Wo [id number] ordered. EDMS EDMS
[2025-04-02 21:06] VITALS: BP 127/91; TEMP 98.3; O2SAT 98
== END 2025-04-02 16:44 | disposition home or self-care (01) ==
LOC: ER 09:58
DX: R10.A2 Flank pain, left side (principal); R31.29 Other microscopic hematuria
CPT/HCPCS: 36415; 74176; 80053; 81001; 81025; 83690; 85025; 96374; 96375; 99284; J1171; J1885; J2405; J7030